=== PATIENT | female | born 1965 | race African-American/Black ===

== ENCOUNTER 2019-02-05 08:22 | Observation (INO) ==
[2019-02-05 08:50] LABS: Basophils % 0.3 % (0.0-0.8); Eosinophils # 0.1 10*3/uL (0.0-0.87); Eosinophils % 1.7 % (0.00-10.9); Hemoglobin 11.8 GM/DL (12.0-16.0); Immature Granulocytes % 0.3 %; Immature Granulocytes Absolute 0.02 #; Lymphocytes % 34.1 % (21.3-54.2); Mean Corpuscular HGB Conc 30.3 GM/DL (32-36); Mean Corpuscular Volume 87.1 FL (87-102); Mean Platelet Volume 9.4 FL (9.6-12.0); Monocytes % 6.9 % (1.7-12.7); Neutrophils % 56.7 % (38.7-73.9); Platelet Count 175 T/CUMM (130-400); Red Blood Count 4.48 MC/CUMM (3.8-5.5); Red Cell Distribution Width 15.9 % (9.3-17.3)
[2019-02-05 09:17] LABS: Alanine Aminotransferase 37 U/L (13-56); Alkaline Phosphatase 99 U/L (45-117); Aspartate Amino Transferase 56 U/L (0-37); Bilirubin,Total < 0.39 MG/DL (0.2-1.0); Blood Urea Nitrogen 16 MG/DL (7-18); Calcium 8.7 MG/DL (8.5-10.1); Glucose 149 MG/DL (74-106); Osmolality,Calculated 280.5 MOS/KG (273-304); Total Protein 9.6 G/DL (6.4-8.3)
[2019-02-05] MEDS ORDERED: traZODone 50 MG TABLET PO PRN (13:31)
[2019-02-05] MEDS ORDERED: ACETAMINOPHEN 325 MG TABLET PO PRN (13:31)
[2019-02-05] MEDS ORDERED: PROMETHAZINE 25 MG/1 ML VIAL IM PRN (13:31)
[2019-02-05] MEDS ORDERED: ZALEPLON 5 MG CAPSULE PO PRN (13:31)
[2019-02-05] MEDS ORDERED: ONDANSETRON 4 MG/2 ML VIAL IV PRN (13:31)
[2019-02-05] MEDS ORDERED: HYDROmorphone 2 MG/1 ML VIAL IV PRN (13:35)
[2019-02-05] MEDS ORDERED: ALUM/MAG/SIMETH/LIDO VISC 1:1 30 ML BOTTLE PO STA (13:45)
[2019-02-05] MEDS ORDERED: PANTOPRAZOLE 40 MG TABLET PO SCH (14:00)
[2019-02-05] MEDS: ENOXAPARIN 120 MG/0.8 ML SYRINGE SUBCUT SCH (14:13)
[2019-02-05] MEDS: SODIUM CHLORIDE 0.9% 1,000 ML IV SCH ×2 (14:13→22:28)
[2019-02-05 14:51] LABS: Free T4 (Free Thyroxine) 1.01 NG/DL (0.76-1.46)
[2019-02-05] MEDS ORDERED: LEVOTHYROXINE 125 MCG TABLET PO SCH (15:17)
[2019-02-05] MEDS ORDERED: NON-FORMULARY MEDICATION (Omeprazole 40 MG) PO SCH (15:17)
[2019-02-05 15:35] LABS: Apearance,Urine CLEAR (Clear); Bilirubin,Urine Negative (Negative); Blood, Urine Negative (Negative); Glucose,Urine (UA) Negative (Negative); Ketones,Urine Negative (Negative); Mucus,Urine Occasional /LPF (Occasional); Nitrite,Urine Negative (Negative); Protein,Urine Negative; RBC,Urine 3 /HPF (0-4); Squamous Epithelial Cell,Urine Occasional /HPF (0-10); Urine Color Straw (Yellow); Urine Specific Gravity 1.053 (1.001-1.035); Urine Urobilinogen < 2.0 EU/DL (0.2-1.0); WBC,Urine 5 /HPF (0-6)
[2019-02-05] MEDS: METAXALONE 800 MG TABLET PO SCH ×2 (15:45→22:22)
[2019-02-05] MEDS ORDERED: MAGNESIUM SULF RIDER 2 GM in PREMIX 1 EACH IV STA (15:46)
[2019-02-05] MEDS: LISINOPRIL/HCTZ 20-25 MG TABLET PO SCH (17:55)
[2019-02-05 19:48] LABS: Troponin I 0.027 NG/ML (0.00-0.045)
[2019-02-05] MEDS ORDERED: SIMVASTATIN 10 MG TABLET PO SCH (21:00)
[2019-02-05] MEDS: PANTOPRAZOLE 40 MG TABLET PO SCH (22:22)
[2019-02-06] MEDS: ENOXAPARIN 120 MG/0.8 ML SYRINGE SUBCUT SCH (01:25)
[2019-02-06 05:07] LABS: Basophils % 0.4 % (0.0-0.8); Eosinophils # 0.2 10*3/uL (0.0-0.87); Eosinophils % 2.8 % (0.00-10.9); Hematocrit 36.8 VOL% (35.7-47.0); Immature Granulocytes % 0.5 %; Immature Granulocytes Absolute 0.03 #; Lymphocytes # 2.1 10*3/uL (1.4-4.0); Lymphocytes % 36.3 % (21.3-54.2); Mean Corpuscular HGB Conc 29.9 GM/DL (32-36); Mean Corpuscular Volume 87.8 FL (87-102); Mean Platelet Volume 9.9 FL (9.6-12.0); Monocytes % 8.3 % (1.7-12.7); Neutrophils % 51.7 % (38.7-73.9); Platelet Count 163 T/CUMM (130-400); Red Blood Count 4.19 MC/CUMM (3.8-5.5); Red Cell Distribution Width 15.9 % (9.3-17.3); White Blood Count 5.7 T/CUMM (4-12)
[2019-02-06 05:30] LABS: Albumin 2.7 G/DL (3.4-5.0); Bilirubin,Total 0.5 MG/DL (0.2-1.0); Calcium 8.4 MG/DL (8.5-10.1); Osmolality,Calculated 278.5 MOS/KG (273-304); Risk Ratio 5.09
[2019-02-06] MEDS: SODIUM CHLORIDE 0.9% 1,000 ML IV SCH (06:28)
[2019-02-06] MEDS ORDERED: KETOROLAC 30 MG/1 ML VIAL IV ONE (08:00)
[2019-02-06] MEDS ORDERED: ASPIRIN EC 81 MG TABLET PO SCH (09:00)
[2019-02-06] MEDS: METAXALONE 800 MG TABLET PO SCH (09:09)
[2019-02-06] MEDS: LISINOPRIL/HCTZ 20-25 MG TABLET PO SCH (09:09)
[2019-02-06] MEDS: PANTOPRAZOLE 40 MG TABLET PO SCH (09:09)
[2019-02-06 11:40] VITALS: BP 122/59
[2019-02-07] MEDS ORDERED: LEVOTHYROXINE 175 MCG TABLET PO SCH (06:30)
== END 2019-02-06 13:38 | disposition home or self-care (01) ==
LOC: N.ED 08:22 → N.EDINP 08:22 → N.TELES 18:26
PROVIDERS: ADMIT Emergency Medicine; ATTEND Emergency Medicine

== ENCOUNTER 2019-08-14 16:43 | Observation (INO) ==
[2019-08-14] MEDS ORDERED: KETOROLAC 30 MG/1 ML VIAL IV STA (17:42)
[2019-08-14] MEDS ORDERED: ONDANSETRON 4 MG/2 ML VIAL IV STA (17:42)
[2019-08-14] MEDS ORDERED: DICYCLOMINE 20 MG/2 ML AMP IM ONE (17:43)
[2019-08-14 18:36] LABS: Basophils % 0.1 % (0.0-0.8); Eosinophils # 0.2 10*3/uL (0.0-0.87); Eosinophils % 2.2 % (0.00-10.9); Hematocrit 35.2 VOL% (35.7-47.0); Hemoglobin 10.9 GM/DL (12.0-16.0); Immature Granulocytes % 0.3 %; Immature Granulocytes Absolute 0.02 #; Lymphocytes % 25.1 % (21.3-54.2); Mean Corpuscular Volume 85.6 FL (87-102); Mean Platelet Volume 9.7 FL (9.6-12.0); Monocytes % 6.7 % (1.7-12.7); Neutrophils % 65.6 % (38.7-73.9); Platelet Count 115 T/CUMM (130-400); Red Blood Count 4.11 MC/CUMM (3.8-5.5); Red Cell Distribution Width 16.7 % (9.3-17.3); White Blood Count 7.9 T/CUMM (4-12)
[2019-08-14 18:59] LABS: Amylase 71 U/L (25-115)
[2019-08-14 19:21] LABS: Estimated Glom Filtration Rate 66 ML/MIN; Glucose 93 MG/DL (74-106); Troponin I < 0.015 NG/ML (0.00-0.045)
[2019-08-14 19:22] LABS: Alanine Aminotransferase 37 U/L (13-56); Albumin 2.9 G/DL (3.4-5.0); Alkaline Phosphatase 134 U/L (45-117); Aspartate Amino Transferase 54 U/L (0-37); Bilirubin,Total < 0.39 MG/DL (0.2-1.0); Blood Urea Nitrogen 22 MG/DL (7-18); Calcium 8.5 MG/DL (8.5-10.1); Osmolality,Calculated 281.4 MOS/KG (273-304); Total Protein 10.4 G/DL (6.4-8.3)
[2019-08-14] MEDS ORDERED: SODIUM CHLORIDE 0.9% 1,000 ML IV STA (19:25)
[2019-08-14 19:55] LABS: Apearance,Urine Slightly Hazy (Clear); Bilirubin,Urine Negative (Negative); Blood, Urine Small mg/dL (Negative); Glucose,Urine (UA) Negative (Negative); Hyaline Casts,Urine 6 /LPF (0-3); Ketones,Urine Negative (Negative); Mucus,Urine Occasional /LPF (Occasional); Nitrite,Urine Negative (Negative); Protein,Urine 30 MG/DL; RBC,Urine 2 /HPF (0-4); Squamous Epithelial Cell,Urine Occasional /HPF (0-10); Urine Color Yellow (Yellow); Urine Specific Gravity 1.027 (1.001-1.035); Urine Urobilinogen < 2.0 EU/DL (0.2-1.0); WBC,Urine 11 /HPF (0-6)
[2019-08-14] MEDS ORDERED: ACETAMINOPHEN 325 MG TABLET PO PRN (20:32)
[2019-08-14] MEDS ORDERED: ONDANSETRON 4 MG/2 ML VIAL IV PRN (20:32)
[2019-08-14] MEDS ORDERED: DEXTROSE 10% 250 ML BAG IV PRN (20:37)
[2019-08-14] MEDS ORDERED: GLUCAGON 1 MG VIAL IM PRN (20:37)
[2019-08-14] MEDS: cefTRIAXone 1,000 MG in SYRINGE 1 EACH IV SCH (21:24)
[2019-08-14] MEDS: SODIUM CHLORIDE 0.9% 1,000 ML IV SCH (21:24)
[2019-08-14] MEDS ORDERED: MAGNESIUM SULF RIDER 1 GM in PREMIX 1 EACH IV ONE (21:30)
[2019-08-14] MEDS: INSULIN REGULAR 100 UNIT/ML SUBCUT SCH (23:19)
[2019-08-14] MEDS: carvediloL 6.25 MG TABLET PO SCH (23:20)
[2019-08-14] MEDS: ENOXAPARIN 40 MG/0.4 ML SYRINGE SUBCUT SCH (23:20)
[2019-08-15 06:20] LABS: Total Protein (Chem) 10.5 G/DL (6.4-8.3)
[2019-08-15 06:56] LABS: Basophils % 0.3 % (0.0-0.8); Eosinophils # 0.2 10*3/uL (0.0-0.87); Eosinophils % 2.1 % (0.00-10.9); Hematocrit 32.9 VOL% (35.7-47.0); Hemoglobin 10.2 GM/DL (12.0-16.0); Immature Granulocytes % 0.3 %; Immature Granulocytes Absolute 0.02 #; Lymphocytes # 1.6 10*3/uL (1.4-4.0); Lymphocytes % 21.2 % (21.3-54.2); Monocytes % 5.9 % (1.7-12.7); Neutrophils % 70.2 % (38.7-73.9); Platelet Count 155 T/CUMM (130-400); Red Blood Count 3.87 MC/CUMM (3.8-5.5); Red Cell Distribution Width 16.6 % (9.3-17.3); White Blood Count 7.7 T/CUMM (4-12)
[2019-08-15] MEDS: LEVOTHYROXINE 175 MCG TABLET PO SCH (07:03)
[2019-08-15 07:18] LABS: Alanine Aminotransferase 31 U/L (13-56); Albumin 2.6 G/DL (3.4-5.0); Alkaline Phosphatase 124 U/L (45-117); Aspartate Amino Transferase 38 U/L (0-37); Bilirubin,Total < 0.39 MG/DL (0.2-1.0); Blood Urea Nitrogen 18 MG/DL (7-18); Estimated Glom Filtration Rate 94 ML/MIN; Glucose 116 MG/DL (74-106); Osmolality,Calculated 283.3 MOS/KG (273-304)
[2019-08-15 07:48] LABS: Albumin (SPE) 3.9 G/DL (3.2-5.3); Albumin (SPE) Rel % 36.7 %; Alpha 1 (SPE) 0.2 G/DL (0.1-0.4); Alpha 1 (SPE) Rel % 1.5 %; Alpha 2 (SPE) 0.6 G/DL (0.4-1.0); Alpha 2 (SPE) Rel % 5.7 %; Beta (SPE) 0.7 G/DL (0.5-1.1); Beta (SPE) Rel % 7.1 %; Gamma (SPE) 5.1 G/DL (0.7-1.7)
[2019-08-15] MEDS ORDERED: LOSARTAN 50 MG TABLET PO SCH (09:00)
[2019-08-15] MEDS: SODIUM CHLORIDE 0.9% 1,000 ML IV SCH (09:53)
[2019-08-15] MEDS: INSULIN REGULAR 100 UNIT/ML SUBCUT SCH ×4 (11:56→22:45)
[2019-08-15] MEDS: SERTRALINE 50 MG TABLET PO SCH (12:01)
[2019-08-15] MEDS: PANTOPRAZOLE 40 MG TABLET PO SCH (12:01)
[2019-08-15] MEDS: carvediloL 6.25 MG TABLET PO SCH ×2 (12:01→17:51)
[2019-08-15] MEDS: SACUBITRIL/VALSARTAN 49-51 MG TABLET PO SCH (22:44)
[2019-08-15] MEDS: POLYETHYLENE GLYCOL POWDER 17 GM PACK PO SCH (22:44)
[2019-08-15] MEDS: ENOXAPARIN 40 MG/0.4 ML SYRINGE SUBCUT SCH (22:44)
[2019-08-15] MEDS: cefTRIAXone 1,000 MG in SYRINGE 1 EACH IV SCH (22:46)
[2019-08-16] MEDS: LEVOTHYROXINE 175 MCG TABLET PO SCH (06:00)
[2019-08-16 10:47] LABS: Total Volume,Urine 4020 ML (400-2000)
[2019-08-16] MEDS: carvediloL 6.25 MG TABLET PO SCH (10:49)
[2019-08-16] MEDS: SACUBITRIL/VALSARTAN 49-51 MG TABLET PO SCH (10:49)
[2019-08-16] MEDS: INSULIN REGULAR 100 UNIT/ML SUBCUT SCH (10:49)
[2019-08-16] MEDS: SERTRALINE 50 MG TABLET PO SCH (10:49)
[2019-08-16] MEDS: POLYETHYLENE GLYCOL POWDER 17 GM PACK PO SCH (10:49)
[2019-08-16] MEDS: PANTOPRAZOLE 40 MG TABLET PO SCH (10:49)
[2019-08-16 11:04] LABS: Total Protein 24 Hr Ur Result 683 MG/24HR (0-149.1)
[2019-08-16 11:42] VITALS: BP 126/63
[2019-08-19 05:47] LABS: 24 Hr Protein (Bench) 683 MG/24HR (0-149.1)
== END 2019-08-16 12:10 | disposition home or self-care (01) ==
LOC: N.EDINP 16:43 → N.ED 16:43 → N.5E 21:01
PROVIDERS: ADMIT Internal Medicine; ATTEND Internal Medicine

== ENCOUNTER 2021-03-24 12:21 | Inpatient (IN) ==
[2021-03-24] MEDS ORDERED: cefTRIAXone 1,000 MG in SODIUM CHLORIDE 0.9% 100 ML IV STA (13:46)
[2021-03-24 15:09] LABS: Basophils % 0.1 % (0.0-0.8); Eosinophils % 0.2 % (0.00-10.9); Hematocrit 38.7 VOL% (35.7-47.0); Hemoglobin 12.3 GM/DL (12.0-16.0); Immature Granulocytes % 0.8 %; Immature Granulocytes Absolute 0.07 #; Lymphocytes # 1.6 10*3/uL (1.4-4.0); Lymphocytes % 18.6 % (21.3-54.2); Mean Corpuscular HGB Conc 31.8 GM/DL (32-36); Mean Corpuscular Volume 83.2 FL (87-102); Mean Platelet Volume 10.3 FL (9.6-12.0); Monocytes % 7.1 % (1.7-12.7); Neutrophils % 73.2 % (38.7-73.9); Platelet Count 170 T/CUMM (130-400); Red Blood Count 4.65 MC/CUMM (3.8-5.5); Red Cell Distribution Width 15.8 % (9.3-17.3); White Blood Count 8.6 T/CUMM (4-12)
[2021-03-24 15:39] LABS: Alanine Aminotransferase 42 U/L (13-56); Alkaline Phosphatase 93 U/L (45-117); Aspartate Amino Transferase 75 U/L (0-37); Bilirubin,Total < 0.39 MG/DL (0.20-1.00); Blood Urea Nitrogen 41 MG/DL (7-18); Calcium 8.4 MG/DL (8.5-10.1); Carbon Dioxide 22 MMOL/L (21-32); Estimated Glom Filtration Rate 36 ML/MIN; Glucose 264 MG/DL (74-106); Osmolality,Calculated 282.5 MOS/KG (273-304); Potassium 4.1 MMOL/L (3.5-5.1); Sodium 132 MMOL/L (136-145); Total Protein 11.8 G/DL (6.4-8.2)
[2021-03-24] MEDS ORDERED: DEXTROSE 50% 25 GM/50 ML VIAL IV PRN ×2 (15:50)
[2021-03-24] MEDS ORDERED: GLUCAGON 1 MG VIAL IM PRN ×2 (15:50)
[2021-03-24] MEDS ORDERED: DEXAMETHASONE 4 MG/1 ML VIAL IV ONE (15:59)
[2021-03-24] MEDS ORDERED: IBUPROFEN 800 MG TABLET PO PRN (16:24)
[2021-03-24] MEDS: ENOXAPARIN 40 MG/0.4 ML SYRINGE SUBCUT SCH (16:44)
[2021-03-24] MEDS: SODIUM CHLORIDE 0.9% 1,000 ML IV SCH ×2 (16:44→18:05)
[2021-03-24] MEDS: INSULIN REGULAR 100 UNIT/ML SUBCUT SCH ×2 (18:48→20:58)
[2021-03-24] MEDS: AZITHROMYCIN INJ 500 MG in SODIUM CHLORIDE 0.9% 250 ML IV SCH (19:00)
[2021-03-24] MEDS: ACETAMINOPHEN 325 MG TABLET PO PRN (19:30)
[2021-03-24] MEDS: ALBUTEROL INHALER 18 GM INH SCH (20:47)
[2021-03-24] MEDS: busPIRone 5 MG TABLET PO SCH (20:57)
[2021-03-24] MEDS: MELATONIN 3 MG TABLET PO PRN (20:57)
[2021-03-24] MEDS: FAMOTIDINE 20 MG TABLET PO SCH (20:57)
[2021-03-24] MEDS: ASCORBIC ACID 500 MG TABLET PO SCH (20:58)
[2021-03-24] MEDS: carvediloL 6.25 MG TABLET PO SCH (20:58)
[2021-03-25] MEDS: ALBUTEROL INHALER 18 GM INH SCH ×4 (00:43→20:46)
[2021-03-25 05:18] LABS: Hematocrit 32.5 VOL% (35.7-47.0); Hemoglobin 10.4 GM/DL (12.0-16.0); Immature Granulocytes % 1.4 %; Lymphocytes # 1.2 10*3/uL (1.4-4.0); Lymphocytes % 17.5 % (21.3-54.2); Mean Platelet Volume 9.6 FL (9.6-12.0); Neutrophils % 75.1 % (38.7-73.9); Platelet Count 169 T/CUMM (130-400); Red Blood Count 3.87 MC/CUMM (3.8-5.5); Red Cell Distribution Width 15.6 % (9.3-17.3)
[2021-03-25 05:37] LABS: Alanine Aminotransferase 30 U/L (13-56); Albumin 2.5 G/DL (3.4-5.0); Alkaline Phosphatase 75 U/L (45-117); Aspartate Amino Transferase 49 U/L (0-37); Bilirubin,Total < 0.39 MG/DL (0.20-1.00); Blood Urea Nitrogen 35 MG/DL (7-18); Calcium 7.8 MG/DL (8.5-10.1); Carbon Dioxide 21 MMOL/L (21-32); Estimated Glom Filtration Rate 52 ML/MIN; Ferritin 537.6 ng/ml (8-252); Glucose 287 MG/DL (74-106); Sodium 136 MMOL/L (136-145); Total Protein 9.7 G/DL (6.4-8.2)
[2021-03-25 05:46] LABS: Hypochromasia Slight; Lymphocytes 14 % (20-55); Microcytosis Slight; Platelet Estimate Adequate; Segmented Neutrophils 81 % (50-85); Total Cells Counted 100
[2021-03-25] MEDS: LEVOTHYROXINE 175 MCG TABLET PO SCH (06:03)
[2021-03-25] MEDS: SODIUM CHLORIDE 0.9% 1,000 ML IV SCH ×2 (07:35→20:46)
[2021-03-25] MEDS: ASCORBIC ACID 500 MG TABLET PO SCH ×2 (08:06→20:45)
[2021-03-25] MEDS: ASPIRIN EC 81 MG TABLET PO SCH (08:06)
[2021-03-25] MEDS: ZINC GLUCONATE 50 MG TABLET PO SCH (08:06)
[2021-03-25] MEDS: INSULIN REGULAR 100 UNIT/ML SUBCUT SCH ×4 (08:06→20:45)
[2021-03-25] MEDS: CHOLECALCIFEROL 1,000 UNIT TABLET PO SCH (08:06)
[2021-03-25] MEDS: CETIRIZINE 10 MG TABLET PO SCH (08:06)
[2021-03-25] MEDS: amLODIPine 10 MG TABLET PO SCH (08:06)
[2021-03-25] MEDS: DEXAMETHASONE 4 MG/1 ML VIAL IV SCH (08:06)
[2021-03-25] MEDS: SERTRALINE 50 MG TABLET PO SCH (08:06)
[2021-03-25] MEDS: carvediloL 6.25 MG TABLET PO SCH ×2 (08:06→20:45)
[2021-03-25] MEDS: busPIRone 5 MG TABLET PO SCH ×3 (08:07→20:44)
[2021-03-25] MEDS: SIMVASTATIN 10 MG TABLET PO SCH (08:07)
[2021-03-25] MEDS: FAMOTIDINE 20 MG TABLET PO SCH ×2 (08:07→20:45)
[2021-03-25] MEDS: LOSARTAN 50 MG TABLET PO SCH (08:07)
[2021-03-25] MEDS ORDERED: PANTOPRAZOLE 40 MG TABLET PO SCH (09:00)
[2021-03-25] MEDS ORDERED: SODIUM CHLORIDE 0.9% 1,000 ML IV SCH (13:30)
[2021-03-25] MEDS: cefTRIAXone 1,000 MG in SODIUM CHLORIDE 0.9% 100 ML IV SCH (15:08)
[2021-03-25] MEDS: ENOXAPARIN 40 MG/0.4 ML SYRINGE SUBCUT SCH (16:46)
[2021-03-25] MEDS: AZITHROMYCIN INJ 500 MG in SODIUM CHLORIDE 0.9% 250 ML IV SCH (17:06)
[2021-03-25] MEDS: MELATONIN 3 MG TABLET PO PRN (20:45)
[2021-03-26] MEDS: ALBUTEROL INHALER 18 GM INH SCH ×4 (02:11→20:01)
[2021-03-26] MEDS: LEVOTHYROXINE 175 MCG TABLET PO SCH (05:41)
[2021-03-26 05:44] LABS: Hematocrit 32.7 VOL% (35.7-47.0); Hemoglobin 10.2 GM/DL (12.0-16.0); Immature Granulocytes % 2.7 %; Immature Granulocytes Absolute 0.24 #; Lymphocytes # 1.3 10*3/uL (1.4-4.0); Lymphocytes % 14.7 % (21.3-54.2); Mean Corpuscular HGB Conc 31.2 GM/DL (32-36); Mean Corpuscular Volume 83.8 FL (87-102); Mean Platelet Volume 10.2 FL (9.6-12.0); Monocytes % 6.6 % (1.7-12.7); NRBC # 0.02 10*3/uL; Platelet Count 214 T/CUMM (130-400); Red Cell Distribution Width 15.7 % (9.3-17.3); White Blood Count 8.8 T/CUMM (4-12)
[2021-03-26 06:07] LABS: Alanine Aminotransferase 27 U/L (13-56); Albumin 2.4 G/DL (3.4-5.0); Alkaline Phosphatase 71 U/L (45-117); Aspartate Amino Transferase 39 U/L (0-37); Bilirubin,Total < 0.39 MG/DL (0.20-1.00); Blood Urea Nitrogen 32 MG/DL (7-18); Calcium 8.3 MG/DL (8.5-10.1); Carbon Dioxide 23 MMOL/L (21-32); Estimated Glom Filtration Rate 66 ML/MIN; Ferritin 512.2 ng/ml (8-252); Glucose 174 MG/DL (74-106); Osmolality,Calculated 287.5 MOS/KG (273-304); Potassium 4.1 MMOL/L (3.5-5.1); Sodium 139 MMOL/L (136-145); Total Protein 9.3 G/DL (6.4-8.2)
[2021-03-26] MEDS: DEXAMETHASONE 4 MG/1 ML VIAL IV SCH (08:17)
[2021-03-26] MEDS: CHOLECALCIFEROL 1,000 UNIT TABLET PO SCH (08:18)
[2021-03-26] MEDS: SIMVASTATIN 10 MG TABLET PO SCH (08:19)
[2021-03-26] MEDS: SERTRALINE 50 MG TABLET PO SCH (08:19)
[2021-03-26] MEDS: ASPIRIN EC 81 MG TABLET PO SCH (08:19)
[2021-03-26] MEDS: busPIRone 5 MG TABLET PO SCH ×3 (08:19→20:00)
[2021-03-26] MEDS: ZINC GLUCONATE 50 MG TABLET PO SCH (08:19)
[2021-03-26] MEDS: FAMOTIDINE 20 MG TABLET PO SCH ×2 (08:19→20:00)
[2021-03-26] MEDS: ASCORBIC ACID 500 MG TABLET PO SCH ×2 (08:19→20:00)
[2021-03-26] MEDS: carvediloL 6.25 MG TABLET PO SCH ×2 (08:20→20:01)
[2021-03-26] MEDS: INSULIN REGULAR 100 UNIT/ML SUBCUT SCH ×4 (08:20→20:01)
[2021-03-26] MEDS: LOSARTAN 50 MG TABLET PO SCH (08:20)
[2021-03-26] MEDS: amLODIPine 10 MG TABLET PO SCH (08:20)
[2021-03-26] MEDS: CETIRIZINE 10 MG TABLET PO SCH (08:20)
[2021-03-26] MEDS: SODIUM CHLORIDE 0.9% 1,000 ML IV SCH ×2 (08:29→14:11)
[2021-03-26] MEDS ORDERED: REMDESIVIR 200 MG in SODIUM CHLORIDE 0.9% 210 ML IV ONE (09:30)
[2021-03-26] MEDS: cefTRIAXone 1,000 MG in SODIUM CHLORIDE 0.9% 100 ML IV SCH (14:40)
[2021-03-26] MEDS: ENOXAPARIN 40 MG/0.4 ML SYRINGE SUBCUT SCH (16:01)
[2021-03-26] MEDS: AZITHROMYCIN INJ 500 MG in SODIUM CHLORIDE 0.9% 250 ML IV SCH (16:01)
[2021-03-27] MEDS: SODIUM CHLORIDE 0.9% 1,000 ML IV SCH ×3 (01:01→13:06)
[2021-03-27] MEDS: ALBUTEROL INHALER 18 GM INH SCH ×4 (01:02→18:12)
[2021-03-27] MEDS: LEVOTHYROXINE 175 MCG TABLET PO SCH (05:43)
[2021-03-27 06:26] LABS: Basophils % 0.1 % (0.0-0.8); Hemoglobin 10.7 GM/DL (12.0-16.0); Immature Granulocytes % 3.2 %; Lymphocytes # 1.3 10*3/uL (1.4-4.0); Lymphocytes % 14.1 % (21.3-54.2); Mean Corpuscular HGB Conc 31.5 GM/DL (32-36); Mean Corpuscular Volume 84.2 FL (87-102); Mean Platelet Volume 9.5 FL (9.6-12.0); Monocytes % 4.2 % (1.7-12.7); Neutrophils % 78.4 % (38.7-73.9); Platelet Count 260 T/CUMM (130-400); Red Blood Count 4.04 MC/CUMM (3.8-5.5); Red Cell Distribution Width 15.4 % (9.3-17.3); White Blood Count 9.5 T/CUMM (4-12)
[2021-03-27 06:49] LABS: Calcium 8.2 MG/DL (8.5-10.1); Osmolality,Calculated 286.5 MOS/KG (273-304); Potassium 3.8 MMOL/L (3.5-5.1)
[2021-03-27] MEDS: INSULIN REGULAR 100 UNIT/ML SUBCUT SCH ×4 (08:21→20:12)
[2021-03-27] MEDS: CHOLECALCIFEROL 1,000 UNIT TABLET PO SCH (08:21)
[2021-03-27] MEDS: DEXAMETHASONE 4 MG/1 ML VIAL IV SCH (08:21)
[2021-03-27] MEDS: LOSARTAN 50 MG TABLET PO SCH (08:22)
[2021-03-27] MEDS: carvediloL 6.25 MG TABLET PO SCH ×2 (08:22→20:12)
[2021-03-27] MEDS: ASCORBIC ACID 500 MG TABLET PO SCH ×2 (08:22→20:12)
[2021-03-27] MEDS: amLODIPine 10 MG TABLET PO SCH (08:22)
[2021-03-27] MEDS: busPIRone 5 MG TABLET PO SCH ×3 (08:22→20:12)
[2021-03-27] MEDS: SIMVASTATIN 10 MG TABLET PO SCH (08:23)
[2021-03-27] MEDS: FAMOTIDINE 20 MG TABLET PO SCH ×2 (08:23→20:12)
[2021-03-27] MEDS: ASPIRIN EC 81 MG TABLET PO SCH (08:23)
[2021-03-27] MEDS: SERTRALINE 50 MG TABLET PO SCH (08:23)
[2021-03-27] MEDS: ZINC GLUCONATE 50 MG TABLET PO SCH (08:23)
[2021-03-27] MEDS: CETIRIZINE 10 MG TABLET PO SCH (08:23)
[2021-03-27] MEDS: REMDESIVIR 100 MG in SODIUM CHLORIDE 0.9% 100 ML IV SCH (09:51)
[2021-03-27] MEDS ORDERED: POTASSIUM CHLORIDE 20 MEQ TABLET PO PRN (12:04)
[2021-03-27] MEDS ORDERED: MAGNESIUM SULF RIDER 4 GM/100 ML PREMIX IV PRN (12:04)
[2021-03-27] MEDS ORDERED: MAGNESIUM SULF RIDER 2 GM/50 ML PREMIX IV PRN (12:04)
[2021-03-27] MEDS ORDERED: POTASSIUM BICARB EFFERVESCENT 20 MEQ TAB.EFF PO PRN (12:12)
[2021-03-27] MEDS: cefTRIAXone 1,000 MG in SODIUM CHLORIDE 0.9% 100 ML IV SCH (15:14)
[2021-03-27] MEDS: ENOXAPARIN 40 MG/0.4 ML SYRINGE SUBCUT SCH (15:58)
[2021-03-27] MEDS: AZITHROMYCIN INJ 500 MG in SODIUM CHLORIDE 0.9% 250 ML IV SCH (15:58)
[2021-03-28] MEDS: ALBUTEROL INHALER 18 GM INH SCH ×4 (02:03→21:06)
[2021-03-28] MEDS: SODIUM CHLORIDE 0.9% 1,000 ML IV SCH ×3 (04:29→17:28)
[2021-03-28] MEDS: LEVOTHYROXINE 175 MCG TABLET PO SCH (06:07)
[2021-03-28 06:29] LABS: Calcium 8.4 MG/DL (8.5-10.1); Osmolality,Calculated 281.7 MOS/KG (273-304); Potassium 4.1 MMOL/L (3.5-5.1)
[2021-03-28] MEDS: INSULIN REGULAR 100 UNIT/ML SUBCUT SCH ×4 (08:55→20:56)
[2021-03-28] MEDS: busPIRone 5 MG TABLET PO SCH ×3 (08:56→20:57)
[2021-03-28] MEDS: LOSARTAN 50 MG TABLET PO SCH (08:56)
[2021-03-28] MEDS: ASPIRIN EC 81 MG TABLET PO SCH (08:56)
[2021-03-28] MEDS: DEXAMETHASONE 4 MG/1 ML VIAL IV SCH ×4 (08:56→20:58)
[2021-03-28] MEDS: carvediloL 6.25 MG TABLET PO SCH ×2 (08:56→20:57)
[2021-03-28] MEDS: ZINC GLUCONATE 50 MG TABLET PO SCH (08:57)
[2021-03-28] MEDS: ASCORBIC ACID 500 MG TABLET PO SCH ×2 (08:57→20:57)
[2021-03-28] MEDS: FAMOTIDINE 20 MG TABLET PO SCH ×2 (08:57→20:55)
[2021-03-28] MEDS: SIMVASTATIN 10 MG TABLET PO SCH (08:57)
[2021-03-28] MEDS: CHOLECALCIFEROL 1,000 UNIT TABLET PO SCH (08:57)
[2021-03-28] MEDS: SERTRALINE 50 MG TABLET PO SCH (08:57)
[2021-03-28] MEDS: amLODIPine 10 MG TABLET PO SCH (08:57)
[2021-03-28] MEDS: CETIRIZINE 10 MG TABLET PO SCH (08:57)
[2021-03-28] MEDS: REMDESIVIR 100 MG in SODIUM CHLORIDE 0.9% 100 ML IV SCH (09:58)
[2021-03-28] MEDS: ENOXAPARIN 40 MG/0.4 ML SYRINGE SUBCUT SCH (15:54)
[2021-03-28] MEDS: cefTRIAXone 1,000 MG in SODIUM CHLORIDE 0.9% 100 ML IV SCH (15:54)
[2021-03-28] MEDS: AZITHROMYCIN INJ 500 MG in SODIUM CHLORIDE 0.9% 250 ML IV SCH (16:40)
[2021-03-29] MEDS: ALBUTEROL INHALER 18 GM INH SCH ×4 (01:29→19:56)
[2021-03-29] MEDS: DEXAMETHASONE 4 MG/1 ML VIAL IV SCH ×4 (03:11→20:32)
[2021-03-29] MEDS: LEVOTHYROXINE 175 MCG TABLET PO SCH (05:45)
[2021-03-29 06:44] LABS: Basophils % 0.2 % (0.0-0.8); Hematocrit 34.9 VOL% (35.7-47.0); Hemoglobin 10.9 GM/DL (12.0-16.0); Immature Granulocytes % 2.8 %; Immature Granulocytes Absolute 0.34 #; Lymphocytes # 0.9 10*3/uL (1.4-4.0); Lymphocytes % 7.2 % (21.3-54.2); Mean Corpuscular HGB Conc 31.2 GM/DL (32-36); Mean Corpuscular Volume 83.7 FL (87-102); Mean Platelet Volume 9.9 FL (9.6-12.0); Neutrophils % 87.8 % (38.7-73.9); Platelet Count 307 T/CUMM (130-400); Red Blood Count 4.17 MC/CUMM (3.8-5.5); Red Cell Distribution Width 15.2 % (9.3-17.3); White Blood Count 12.1 T/CUMM (4-12)
[2021-03-29 07:23] LABS: Alanine Aminotransferase 20 U/L (13-56); Albumin 2.1 G/DL (3.4-5.0); Alkaline Phosphatase 69 U/L (45-117); Aspartate Amino Transferase 36 U/L (0-37); Bilirubin,Total < 0.39 MG/DL (0.20-1.00); Blood Urea Nitrogen 26 MG/DL (7-18); Calcium 8.6 MG/DL (8.5-10.1); Carbon Dioxide 24 MMOL/L (21-32); Estimated Glom Filtration Rate 83 ML/MIN; Ferritin 550.9 ng/ml (8-252); Glucose 227 MG/DL (74-106); Osmolality,Calculated 286.7 MOS/KG (273-304); Potassium 4.4 MMOL/L (3.5-5.1); Sodium 138 MMOL/L (136-145); Total Protein 9.2 G/DL (6.4-8.2)
[2021-03-29] MEDS: INSULIN REGULAR 100 UNIT/ML SUBCUT SCH ×4 (08:30→20:31)
[2021-03-29] MEDS: carvediloL 6.25 MG TABLET PO SCH ×2 (08:31→20:33)
[2021-03-29] MEDS: LOSARTAN 50 MG TABLET PO SCH (08:31)
[2021-03-29] MEDS: amLODIPine 10 MG TABLET PO SCH (08:31)
[2021-03-29] MEDS: CHOLECALCIFEROL 1,000 UNIT TABLET PO SCH (08:31)
[2021-03-29] MEDS: SIMVASTATIN 10 MG TABLET PO SCH (08:32)
[2021-03-29] MEDS: FAMOTIDINE 20 MG TABLET PO SCH ×2 (08:32→20:33)
[2021-03-29] MEDS: CETIRIZINE 10 MG TABLET PO SCH (08:32)
[2021-03-29] MEDS: ASPIRIN EC 81 MG TABLET PO SCH (08:32)
[2021-03-29] MEDS: ZINC GLUCONATE 50 MG TABLET PO SCH (08:32)
[2021-03-29] MEDS: ASCORBIC ACID 500 MG TABLET PO SCH ×2 (08:32→20:33)
[2021-03-29] MEDS: busPIRone 5 MG TABLET PO SCH ×3 (08:32→20:32)
[2021-03-29] MEDS: SERTRALINE 50 MG TABLET PO SCH (08:34)
[2021-03-29] MEDS: REMDESIVIR 100 MG in SODIUM CHLORIDE 0.9% 100 ML IV SCH (09:50)
[2021-03-29] MEDS: SODIUM CHLORIDE 0.9% 1,000 ML IV SCH (09:50)
[2021-03-29] MEDS: LACTATED RINGERS 1,000 ML IV SCH ×3 (10:40→23:59)
[2021-03-29] MEDS: ACETAMINOPHEN 325 MG TABLET PO PRN (14:50)
[2021-03-29] MEDS: cefTRIAXone 1,000 MG in SODIUM CHLORIDE 0.9% 100 ML IV SCH (15:15)
[2021-03-29] MEDS: ENOXAPARIN 40 MG/0.4 ML SYRINGE SUBCUT SCH (17:52)
[2021-03-29] MEDS: AZITHROMYCIN INJ 500 MG in SODIUM CHLORIDE 0.9% 250 ML IV SCH (17:55)
[2021-03-29 22:42] LABS: ABG Base Excess 0.6 MMOL/L (-2.5-2.5); ABG HCO3 24.9 MMOL/L (20-26); ABG Oxygen Saturation 92.7 % (95-100); ABG PCO2 35.2 MM HG (35-48); ABG PH 7.446 (7.35-7.45); ABG PO2 67.5 MM HG (80-95); ABG TCO2 21.8 MMOL/L (23-27)
[2021-03-29] MEDS ORDERED: LORazepam 2 MG/1 ML VIAL IV ONE (22:55)
[2021-03-30] MEDS: ALBUTEROL INHALER 18 GM INH SCH ×4 (00:14→20:27)
[2021-03-30] MEDS: guaiFENesin 200 MG/10 ML UDCUP PO PRN (00:14)
[2021-03-30] MEDS: DEXAMETHASONE 4 MG/1 ML VIAL IV SCH ×4 (03:28→20:28)
[2021-03-30] MEDS: LEVOTHYROXINE 175 MCG TABLET PO SCH (06:21)
[2021-03-30 06:47] LABS: Basophils % 0.1 % (0.0-0.8); Hematocrit 33.9 VOL% (35.7-47.0); Hemoglobin 10.8 GM/DL (12.0-16.0); Immature Granulocytes % 1.8 %; Immature Granulocytes Absolute 0.26 #; Lymphocytes # 0.9 10*3/uL (1.4-4.0); Lymphocytes % 6.3 % (21.3-54.2); Mean Corpuscular HGB Conc 31.9 GM/DL (32-36); Mean Corpuscular Volume 82.7 FL (87-102); Monocytes % 2.1 % (1.7-12.7); Neutrophils % 89.7 % (38.7-73.9); Platelet Count 364 T/CUMM (130-400); Red Cell Distribution Width 15.1 % (9.3-17.3); White Blood Count 14.6 T/CUMM (4-12)
[2021-03-30 07:36] LABS: Calcium 8.8 MG/DL (8.5-10.1); Ferritin 553.7 ng/ml (8-252); Osmolality,Calculated 287.8 MOS/KG (273-304); Potassium 4.3 MMOL/L (3.5-5.1)
[2021-03-30] MEDS: LACTATED RINGERS 1,000 ML IV SCH ×2 (07:46→17:17)
[2021-03-30] MEDS: ASCORBIC ACID 500 MG TABLET PO SCH ×2 (08:01→20:29)
[2021-03-30] MEDS: busPIRone 5 MG TABLET PO SCH ×3 (08:01→20:29)
[2021-03-30] MEDS: INSULIN REGULAR 100 UNIT/ML SUBCUT SCH ×4 (08:01→20:31)
[2021-03-30] MEDS: FAMOTIDINE 20 MG TABLET PO SCH ×2 (08:02→20:29)
[2021-03-30] MEDS: SIMVASTATIN 10 MG TABLET PO SCH (08:02)
[2021-03-30] MEDS: ASPIRIN EC 81 MG TABLET PO SCH (08:02)
[2021-03-30] MEDS: CETIRIZINE 10 MG TABLET PO SCH (08:02)
[2021-03-30] MEDS: LOSARTAN 50 MG TABLET PO SCH (08:02)
[2021-03-30] MEDS: amLODIPine 10 MG TABLET PO SCH (08:02)
[2021-03-30] MEDS: SERTRALINE 50 MG TABLET PO SCH (08:02)
[2021-03-30] MEDS: carvediloL 6.25 MG TABLET PO SCH ×2 (08:02→20:29)
[2021-03-30] MEDS: CHOLECALCIFEROL 1,000 UNIT TABLET PO SCH (08:03)
[2021-03-30] MEDS: ZINC GLUCONATE 50 MG TABLET PO SCH (08:03)
[2021-03-30] MEDS: REMDESIVIR 100 MG in SODIUM CHLORIDE 0.9% 100 ML IV SCH (09:18)
[2021-03-30] MEDS: cefTRIAXone 1,000 MG in SODIUM CHLORIDE 0.9% 100 ML IV SCH (14:20)
[2021-03-30] MEDS: AZITHROMYCIN INJ 500 MG in SODIUM CHLORIDE 0.9% 250 ML IV SCH (16:13)
[2021-03-30] MEDS: ENOXAPARIN 40 MG/0.4 ML SYRINGE SUBCUT SCH (16:20)
[2021-03-30] MEDS: ACETAMINOPHEN 325 MG TABLET PO PRN (20:36)
[2021-03-31] MEDS: ALBUTEROL INHALER 18 GM INH SCH ×4 (01:14→18:04)
[2021-03-31] MEDS: LACTATED RINGERS 1,000 ML IV SCH ×2 (01:30→11:39)
[2021-03-31] MEDS: DEXAMETHASONE 4 MG/1 ML VIAL IV SCH ×4 (03:38→20:25)
[2021-03-31] MEDS: LEVOTHYROXINE 175 MCG TABLET PO SCH (06:15)
[2021-03-31 06:48] LABS: Basophils % 0.1 % (0.0-0.8); Hematocrit 34.6 VOL% (35.7-47.0); Immature Granulocytes % 2.3 %; Immature Granulocytes Absolute 0.29 #; Lymphocytes # 0.9 10*3/uL (1.4-4.0); Mean Corpuscular HGB Conc 31.8 GM/DL (32-36); Mean Corpuscular Volume 82.6 FL (87-102); Mean Platelet Volume 10.1 FL (9.6-12.0); Monocytes % 2.8 % (1.7-12.7); Neutrophils % 87.8 % (38.7-73.9); Platelet Count 395 T/CUMM (130-400); Red Blood Count 4.19 MC/CUMM (3.8-5.5); White Blood Count 12.7 T/CUMM (4-12)
[2021-03-31 07:07] LABS: Calcium 8.8 MG/DL (8.5-10.1); Ferritin 474.9 ng/ml (8-252); Osmolality,Calculated 284.2 MOS/KG (273-304); Potassium 4.3 MMOL/L (3.5-5.1)
[2021-03-31] MEDS: CETIRIZINE 10 MG TABLET PO SCH (08:06)
[2021-03-31] MEDS: ASCORBIC ACID 500 MG TABLET PO SCH ×2 (08:06→20:18)
[2021-03-31] MEDS: SERTRALINE 50 MG TABLET PO SCH (08:06)
[2021-03-31] MEDS: amLODIPine 10 MG TABLET PO SCH (08:06)
[2021-03-31] MEDS: busPIRone 5 MG TABLET PO SCH ×3 (08:06→20:18)
[2021-03-31] MEDS: carvediloL 6.25 MG TABLET PO SCH ×2 (08:06→20:18)
[2021-03-31] MEDS: ASPIRIN EC 81 MG TABLET PO SCH (08:06)
[2021-03-31] MEDS: ZINC GLUCONATE 50 MG TABLET PO SCH (08:06)
[2021-03-31] MEDS: CHOLECALCIFEROL 1,000 UNIT TABLET PO SCH (08:06)
[2021-03-31] MEDS: LOSARTAN 50 MG TABLET PO SCH (08:07)
[2021-03-31] MEDS: INSULIN REGULAR 100 UNIT/ML SUBCUT SCH ×4 (08:07→20:24)
[2021-03-31] MEDS: FAMOTIDINE 20 MG TABLET PO SCH ×2 (08:07→20:19)
[2021-03-31] MEDS: SIMVASTATIN 10 MG TABLET PO SCH (08:07)
[2021-03-31] MEDS: INSULIN GLARGINE 100 UNIT/ML SUBCUT SCH (11:37)
[2021-03-31] MEDS: ACETAMINOPHEN 325 MG TABLET PO PRN (12:55)
[2021-03-31] MEDS: guaiFENesin 200 MG/10 ML UDCUP PO PRN (12:55)
[2021-03-31] MEDS: cefTRIAXone 1,000 MG in SODIUM CHLORIDE 0.9% 100 ML IV SCH (14:33)
[2021-03-31] MEDS: ENOXAPARIN 40 MG/0.4 ML SYRINGE SUBCUT SCH (15:54)
[2021-03-31] MEDS: AZITHROMYCIN INJ 500 MG in SODIUM CHLORIDE 0.9% 250 ML IV SCH (15:55)
[2021-04-01] MEDS: LACTATED RINGERS 1,000 ML IV SCH ×4 (00:37→23:26)
[2021-04-01] MEDS: ALBUTEROL INHALER 18 GM INH SCH ×6 (00:38→18:11)
[2021-04-01] MEDS: guaiFENesin 200 MG/10 ML UDCUP PO PRN ×4 (01:55→15:13)
[2021-04-01] MEDS: DEXAMETHASONE 4 MG/1 ML VIAL IV SCH ×4 (02:57→20:48)
[2021-04-01] MEDS: guaiFENesin/DM ER 600-30 MG TABLET PO PRN ×2 (03:17→08:38)
[2021-04-01] MEDS: ACETAMINOPHEN 325 MG TABLET PO PRN ×2 (04:34→12:10)
[2021-04-01] MEDS: LEVOTHYROXINE 175 MCG TABLET PO SCH (05:39)
[2021-04-01 06:41] LABS: Basophils % 0.1 % (0.0-0.8); Hematocrit 35.7 VOL% (35.7-47.0); Hemoglobin 11.4 GM/DL (12.0-16.0); Immature Granulocytes % 1.8 %; Immature Granulocytes Absolute 0.22 #; Lymphocytes # 0.9 10*3/uL (1.4-4.0); Lymphocytes % 7.3 % (21.3-54.2); Mean Corpuscular HGB Conc 31.9 GM/DL (32-36); Mean Corpuscular Volume 81.9 FL (87-102); Mean Platelet Volume 9.6 FL (9.6-12.0); Monocytes % 2.9 % (1.7-12.7); Neutrophils % 87.9 % (38.7-73.9); Platelet Count 373 T/CUMM (130-400); Red Blood Count 4.36 MC/CUMM (3.8-5.5); Red Cell Distribution Width 14.6 % (9.3-17.3)
[2021-04-01 07:16] LABS: Calcium 8.8 MG/DL (8.5-10.1); Osmolality,Calculated 275.7 MOS/KG (273-304); Potassium 4.4 MMOL/L (3.5-5.1)
[2021-04-01] MEDS: SIMVASTATIN 10 MG TABLET PO SCH (08:36)
[2021-04-01] MEDS: busPIRone 5 MG TABLET PO SCH ×3 (08:36→20:48)
[2021-04-01] MEDS: SERTRALINE 50 MG TABLET PO SCH (08:37)
[2021-04-01] MEDS: ZINC GLUCONATE 50 MG TABLET PO SCH (08:37)
[2021-04-01] MEDS: amLODIPine 10 MG TABLET PO SCH (08:37)
[2021-04-01] MEDS: FAMOTIDINE 20 MG TABLET PO SCH ×2 (08:37→20:48)
[2021-04-01] MEDS: CETIRIZINE 10 MG TABLET PO SCH (08:37)
[2021-04-01] MEDS: ASCORBIC ACID 500 MG TABLET PO SCH ×2 (08:37→20:48)
[2021-04-01] MEDS: ASPIRIN EC 81 MG TABLET PO SCH (08:37)
[2021-04-01] MEDS: CHOLECALCIFEROL 1,000 UNIT TABLET PO SCH (08:38)
[2021-04-01] MEDS: LOSARTAN 50 MG TABLET PO SCH (08:38)
[2021-04-01] MEDS: carvediloL 6.25 MG TABLET PO SCH ×2 (08:38→20:48)
[2021-04-01] MEDS: INSULIN GLARGINE 100 UNIT/ML SUBCUT SCH (08:39)
[2021-04-01] MEDS: INSULIN REGULAR 100 UNIT/ML SUBCUT SCH ×4 (08:39→20:49)
[2021-04-01] MEDS: ENOXAPARIN 60 MG/0.6 ML SYRINGE SUBCUT SCH ×2 (11:05→20:48)
[2021-04-01] MEDS: cefTRIAXone 1,000 MG in SODIUM CHLORIDE 0.9% 100 ML IV SCH (15:17)
[2021-04-02] MEDS: ALBUTEROL INHALER 18 GM INH SCH ×4 (01:41→20:48)
[2021-04-02] MEDS: DEXAMETHASONE 4 MG/1 ML VIAL IV SCH ×4 (03:44→20:47)
[2021-04-02] MEDS: LEVOTHYROXINE 175 MCG TABLET PO SCH (05:38)
[2021-04-02 06:09] LABS: Hemoglobin 10.8 GM/DL (12.0-16.0); Immature Granulocytes % 1.1 %; Immature Granulocytes Absolute 0.11 #; Lymphocytes # 0.7 10*3/uL (1.4-4.0); Lymphocytes % 6.8 % (21.3-54.2); Mean Corpuscular HGB Conc 31.8 GM/DL (32-36); Mean Corpuscular Volume 82.3 FL (87-102); Mean Platelet Volume 9.4 FL (9.6-12.0); Monocytes % 3.3 % (1.7-12.7); Neutrophils % 88.8 % (38.7-73.9); Platelet Count 338 T/CUMM (130-400); Red Blood Count 4.13 MC/CUMM (3.8-5.5); Red Cell Distribution Width 14.6 % (9.3-17.3); White Blood Count 10.3 T/CUMM (4-12)
[2021-04-02] MEDS: LACTATED RINGERS 1,000 ML IV SCH ×4 (06:17→20:41)
[2021-04-02 06:21] LABS: Calcium 8.3 MG/DL (8.5-10.1); Ferritin 436.1 ng/ml (8-252); Osmolality,Calculated 284.1 MOS/KG (273-304); Potassium 4.6 MMOL/L (3.5-5.1)
[2021-04-02] MEDS: INSULIN REGULAR 100 UNIT/ML SUBCUT SCH ×4 (08:16→20:44)
[2021-04-02] MEDS: SIMVASTATIN 10 MG TABLET PO SCH (08:17)
[2021-04-02] MEDS: INSULIN GLARGINE 100 UNIT/ML SUBCUT SCH (08:17)
[2021-04-02] MEDS: LOSARTAN 50 MG TABLET PO SCH (08:18)
[2021-04-02] MEDS: CHOLECALCIFEROL 1,000 UNIT TABLET PO SCH (08:18)
[2021-04-02] MEDS: amLODIPine 10 MG TABLET PO SCH (08:18)
[2021-04-02] MEDS: ASCORBIC ACID 500 MG TABLET PO SCH ×2 (08:19→20:51)
[2021-04-02] MEDS: busPIRone 5 MG TABLET PO SCH ×3 (08:19→20:43)
[2021-04-02] MEDS: SERTRALINE 50 MG TABLET PO SCH (08:19)
[2021-04-02] MEDS: carvediloL 6.25 MG TABLET PO SCH ×2 (08:19→20:43)
[2021-04-02] MEDS: ASPIRIN EC 81 MG TABLET PO SCH (08:19)
[2021-04-02] MEDS: ZINC GLUCONATE 50 MG TABLET PO SCH (08:19)
[2021-04-02] MEDS: CETIRIZINE 10 MG TABLET PO SCH (08:19)
[2021-04-02] MEDS: FAMOTIDINE 20 MG TABLET PO SCH ×2 (08:19→20:43)
[2021-04-02] MEDS: ENOXAPARIN 60 MG/0.6 ML SYRINGE SUBCUT SCH ×2 (08:19→20:45)
[2021-04-02] MEDS ORDERED: MAGNESIUM HYDROXIDE SUSP 30 ML UDCUP PO PRN (17:07)
[2021-04-02] MEDS: ONDANSETRON 4 MG/2 ML VIAL IV PRN (18:48)
[2021-04-02] MEDS: ACETAMINOPHEN 325 MG TABLET PO PRN (20:48)
[2021-04-02] MEDS: guaiFENesin 200 MG/10 ML UDCUP PO PRN (23:15)
[2021-04-03] MEDS: ALBUTEROL INHALER 18 GM INH SCH ×4 (01:00→19:30)
[2021-04-03] MEDS: DEXAMETHASONE 4 MG/1 ML VIAL IV SCH ×4 (02:43→21:26)
[2021-04-03] MEDS: LEVOTHYROXINE 175 MCG TABLET PO SCH (05:56)
[2021-04-03] MEDS: LACTATED RINGERS 1,000 ML IV SCH ×3 (05:59→21:20)
[2021-04-03] MEDS: busPIRone 5 MG TABLET PO SCH ×3 (10:40→21:25)
[2021-04-03] MEDS: ASPIRIN EC 81 MG TABLET PO SCH (10:40)
[2021-04-03] MEDS: LOSARTAN 50 MG TABLET PO SCH (10:41)
[2021-04-03] MEDS: carvediloL 6.25 MG TABLET PO SCH ×2 (10:43→21:26)
[2021-04-03] MEDS: ASCORBIC ACID 500 MG TABLET PO SCH ×2 (10:44→21:28)
[2021-04-03] MEDS: SIMVASTATIN 10 MG TABLET PO SCH (10:44)
[2021-04-03] MEDS: ENOXAPARIN 60 MG/0.6 ML SYRINGE SUBCUT SCH ×2 (10:44→21:27)
[2021-04-03] MEDS: CHOLECALCIFEROL 1,000 UNIT TABLET PO SCH (10:44)
[2021-04-03] MEDS: ZINC GLUCONATE 50 MG TABLET PO SCH (10:44)
[2021-04-03] MEDS: FAMOTIDINE 20 MG TABLET PO SCH ×2 (10:44→21:25)
[2021-04-03] MEDS: amLODIPine 10 MG TABLET PO SCH (10:44)
[2021-04-03] MEDS: SERTRALINE 50 MG TABLET PO SCH (10:45)
[2021-04-03] MEDS: CETIRIZINE 10 MG TABLET PO SCH (10:45)
[2021-04-03] MEDS: INSULIN GLARGINE 100 UNIT/ML SUBCUT SCH (11:05)
[2021-04-03] MEDS: INSULIN REGULAR 100 UNIT/ML SUBCUT SCH ×5 (11:06→21:25)
[2021-04-03] MEDS: ACETAMINOPHEN 325 MG TABLET PO PRN (18:47)
[2021-04-04] MEDS: ALBUTEROL INHALER 18 GM INH SCH ×4 (01:15→18:20)
[2021-04-04] MEDS: DEXAMETHASONE 4 MG/1 ML VIAL IV SCH ×4 (03:37→20:39)
[2021-04-04 05:04] LABS: Hemoglobin 10.5 GM/DL (12.0-16.0); Immature Granulocytes % 1.1 %; Lymphocytes # 0.7 10*3/uL (1.4-4.0); Lymphocytes % 7.1 % (21.3-54.2); Mean Corpuscular HGB Conc 31.8 GM/DL (32-36); Mean Corpuscular Volume 82.1 FL (87-102); Mean Platelet Volume 9.8 FL (9.6-12.0); Monocytes % 3.6 % (1.7-12.7); Neutrophils % 88.2 % (38.7-73.9); Platelet Count 282 T/CUMM (130-400); Red Blood Count 4.02 MC/CUMM (3.8-5.5); Red Cell Distribution Width 14.6 % (9.3-17.3); White Blood Count 9.5 T/CUMM (4-12)
[2021-04-04 05:30] LABS: Calcium 8.3 MG/DL (8.5-10.1); Osmolality,Calculated 281.7 MOS/KG (273-304); Potassium 4.7 MMOL/L (3.5-5.1)
[2021-04-04] MEDS: LEVOTHYROXINE 175 MCG TABLET PO SCH (05:54)
[2021-04-04] MEDS: LACTATED RINGERS 1,000 ML IV SCH ×2 (07:10→17:23)
[2021-04-04] MEDS: ASPIRIN EC 81 MG TABLET PO SCH (09:51)
[2021-04-04] MEDS: LOSARTAN 50 MG TABLET PO SCH (09:51)
[2021-04-04] MEDS: busPIRone 5 MG TABLET PO SCH ×3 (09:52→20:36)
[2021-04-04] MEDS: FAMOTIDINE 20 MG TABLET PO SCH ×2 (09:53→20:36)
[2021-04-04] MEDS: amLODIPine 10 MG TABLET PO SCH (10:02)
[2021-04-04] MEDS: carvediloL 6.25 MG TABLET PO SCH ×2 (10:03→20:34)
[2021-04-04] MEDS: SIMVASTATIN 10 MG TABLET PO SCH (10:03)
[2021-04-04] MEDS: SERTRALINE 50 MG TABLET PO SCH (10:04)
[2021-04-04] MEDS: CETIRIZINE 10 MG TABLET PO SCH (10:05)
[2021-04-04] MEDS: ZINC GLUCONATE 50 MG TABLET PO SCH (10:06)
[2021-04-04] MEDS: ASCORBIC ACID 500 MG TABLET PO SCH ×2 (10:07→20:34)
[2021-04-04] MEDS: CHOLECALCIFEROL 1,000 UNIT TABLET PO SCH (10:07)
[2021-04-04] MEDS: INSULIN REGULAR 100 UNIT/ML SUBCUT SCH ×4 (10:15→20:37)
[2021-04-04] MEDS: INSULIN GLARGINE 100 UNIT/ML SUBCUT SCH (10:17)
[2021-04-04] MEDS: ENOXAPARIN 60 MG/0.6 ML SYRINGE SUBCUT SCH ×2 (10:22→20:40)
[2021-04-05] MEDS: ALBUTEROL INHALER 18 GM INH SCH ×2 (01:15→12:56)
[2021-04-05] MEDS: DEXAMETHASONE 4 MG/1 ML VIAL IV SCH ×4 (02:16→21:36)
[2021-04-05] MEDS: LACTATED RINGERS 1,000 ML IV SCH ×2 (02:16→13:32)
[2021-04-05] MEDS: LEVOTHYROXINE 175 MCG TABLET PO SCH (05:59)
[2021-04-05 06:11] LABS: Basophils % 0.2 % (0.0-0.8); Hematocrit 37.1 VOL% (35.7-47.0); Immature Granulocytes % 1.1 %; Immature Granulocytes Absolute 0.11 #; Lymphocytes # 0.7 10*3/uL (1.4-4.0); Lymphocytes % 7.4 % (21.3-54.2); Mean Corpuscular HGB Conc 32.3 GM/DL (32-36); Mean Corpuscular Volume 81.7 FL (87-102); Mean Platelet Volume 9.6 FL (9.6-12.0); Monocytes % 4.4 % (1.7-12.7); Neutrophils % 86.9 % (38.7-73.9); Platelet Count 281 T/CUMM (130-400); Red Blood Count 4.54 MC/CUMM (3.8-5.5); Red Cell Distribution Width 14.6 % (9.3-17.3)
[2021-04-05 06:32] LABS: Calcium 8.7 MG/DL (8.5-10.1); Osmolality,Calculated 275.1 MOS/KG (273-304); Potassium 4.6 MMOL/L (3.5-5.1)
[2021-04-05] MEDS: INSULIN REGULAR 100 UNIT/ML SUBCUT SCH ×4 (10:37→21:37)
[2021-04-05] MEDS: ASCORBIC ACID 500 MG TABLET PO SCH ×2 (10:38→21:36)
[2021-04-05] MEDS: busPIRone 5 MG TABLET PO SCH ×3 (10:38→21:35)
[2021-04-05] MEDS: ASPIRIN EC 81 MG TABLET PO SCH (10:38)
[2021-04-05] MEDS: ZINC GLUCONATE 50 MG TABLET PO SCH (10:38)
[2021-04-05] MEDS: CHOLECALCIFEROL 1,000 UNIT TABLET PO SCH (10:38)
[2021-04-05] MEDS: carvediloL 6.25 MG TABLET PO SCH ×2 (10:38→21:36)
[2021-04-05] MEDS: amLODIPine 10 MG TABLET PO SCH (10:39)
[2021-04-05] MEDS: CETIRIZINE 10 MG TABLET PO SCH (10:39)
[2021-04-05] MEDS: FAMOTIDINE 20 MG TABLET PO SCH ×2 (10:39→21:36)
[2021-04-05] MEDS: SERTRALINE 50 MG TABLET PO SCH (10:39)
[2021-04-05] MEDS: LOSARTAN 50 MG TABLET PO SCH (10:39)
[2021-04-05] MEDS: INSULIN GLARGINE 100 UNIT/ML SUBCUT SCH (10:41)
[2021-04-05] MEDS: RIVAROXABAN 10 MG TABLET PO SCH (10:53)
[2021-04-05] MEDS: ENOXAPARIN 60 MG/0.6 ML SYRINGE SUBCUT SCH (12:55)
[2021-04-05] MEDS: ALBUTEROL 2.5 MG/3 ML NEB RESP TX SCH ×2 (13:42→19:34)
[2021-04-05] MEDS: SIMVASTATIN 10 MG TABLET PO SCH (21:36)
[2021-04-06] MEDS: ALBUTEROL 2.5 MG/3 ML NEB RESP TX SCH ×4 (00:05→19:46)
[2021-04-06] MEDS: DEXAMETHASONE 4 MG/1 ML VIAL IV SCH ×4 (03:01→21:16)
[2021-04-06] MEDS: LACTATED RINGERS 1,000 ML IV SCH ×3 (03:02→22:49)
[2021-04-06 05:38] LABS: Basophils % 0.1 % (0.0-0.8); Hematocrit 34.3 VOL% (35.7-47.0); Hemoglobin 10.8 GM/DL (12.0-16.0); Immature Granulocytes % 0.9 %; Immature Granulocytes Absolute 0.08 #; Lymphocytes # 0.6 10*3/uL (1.4-4.0); Lymphocytes % 6.5 % (21.3-54.2); Mean Corpuscular HGB Conc 31.5 GM/DL (32-36); Mean Corpuscular Volume 83.9 FL (87-102); Mean Platelet Volume 9.9 FL (9.6-12.0); Monocytes % 2.9 % (1.7-12.7); Neutrophils % 89.6 % (38.7-73.9); Platelet Count 244 T/CUMM (130-400); Red Blood Count 4.09 MC/CUMM (3.8-5.5); Red Cell Distribution Width 14.6 % (9.3-17.3); White Blood Count 8.8 T/CUMM (4-12)
[2021-04-06 06:05] LABS: Calcium 8.5 MG/DL (8.5-10.1); Osmolality,Calculated 277.8 MOS/KG (273-304); Potassium 4.5 MMOL/L (3.5-5.1)
[2021-04-06] MEDS: LEVOTHYROXINE 175 MCG TABLET PO SCH (06:16)
[2021-04-06] MEDS: LOSARTAN 50 MG TABLET PO SCH (09:58)
[2021-04-06] MEDS: CETIRIZINE 10 MG TABLET PO SCH (09:58)
[2021-04-06] MEDS: RIVAROXABAN 10 MG TABLET PO SCH (09:59)
[2021-04-06] MEDS: CHOLECALCIFEROL 1,000 UNIT TABLET PO SCH (09:59)
[2021-04-06] MEDS: ASCORBIC ACID 500 MG TABLET PO SCH ×2 (09:59→21:17)
[2021-04-06] MEDS: amLODIPine 10 MG TABLET PO SCH (09:59)
[2021-04-06] MEDS: FAMOTIDINE 20 MG TABLET PO SCH ×2 (09:59→21:17)
[2021-04-06] MEDS: ZINC GLUCONATE 50 MG TABLET PO SCH (09:59)
[2021-04-06] MEDS: ASPIRIN EC 81 MG TABLET PO SCH (09:59)
[2021-04-06] MEDS: INSULIN GLARGINE 100 UNIT/ML SUBCUT SCH (10:00)
[2021-04-06] MEDS: INSULIN REGULAR 100 UNIT/ML SUBCUT SCH ×4 (10:00→21:16)
[2021-04-06] MEDS: busPIRone 5 MG TABLET PO SCH ×3 (10:00→21:16)
[2021-04-06] MEDS: SERTRALINE 50 MG TABLET PO SCH (10:00)
[2021-04-06] MEDS: carvediloL 6.25 MG TABLET PO SCH ×2 (10:00→21:17)
[2021-04-06] MEDS: metFORMIN 500 MG TABLET PO SCH (17:07)
[2021-04-06] MEDS: SIMVASTATIN 10 MG TABLET PO SCH (21:17)
[2021-04-06] MEDS: NAPROXEN 250 MG TABLET PO PRN (22:42)
[2021-04-06] MEDS ORDERED: NAPROXEN 250 MG TABLET PO SCH (23:00)
[2021-04-07] MEDS: ALBUTEROL 2.5 MG/3 ML NEB RESP TX SCH ×4 (00:04→19:33)
[2021-04-07] MEDS: DEXAMETHASONE 4 MG/1 ML VIAL IV SCH ×2 (02:25→10:20)
[2021-04-07] MEDS: LACTATED RINGERS 1,000 ML IV SCH (04:13)
[2021-04-07] MEDS: LEVOTHYROXINE 175 MCG TABLET PO SCH (05:31)
[2021-04-07 05:33] LABS: Hemoglobin 10.2 GM/DL (12.0-16.0); Immature Granulocytes % 0.9 %; Immature Granulocytes Absolute 0.08 #; Lymphocytes # 0.6 10*3/uL (1.4-4.0); Lymphocytes % 6.3 % (21.3-54.2); Mean Corpuscular HGB Conc 30.9 GM/DL (32-36); Mean Corpuscular Volume 84.2 FL (87-102); Mean Platelet Volume 10.1 FL (9.6-12.0); Neutrophils % 88.8 % (38.7-73.9); Platelet Count 239 T/CUMM (130-400); Red Blood Count 3.92 MC/CUMM (3.8-5.5); Red Cell Distribution Width 14.7 % (9.3-17.3); White Blood Count 8.8 T/CUMM (4-12)
[2021-04-07 05:44] LABS: Calcium 8.5 MG/DL (8.5-10.1); Osmolality,Calculated 280.8 MOS/KG (273-304)
[2021-04-07] MEDS: ZINC GLUCONATE 50 MG TABLET PO SCH (10:18)
[2021-04-07] MEDS: carvediloL 6.25 MG TABLET PO SCH ×2 (10:18→22:47)
[2021-04-07] MEDS: metFORMIN 500 MG TABLET PO SCH ×2 (10:18→18:32)
[2021-04-07] MEDS: RIVAROXABAN 10 MG TABLET PO SCH (10:18)
[2021-04-07] MEDS: CHOLECALCIFEROL 1,000 UNIT TABLET PO SCH (10:18)
[2021-04-07] MEDS: ASPIRIN EC 81 MG TABLET PO SCH (10:19)
[2021-04-07] MEDS: SERTRALINE 50 MG TABLET PO SCH (10:19)
[2021-04-07] MEDS: LOSARTAN 50 MG TABLET PO SCH (10:19)
[2021-04-07] MEDS: ASCORBIC ACID 500 MG TABLET PO SCH ×2 (10:19→22:48)
[2021-04-07] MEDS: FAMOTIDINE 20 MG TABLET PO SCH ×2 (10:19→22:47)
[2021-04-07] MEDS: CETIRIZINE 10 MG TABLET PO SCH (10:19)
[2021-04-07] MEDS: amLODIPine 10 MG TABLET PO SCH (10:19)
[2021-04-07] MEDS: busPIRone 5 MG TABLET PO SCH ×3 (10:19→22:47)
[2021-04-07] MEDS: INSULIN GLARGINE 100 UNIT/ML SUBCUT SCH (10:20)
[2021-04-07] MEDS: INSULIN REGULAR 100 UNIT/ML SUBCUT SCH ×4 (10:21→22:59)
[2021-04-07] MEDS ORDERED: FUROSEMIDE 40 MG/4 ML VIAL IV ONE (10:58)
[2021-04-07] MEDS: SIMVASTATIN 10 MG TABLET PO SCH (22:48)
[2021-04-08] MEDS: LACTATED RINGERS 1,000 ML IV SCH ×2 (00:37→00:39)
[2021-04-08] MEDS: ALBUTEROL 2.5 MG/3 ML NEB RESP TX SCH ×4 (01:35→18:05)
[2021-04-08] MEDS: LEVOTHYROXINE 175 MCG TABLET PO SCH (05:39)
[2021-04-08 06:26] LABS: Eosinophils % 0.3 % (0.00-10.9); Hemoglobin 10.9 GM/DL (12.0-16.0); Lymphocytes # 1.3 10*3/uL (1.4-4.0); Lymphocytes % 12.3 % (21.3-54.2); Mean Corpuscular HGB Conc 32.1 GM/DL (32-36); Mean Corpuscular Volume 83.5 FL (87-102); Mean Platelet Volume 10.3 FL (9.6-12.0); Monocytes % 6.3 % (1.7-12.7); Neutrophils % 80.1 % (38.7-73.9); Platelet Count 243 T/CUMM (130-400); Red Blood Count 4.07 MC/CUMM (3.8-5.5); Red Cell Distribution Width 14.8 % (9.3-17.3); White Blood Count 10.4 T/CUMM (4-12)
[2021-04-08 06:59] LABS: Calcium 8.3 MG/DL (8.5-10.1); Osmolality,Calculated 286.3 MOS/KG (273-304); Potassium 4.7 MMOL/L (3.5-5.1)
[2021-04-08] MEDS: INSULIN REGULAR 100 UNIT/ML SUBCUT SCH ×4 (08:31→22:31)
[2021-04-08] MEDS ORDERED: FUROSEMIDE 40 MG/4 ML VIAL IV ONE (09:00)
[2021-04-08] MEDS: ZINC GLUCONATE 50 MG TABLET PO SCH (09:03)
[2021-04-08] MEDS: RIVAROXABAN 10 MG TABLET PO SCH (09:03)
[2021-04-08] MEDS: FAMOTIDINE 20 MG TABLET PO SCH ×2 (09:03→22:30)
[2021-04-08] MEDS: ASPIRIN EC 81 MG TABLET PO SCH (09:03)
[2021-04-08] MEDS: busPIRone 5 MG TABLET PO SCH ×3 (09:04→22:30)
[2021-04-08] MEDS: carvediloL 6.25 MG TABLET PO SCH ×2 (09:04→22:30)
[2021-04-08] MEDS: ASCORBIC ACID 500 MG TABLET PO SCH ×2 (09:04→22:30)
[2021-04-08] MEDS: LOSARTAN 50 MG TABLET PO SCH (09:04)
[2021-04-08] MEDS: predniSONE 50 MG TABLET PO SCH (09:04)
[2021-04-08] MEDS: CETIRIZINE 10 MG TABLET PO SCH (09:04)
[2021-04-08] MEDS: amLODIPine 10 MG TABLET PO SCH (09:05)
[2021-04-08] MEDS: metFORMIN 500 MG TABLET PO SCH ×2 (09:05→16:49)
[2021-04-08] MEDS: SERTRALINE 50 MG TABLET PO SCH (09:05)
[2021-04-08] MEDS: INSULIN GLARGINE 100 UNIT/ML SUBCUT SCH (09:06)
[2021-04-08] MEDS: CHOLECALCIFEROL 1,000 UNIT TABLET PO SCH (09:22)
[2021-04-08] MEDS: SIMVASTATIN 10 MG TABLET PO SCH (22:31)
[2021-04-09] MEDS: ALBUTEROL 2.5 MG/3 ML NEB RESP TX SCH ×4 (01:15→19:40)
[2021-04-09 04:59] LABS: Basophils % 0.1 % (0.0-0.8); Eosinophils # 0.1 10*3/uL (0.0-0.87); Eosinophils % 0.6 % (0.00-10.9); Hematocrit 34.8 VOL% (35.7-47.0); Hemoglobin 10.8 GM/DL (12.0-16.0); Immature Granulocytes Absolute 0.11 #; Lymphocytes # 1.5 10*3/uL (1.4-4.0); Lymphocytes % 13.7 % (21.3-54.2); Mean Corpuscular Volume 84.7 FL (87-102); Mean Platelet Volume 9.7 FL (9.6-12.0); Monocytes % 7.4 % (1.7-12.7); Neutrophils % 77.2 % (38.7-73.9); Platelet Count 227 T/CUMM (130-400); Red Blood Count 4.11 MC/CUMM (3.8-5.5)
[2021-04-09 05:29] LABS: Calcium 8.6 MG/DL (8.5-10.1); Osmolality,Calculated 286.4 MOS/KG (273-304); Potassium 4.4 MMOL/L (3.5-5.1)
[2021-04-09] MEDS: LEVOTHYROXINE 175 MCG TABLET PO SCH (07:06)
[2021-04-09] MEDS: busPIRone 5 MG TABLET PO SCH ×3 (08:22→21:05)
[2021-04-09] MEDS: SERTRALINE 50 MG TABLET PO SCH (08:22)
[2021-04-09] MEDS: predniSONE 50 MG TABLET PO SCH (08:22)
[2021-04-09] MEDS: metFORMIN 500 MG TABLET PO SCH ×2 (08:24→16:47)
[2021-04-09] MEDS: CETIRIZINE 10 MG TABLET PO SCH (08:24)
[2021-04-09] MEDS: LOSARTAN 50 MG TABLET PO SCH (08:24)
[2021-04-09] MEDS: carvediloL 6.25 MG TABLET PO SCH ×2 (08:24→21:05)
[2021-04-09] MEDS: RIVAROXABAN 10 MG TABLET PO SCH (08:24)
[2021-04-09] MEDS: ASCORBIC ACID 500 MG TABLET PO SCH ×2 (08:24→21:05)
[2021-04-09] MEDS: CHOLECALCIFEROL 1,000 UNIT TABLET PO SCH (08:24)
[2021-04-09] MEDS: INSULIN REGULAR 100 UNIT/ML SUBCUT SCH ×4 (08:25→21:05)
[2021-04-09] MEDS: FAMOTIDINE 20 MG TABLET PO SCH ×2 (08:25→21:05)
[2021-04-09] MEDS: ASPIRIN EC 81 MG TABLET PO SCH (08:25)
[2021-04-09] MEDS: ZINC GLUCONATE 50 MG TABLET PO SCH (08:25)
[2021-04-09] MEDS: INSULIN GLARGINE 100 UNIT/ML SUBCUT SCH (08:25)
[2021-04-09] MEDS: amLODIPine 10 MG TABLET PO SCH (08:25)
[2021-04-09] MEDS ORDERED: LORazepam 1 MG TABLET PO PRN (15:23)
[2021-04-09] MEDS: guaiFENesin 200 MG/10 ML UDCUP PO PRN (21:05)
[2021-04-09] MEDS: MELATONIN 3 MG TABLET PO PRN (21:05)
[2021-04-09] MEDS: NAPROXEN 250 MG TABLET PO PRN (21:05)
[2021-04-09] MEDS: SIMVASTATIN 10 MG TABLET PO SCH (21:05)
[2021-04-10] MEDS: ALBUTEROL 2.5 MG/3 ML NEB RESP TX SCH ×4 (00:07→19:21)
[2021-04-10] MEDS: LEVOTHYROXINE 175 MCG TABLET PO SCH (06:26)
[2021-04-10 07:14] LABS: Basophils % 0.1 % (0.0-0.8); Eosinophils # 0.1 10*3/uL (0.0-0.87); Eosinophils % 1.1 % (0.00-10.9); Hematocrit 35.4 VOL% (35.7-47.0); Hemoglobin 11.4 GM/DL (12.0-16.0); Immature Granulocytes Absolute 0.11 #; Lymphocytes # 1.7 10*3/uL (1.4-4.0); Lymphocytes % 14.7 % (21.3-54.2); Mean Corpuscular HGB Conc 32.2 GM/DL (32-36); Mean Corpuscular Volume 84.9 FL (87-102); Mean Platelet Volume 11.1 FL (9.6-12.0); Monocytes % 6.7 % (1.7-12.7); Neutrophils % 76.4 % (38.7-73.9); Red Blood Count 4.17 MC/CUMM (3.8-5.5); Red Cell Distribution Width 15.5 % (9.3-17.3); White Blood Count 11.5 T/CUMM (4-12)
[2021-04-10 07:15] LABS: Platelet Count 146 T/CUMM (130-400)
[2021-04-10 07:23] LABS: Calcium 8.8 MG/DL (8.5-10.1); Osmolality,Calculated 289.3 MOS/KG (273-304); Potassium 4.4 MMOL/L (3.5-5.1)
[2021-04-10] MEDS: INSULIN REGULAR 100 UNIT/ML SUBCUT SCH ×4 (07:40→20:33)
[2021-04-10] MEDS: INSULIN GLARGINE 100 UNIT/ML SUBCUT SCH (08:04)
[2021-04-10] MEDS: metFORMIN 500 MG TABLET PO SCH ×2 (08:04→16:05)
[2021-04-10] MEDS: ASPIRIN EC 81 MG TABLET PO SCH (08:04)
[2021-04-10] MEDS: predniSONE 50 MG TABLET PO SCH (08:05)
[2021-04-10] MEDS: busPIRone 5 MG TABLET PO SCH ×3 (08:05→20:32)
[2021-04-10] MEDS: RIVAROXABAN 10 MG TABLET PO SCH (08:05)
[2021-04-10] MEDS: amLODIPine 10 MG TABLET PO SCH (08:05)
[2021-04-10] MEDS: carvediloL 6.25 MG TABLET PO SCH ×2 (08:05→20:32)
[2021-04-10] MEDS: LOSARTAN 50 MG TABLET PO SCH (08:05)
[2021-04-10] MEDS: SERTRALINE 50 MG TABLET PO SCH (08:05)
[2021-04-10] MEDS: ASCORBIC ACID 500 MG TABLET PO SCH ×2 (08:47→20:32)
[2021-04-10] MEDS: CETIRIZINE 10 MG TABLET PO SCH (08:47)
[2021-04-10] MEDS: ZINC GLUCONATE 50 MG TABLET PO SCH (08:47)
[2021-04-10] MEDS: CHOLECALCIFEROL 1,000 UNIT TABLET PO SCH (08:47)
[2021-04-10] MEDS: FAMOTIDINE 20 MG TABLET PO SCH ×2 (08:47→20:32)
[2021-04-10] MEDS: SIMVASTATIN 10 MG TABLET PO SCH (20:32)
[2021-04-10] MEDS: NAPROXEN 250 MG TABLET PO PRN (20:32)
[2021-04-10] MEDS: MELATONIN 3 MG TABLET PO PRN (20:32)
[2021-04-10] MEDS: guaiFENesin/DM ER 600-30 MG TABLET PO PRN (20:32)
[2021-04-10] MEDS: guaiFENesin 200 MG/10 ML UDCUP PO PRN (20:33)
[2021-04-11] MEDS: ALBUTEROL 2.5 MG/3 ML NEB RESP TX SCH ×4 (00:40→19:42)
[2021-04-11] MEDS: LEVOTHYROXINE 175 MCG TABLET PO SCH (05:32)
[2021-04-11] MEDS: INSULIN REGULAR 100 UNIT/ML SUBCUT SCH ×4 (07:51→20:11)
[2021-04-11] MEDS: metFORMIN 500 MG TABLET PO SCH ×2 (07:59→16:29)
[2021-04-11] MEDS: INSULIN GLARGINE 100 UNIT/ML SUBCUT SCH (07:59)
[2021-04-11] MEDS: SERTRALINE 50 MG TABLET PO SCH (08:58)
[2021-04-11] MEDS: ZINC GLUCONATE 50 MG TABLET PO SCH (08:58)
[2021-04-11] MEDS: busPIRone 5 MG TABLET PO SCH ×3 (08:58→20:06)
[2021-04-11] MEDS: ASPIRIN EC 81 MG TABLET PO SCH (08:58)
[2021-04-11] MEDS: LOSARTAN 50 MG TABLET PO SCH (08:58)
[2021-04-11] MEDS: ASCORBIC ACID 500 MG TABLET PO SCH ×2 (08:59→20:05)
[2021-04-11] MEDS: CETIRIZINE 10 MG TABLET PO SCH (08:59)
[2021-04-11] MEDS: FAMOTIDINE 20 MG TABLET PO SCH ×2 (08:59→20:06)
[2021-04-11] MEDS: amLODIPine 10 MG TABLET PO SCH (10:35)
[2021-04-11] MEDS: carvediloL 6.25 MG TABLET PO SCH ×2 (10:35→20:06)
[2021-04-11] MEDS: CHOLECALCIFEROL 1,000 UNIT TABLET PO SCH (11:04)
[2021-04-11] MEDS: RIVAROXABAN 10 MG TABLET PO SCH (11:04)
[2021-04-11] MEDS: predniSONE 50 MG TABLET PO SCH (11:04)
[2021-04-11] MEDS: NAPROXEN 250 MG TABLET PO PRN (20:05)
[2021-04-11] MEDS: guaiFENesin 200 MG/10 ML UDCUP PO PRN (20:05)
[2021-04-11] MEDS: guaiFENesin/DM ER 600-30 MG TABLET PO PRN (20:05)
[2021-04-11] MEDS: SIMVASTATIN 10 MG TABLET PO SCH (20:06)
[2021-04-11] MEDS: MELATONIN 3 MG TABLET PO PRN (20:06)
[2021-04-12] MEDS: ALBUTEROL 2.5 MG/3 ML NEB RESP TX SCH ×4 (00:42→19:55)
[2021-04-12 05:17] LABS: Eosinophils # 0.1 10*3/uL (0.0-0.87); Eosinophils % 1.4 % (0.00-10.9); Hematocrit 32.5 VOL% (35.7-47.0); Immature Granulocytes % 0.9 %; Immature Granulocytes Absolute 0.08 #; Lymphocytes # 1.2 10*3/uL (1.4-4.0); Mean Corpuscular HGB Conc 30.8 GM/DL (32-36); Mean Corpuscular Volume 87.1 FL (87-102); Mean Platelet Volume 9.6 FL (9.6-12.0); Monocytes % 6.4 % (1.7-12.7); Neutrophils % 78.3 % (38.7-73.9); Platelet Count 164 T/CUMM (130-400); Red Blood Count 3.73 MC/CUMM (3.8-5.5); Red Cell Distribution Width 15.3 % (9.3-17.3); White Blood Count 8.9 T/CUMM (4-12)
[2021-04-12 05:50] LABS: Calcium 8.7 MG/DL (8.5-10.1); Osmolality,Calculated 290.3 MOS/KG (273-304); Potassium 4.8 MMOL/L (3.5-5.1)
[2021-04-12] MEDS: LEVOTHYROXINE 175 MCG TABLET PO SCH (06:07)
[2021-04-12] MEDS: metFORMIN 500 MG TABLET PO SCH ×2 (08:55→17:22)
[2021-04-12] MEDS: ASCORBIC ACID 500 MG TABLET PO SCH ×2 (08:55→21:31)
[2021-04-12] MEDS: ASPIRIN EC 81 MG TABLET PO SCH (08:56)
[2021-04-12] MEDS: CETIRIZINE 10 MG TABLET PO SCH (08:56)
[2021-04-12] MEDS: ZINC GLUCONATE 50 MG TABLET PO SCH (08:56)
[2021-04-12] MEDS: SERTRALINE 50 MG TABLET PO SCH (08:56)
[2021-04-12] MEDS: CHOLECALCIFEROL 1,000 UNIT TABLET PO SCH (08:56)
[2021-04-12] MEDS: amLODIPine 10 MG TABLET PO SCH (08:56)
[2021-04-12] MEDS: busPIRone 5 MG TABLET PO SCH ×3 (08:57→21:31)
[2021-04-12] MEDS: FAMOTIDINE 20 MG TABLET PO SCH ×2 (08:57→21:30)
[2021-04-12] MEDS: LOSARTAN 50 MG TABLET PO SCH (08:57)
[2021-04-12] MEDS: INSULIN REGULAR 100 UNIT/ML SUBCUT SCH ×4 (08:58→21:31)
[2021-04-12] MEDS: RIVAROXABAN 10 MG TABLET PO SCH (08:58)
[2021-04-12] MEDS: carvediloL 6.25 MG TABLET PO SCH ×2 (11:24→21:31)
[2021-04-12] MEDS: INSULIN GLARGINE 100 UNIT/ML SUBCUT SCH (11:25)
[2021-04-12] MEDS: predniSONE 50 MG TABLET PO SCH (11:25)
[2021-04-12] MEDS: FUROSEMIDE 40 MG/4 ML VIAL IV SCH (16:24)
[2021-04-12] MEDS: SIMVASTATIN 10 MG TABLET PO SCH (21:30)
[2021-04-13] MEDS: ALBUTEROL 2.5 MG/3 ML NEB RESP TX SCH ×4 (02:09→19:01)
[2021-04-13] MEDS: ONDANSETRON 4 MG/2 ML VIAL IV PRN (02:57)
[2021-04-13 06:39] LABS: Basophils % 0.1 % (0.0-0.8); Eosinophils # 0.2 10*3/uL (0.0-0.87); Eosinophils % 1.9 % (0.00-10.9); Hematocrit 36.1 VOL% (35.7-47.0); Hemoglobin 11.2 GM/DL (12.0-16.0); Immature Granulocytes % 0.6 %; Immature Granulocytes Absolute 0.08 #; Lymphocytes # 1.9 10*3/uL (1.4-4.0); Lymphocytes % 15.3 % (21.3-54.2); Mean Corpuscular Volume 87.6 FL (87-102); Mean Platelet Volume 10.2 FL (9.6-12.0); Monocytes % 6.6 % (1.7-12.7); Neutrophils % 75.5 % (38.7-73.9); Platelet Count 209 T/CUMM (130-400); Red Blood Count 4.12 MC/CUMM (3.8-5.5); Red Cell Distribution Width 15.5 % (9.3-17.3); White Blood Count 12.7 T/CUMM (4-12)
[2021-04-13] MEDS: LEVOTHYROXINE 175 MCG TABLET PO SCH (06:40)
[2021-04-13 07:06] LABS: Potassium 4.2 MMOL/L (3.5-5.1)
[2021-04-13 07:07] LABS: Osmolality,Calculated 286.3 MOS/KG (273-304)
[2021-04-13] MEDS: INSULIN REGULAR 100 UNIT/ML SUBCUT SCH ×4 (08:51→20:41)
[2021-04-13] MEDS: LOSARTAN 50 MG TABLET PO SCH (09:52)
[2021-04-13] MEDS: metFORMIN 500 MG TABLET PO SCH ×2 (09:53→16:54)
[2021-04-13] MEDS: CHOLECALCIFEROL 1,000 UNIT TABLET PO SCH (09:53)
[2021-04-13] MEDS: carvediloL 6.25 MG TABLET PO SCH ×2 (09:54→20:37)
[2021-04-13] MEDS: ZINC GLUCONATE 50 MG TABLET PO SCH (09:54)
[2021-04-13] MEDS: ASPIRIN EC 81 MG TABLET PO SCH (09:54)
[2021-04-13] MEDS: RIVAROXABAN 10 MG TABLET PO SCH (09:54)
[2021-04-13] MEDS: busPIRone 5 MG TABLET PO SCH ×3 (09:54→20:37)
[2021-04-13] MEDS: SERTRALINE 50 MG TABLET PO SCH (09:54)
[2021-04-13] MEDS: amLODIPine 10 MG TABLET PO SCH (09:55)
[2021-04-13] MEDS: ASCORBIC ACID 500 MG TABLET PO SCH ×2 (09:55→20:37)
[2021-04-13] MEDS: FAMOTIDINE 20 MG TABLET PO SCH ×2 (09:55→20:37)
[2021-04-13] MEDS: INSULIN GLARGINE 100 UNIT/ML SUBCUT SCH (09:56)
[2021-04-13] MEDS: CETIRIZINE 10 MG TABLET PO SCH (09:56)
[2021-04-13] MEDS: FUROSEMIDE 40 MG/4 ML VIAL IV SCH (09:56)
[2021-04-13] MEDS: predniSONE 50 MG TABLET PO SCH (12:06)
[2021-04-13] MEDS: SIMVASTATIN 10 MG TABLET PO SCH (20:38)
[2021-04-13] MEDS ORDERED: INSULIN GLARGINE 100 UNIT/ML SUBCUT SCH (21:00)
[2021-04-14] MEDS: ALBUTEROL 2.5 MG/3 ML NEB RESP TX SCH ×3 (01:03→13:20)
[2021-04-14 05:26] LABS: Basophils % 0.1 % (0.0-0.8); Eosinophils # 0.1 10*3/uL (0.0-0.87); Eosinophils % 1.2 % (0.00-10.9); Hematocrit 33.5 VOL% (35.7-47.0); Hemoglobin 10.2 GM/DL (12.0-16.0); Immature Granulocytes % 0.7 %; Immature Granulocytes Absolute 0.08 #; Lymphocytes # 1.4 10*3/uL (1.4-4.0); Lymphocytes % 13.3 % (21.3-54.2); Mean Corpuscular HGB Conc 30.4 GM/DL (32-36); Mean Corpuscular Volume 87.2 FL (87-102); Mean Platelet Volume 9.7 FL (9.6-12.0); Monocytes % 5.7 % (1.7-12.7); Platelet Count 156 T/CUMM (130-400); Red Blood Count 3.84 MC/CUMM (3.8-5.5); Red Cell Distribution Width 15.5 % (9.3-17.3); White Blood Count 10.8 T/CUMM (4-12)
[2021-04-14 06:04] LABS: Osmolality,Calculated 291.3 MOS/KG (273-304); Potassium 4.6 MMOL/L (3.5-5.1)
[2021-04-14] MEDS: LEVOTHYROXINE 175 MCG TABLET PO SCH (06:29)
[2021-04-14] MEDS: metFORMIN 500 MG TABLET PO SCH ×2 (07:57→16:59)
[2021-04-14] MEDS: INSULIN REGULAR 100 UNIT/ML SUBCUT SCH ×3 (08:45→16:43)
[2021-04-14] MEDS: FUROSEMIDE 40 MG/4 ML VIAL IV SCH (08:56)
[2021-04-14] MEDS: busPIRone 5 MG TABLET PO SCH ×2 (08:57→15:55)
[2021-04-14] MEDS: SERTRALINE 50 MG TABLET PO SCH (08:57)
[2021-04-14] MEDS: CHOLECALCIFEROL 1,000 UNIT TABLET PO SCH (08:57)
[2021-04-14] MEDS: ZINC GLUCONATE 50 MG TABLET PO SCH (08:57)
[2021-04-14] MEDS: ASCORBIC ACID 500 MG TABLET PO SCH (08:58)
[2021-04-14] MEDS: ASPIRIN EC 81 MG TABLET PO SCH (08:58)
[2021-04-14] MEDS: LOSARTAN 50 MG TABLET PO SCH (08:58)
[2021-04-14] MEDS: FAMOTIDINE 20 MG TABLET PO SCH (08:58)
[2021-04-14] MEDS: carvediloL 6.25 MG TABLET PO SCH (08:59)
[2021-04-14] MEDS: amLODIPine 10 MG TABLET PO SCH (08:59)
[2021-04-14] MEDS: CETIRIZINE 10 MG TABLET PO SCH (08:59)
[2021-04-14] MEDS ORDERED: predniSONE 20 MG TABLET PO SCH (09:00)
[2021-04-14] MEDS: RIVAROXABAN 10 MG TABLET PO SCH (10:09)
[2021-04-14 16:12] VITALS: BP 102/35
== END 2021-04-14 19:05 | DRG 177 ==
LOC: N.ED 12:21 → SUATTDRO 15:50 → N.EDINP 15:50 → N.CC 16:25 → N.5E 04-02 17:56
PROVIDERS: ADMIT Internal Medicine; ATTEND Hospitalist

== ENCOUNTER 2021-06-19 13:38 | Inpatient (IN) ==
[2021-06-19 14:09] LABS: Basophils % 0.3 % (0.0-0.8); Eosinophils # 0.1 10*3/uL (0.0-0.87); Eosinophils % 1.8 % (0.00-10.9); Hematocrit 35.2 VOL% (35.7-47.0); Hemoglobin 10.7 GM/DL (12.0-16.0); Immature Granulocytes Absolute 0.08 #; Lymphocytes # 1.9 10*3/uL (1.4-4.0); Lymphocytes % 23.8 % (21.3-54.2); Mean Corpuscular HGB Conc 30.4 GM/DL (32-36); Mean Corpuscular Volume 89.1 FL (87-102); Mean Platelet Volume 9.7 FL (9.6-12.0); Monocytes % 7.1 % (1.7-12.7); Platelet Count 199 T/CUMM (130-400); Red Blood Count 3.95 MC/CUMM (3.8-5.5); Red Cell Distribution Width 17.1 % (9.3-17.3); White Blood Count 7.8 T/CUMM (4-12)
[2021-06-19] MEDS ORDERED: PIPERACILLIN/TAZOBACTAM 3,375 MG in SODIUM CHLORIDE 0.9% 100 ML IV STA ×2 (14:24→15:01)
[2021-06-19 14:31] LABS: ABG Base Excess -2.2 MMOL/L (-2.5-2.5); ABG HCO3 22.5 MMOL/L (20-26); ABG Oxygen Saturation 95.1 % (95-100); ABG PCO2 33.2 MM HG (35-48); ABG PH 7.421 (7.35-7.45); ABG PO2 75.5 MM HG (80-95); ABG TCO2 19.4 MMOL/L (23-27)
[2021-06-19 14:41] LABS: Alanine Aminotransferase 19 U/L (13-56); Albumin 3.1 G/DL (3.4-5.0); Alkaline Phosphatase 84 U/L (45-117); Aspartate Amino Transferase 21 U/L (0-37); Bilirubin,Total < 0.39 MG/DL (0.20-1.00); Blood Urea Nitrogen 19 MG/DL (7-18); Calcium 8.4 MG/DL (8.5-10.1); Carbon Dioxide 25 MMOL/L (21-32); Estimated Glom Filtration Rate 52 ML/MIN; Glucose 244 MG/DL (74-106); Osmolality,Calculated 284.7 MOS/KG (273-304); Potassium 3.5 MMOL/L (3.5-5.1); Sodium 138 MMOL/L (136-145); Total Protein 7.6 G/DL (6.4-8.2)
[2021-06-19 15:27] LABS: INR 1.1; PT Patient Result 12.3 SECS (10.5-12.0)
[2021-06-19] MEDS ORDERED: DEXTROSE 50% 25 GM/50 ML VIAL IV PRN (17:30)
[2021-06-19] MEDS ORDERED: GLUCAGON 1 MG VIAL IM PRN (17:30)
[2021-06-19] MEDS ORDERED: ONDANSETRON 4 MG/2 ML VIAL IV PRN (17:30)
[2021-06-19] MEDS ORDERED: LORazepam 1 MG TABLET PO PRN (17:46)
[2021-06-19 18:09] LABS: Risk Ratio 5.97; Thyroid Stimulating Hormone 0.41 uIU/ml (0.358-3.74); VLDL Cholesterol 70.2 MG/DL
[2021-06-19] MEDS: ENOXAPARIN 40 MG/0.4 ML SYRINGE SUBCUT SCH (18:15)
[2021-06-19] MEDS ORDERED: NAPROXEN 500 MG TABLET PO PRN (18:31)
[2021-06-19] MEDS: LACTATED RINGERS 1,000 ML IV SCH (18:45)
[2021-06-19] MEDS: ALBUTEROL/IPRATROPIUM 3 ML NEB RESP TX SCH (19:40)
[2021-06-19] MEDS ORDERED: BUDESONIDE/FORMOTEROL 160-4.5 INHALER 6 GM INH SCH (21:00)
[2021-06-19] MEDS: SIMVASTATIN 10 MG TABLET PO SCH (21:34)
[2021-06-19] MEDS: BENZONATATE 100 MG CAPSULE PO SCH (21:35)
[2021-06-19] MEDS: FAMOTIDINE 20 MG TABLET PO SCH (21:35)
[2021-06-19] MEDS: MONTELUKAST 10 MG TABLET PO SCH (21:35)
[2021-06-19] MEDS: HydrOXYzine PAMOATE 25 MG CAPSULE PO SCH (21:36)
[2021-06-19] MEDS: carvediloL 6.25 MG TABLET PO SCH (21:36)
[2021-06-19] MEDS: busPIRone 10 MG TABLET PO SCH (21:36)
[2021-06-19] MEDS: INSULIN GLARGINE 100 UNIT/ML SUBCUT SCH (21:38)
[2021-06-19] MEDS: INSULIN LISPRO 100 UNIT/ML SUBCUT SCH (21:39)
[2021-06-19] MEDS ORDERED: INFLUENZA VIRUS VACCINE 0.5 ML SYRINGE IM ONE (23:07)
[2021-06-20] MEDS: ALBUTEROL/IPRATROPIUM 3 ML NEB RESP TX SCH ×4 (00:13→19:00)
[2021-06-20 05:30] LABS: Basophils % 0.5 % (0.0-0.8); Eosinophils # 0.2 10*3/uL (0.0-0.87); Eosinophils % 3.1 % (0.00-10.9); Hematocrit 35.1 VOL% (35.7-47.0); Hemoglobin 10.9 GM/DL (12.0-16.0); Immature Granulocytes % 0.9 %; Immature Granulocytes Absolute 0.05 #; Lymphocytes # 1.7 10*3/uL (1.4-4.0); Lymphocytes % 28.9 % (21.3-54.2); Mean Corpuscular HGB Conc 31.1 GM/DL (32-36); Mean Corpuscular Volume 90.2 FL (87-102); Mean Platelet Volume 9.7 FL (9.6-12.0); Monocytes % 7.5 % (1.7-12.7); Neutrophils % 59.1 % (38.7-73.9); Platelet Count 199 T/CUMM (130-400); Red Blood Count 3.89 MC/CUMM (3.8-5.5); Red Cell Distribution Width 17.4 % (9.3-17.3); White Blood Count 5.8 T/CUMM (4-12)
[2021-06-20 05:43] LABS: Calcium 8.3 MG/DL (8.5-10.1); Potassium 3.5 MMOL/L (3.5-5.1)
[2021-06-20] MEDS: LEVOTHYROXINE 175 MCG TABLET PO SCH (05:44)
[2021-06-20] MEDS: SERTRALINE 50 MG TABLET PO SCH (09:07)
[2021-06-20] MEDS: BENZONATATE 100 MG CAPSULE PO SCH ×2 (09:07→21:18)
[2021-06-20] MEDS: FAMOTIDINE 20 MG TABLET PO SCH ×2 (09:08→21:18)
[2021-06-20] MEDS: busPIRone 10 MG TABLET PO SCH ×3 (09:08→21:17)
[2021-06-20] MEDS: AZITHROMYCIN 250 MG TABLET PO SCH (09:08)
[2021-06-20] MEDS: carvediloL 6.25 MG TABLET PO SCH ×2 (09:08→21:18)
[2021-06-20] MEDS: ASPIRIN EC 81 MG TABLET PO SCH (09:08)
[2021-06-20] MEDS: INSULIN LISPRO 100 UNIT/ML SUBCUT SCH ×4 (09:09→21:16)
[2021-06-20] MEDS ORDERED: MAGNESIUM SULF RIDER 1 GM/100 ML PREMIX IV ONE (12:07)
[2021-06-20] MEDS: methylPREDNISolone SOD SUC 40 MG/1 ML VIAL IV SCH ×2 (12:36→21:16)
[2021-06-20] MEDS: LACTATED RINGERS 1,000 ML IV SCH (15:01)
[2021-06-20] MEDS: ENOXAPARIN 40 MG/0.4 ML SYRINGE SUBCUT SCH (16:42)
[2021-06-20] MEDS: SIMVASTATIN 10 MG TABLET PO SCH (21:17)
[2021-06-20] MEDS: INSULIN GLARGINE 100 UNIT/ML SUBCUT SCH (21:17)
[2021-06-20] MEDS: MONTELUKAST 10 MG TABLET PO SCH (21:18)
[2021-06-20] MEDS: HydrOXYzine PAMOATE 25 MG CAPSULE PO SCH (21:18)
[2021-06-21] MEDS: ALBUTEROL/IPRATROPIUM 3 ML NEB RESP TX SCH ×4 (00:53→19:10)
[2021-06-21] MEDS: methylPREDNISolone SOD SUC 40 MG/1 ML VIAL IV SCH ×2 (06:09→17:40)
[2021-06-21] MEDS: LEVOTHYROXINE 175 MCG TABLET PO SCH (06:11)
[2021-06-21 06:57] LABS: Basophils % 0.1 % (0.0-0.8); Hematocrit 33.3 VOL% (35.7-47.0); Hemoglobin 10.6 GM/DL (12.0-16.0); Immature Granulocytes % 0.8 %; Immature Granulocytes Absolute 0.07 #; Lymphocytes # 1.3 10*3/uL (1.4-4.0); Lymphocytes % 14.3 % (21.3-54.2); Mean Corpuscular HGB Conc 31.8 GM/DL (32-36); Mean Corpuscular Volume 88.8 FL (87-102); Mean Platelet Volume 9.7 FL (9.6-12.0); Monocytes % 2.9 % (1.7-12.7); Neutrophils % 81.9 % (38.7-73.9); Platelet Count 212 T/CUMM (130-400); Red Blood Count 3.75 MC/CUMM (3.8-5.5); Red Cell Distribution Width 16.7 % (9.3-17.3)
[2021-06-21 07:17] LABS: Calcium 8.5 MG/DL (8.5-10.1); Osmolality,Calculated 289.7 MOS/KG (273-304); Potassium 4.1 MMOL/L (3.5-5.1)
[2021-06-21] MEDS: busPIRone 10 MG TABLET PO SCH ×3 (10:15→21:14)
[2021-06-21] MEDS: INSULIN LISPRO 100 UNIT/ML SUBCUT SCH ×4 (10:15→21:15)
[2021-06-21] MEDS: carvediloL 6.25 MG TABLET PO SCH ×2 (10:16→21:15)
[2021-06-21] MEDS: ASPIRIN EC 81 MG TABLET PO SCH (10:16)
[2021-06-21] MEDS: SERTRALINE 50 MG TABLET PO SCH (10:16)
[2021-06-21] MEDS: FAMOTIDINE 20 MG TABLET PO SCH ×2 (10:16→21:15)
[2021-06-21] MEDS: BENZONATATE 100 MG CAPSULE PO SCH ×2 (10:16→21:14)
[2021-06-21] MEDS: AZITHROMYCIN 250 MG TABLET PO SCH (10:16)
[2021-06-21] MEDS: ACETAMINOPHEN 325 MG TABLET PO PRN (18:36)
[2021-06-21] MEDS: SIMVASTATIN 10 MG TABLET PO SCH (21:12)
[2021-06-21] MEDS: HydrOXYzine PAMOATE 25 MG CAPSULE PO SCH (21:15)
[2021-06-21] MEDS: ENOXAPARIN 40 MG/0.4 ML SYRINGE SUBCUT SCH (21:15)
[2021-06-21] MEDS: MONTELUKAST 10 MG TABLET PO SCH (21:15)
[2021-06-21] MEDS: INSULIN GLARGINE 100 UNIT/ML SUBCUT SCH (21:16)
[2021-06-22] MEDS: methylPREDNISolone SOD SUC 40 MG/1 ML VIAL IV SCH ×2 (00:01→16:11)
[2021-06-22] MEDS: ALBUTEROL/IPRATROPIUM 3 ML NEB RESP TX SCH ×4 (01:08→20:53)
[2021-06-22 06:00] LABS: Basophils % 0.1 % (0.0-0.8); Hematocrit 33.5 VOL% (35.7-47.0); Hemoglobin 10.1 GM/DL (12.0-16.0); Immature Granulocytes Absolute 0.11 #; Lymphocytes # 1.3 10*3/uL (1.4-4.0); Lymphocytes % 12.1 % (21.3-54.2); Mean Corpuscular HGB Conc 30.1 GM/DL (32-36); Mean Corpuscular Volume 88.4 FL (87-102); Mean Platelet Volume 10.1 FL (9.6-12.0); Monocytes % 3.3 % (1.7-12.7); Neutrophils % 83.5 % (38.7-73.9); Platelet Count 237 T/CUMM (130-400); Red Blood Count 3.79 MC/CUMM (3.8-5.5); Red Cell Distribution Width 16.8 % (9.3-17.3); White Blood Count 10.8 T/CUMM (4-12)
[2021-06-22] MEDS: LEVOTHYROXINE 175 MCG TABLET PO SCH (06:19)
[2021-06-22 06:34] LABS: Calcium 8.5 MG/DL (8.5-10.1); Osmolality,Calculated 291.8 MOS/KG (273-304); Potassium 4.5 MMOL/L (3.5-5.1)
[2021-06-22] MEDS ORDERED: methylPREDNISolone SOD SUC 40 MG/1 ML VIAL IV SCH ×2 (08:00)
[2021-06-22] MEDS ORDERED: INSULIN GLARGINE 100 UNIT/ML SUBCUT SCH (09:00)
[2021-06-22] MEDS: AZITHROMYCIN 250 MG TABLET PO SCH (09:52)
[2021-06-22] MEDS: amLODIPine 10 MG TABLET PO SCH (09:52)
[2021-06-22] MEDS: ASPIRIN EC 81 MG TABLET PO SCH (09:52)
[2021-06-22] MEDS: carvediloL 6.25 MG TABLET PO SCH ×2 (09:52→20:49)
[2021-06-22] MEDS: busPIRone 10 MG TABLET PO SCH (09:53)
[2021-06-22] MEDS: FAMOTIDINE 20 MG TABLET PO SCH ×2 (09:53→20:49)
[2021-06-22] MEDS: SERTRALINE 50 MG TABLET PO SCH (09:53)
[2021-06-22] MEDS: LOSARTAN 50 MG TABLET PO SCH (09:53)
[2021-06-22] MEDS: BENZONATATE 100 MG CAPSULE PO SCH ×2 (09:54→20:49)
[2021-06-22] MEDS: INSULIN LISPRO 100 UNIT/ML SUBCUT SCH ×7 (09:55→23:21)
[2021-06-22] MEDS: ACETAMINOPHEN 325 MG TABLET PO PRN (16:12)
[2021-06-22] MEDS: MONTELUKAST 10 MG TABLET PO SCH (20:49)
[2021-06-22] MEDS: HydrOXYzine PAMOATE 25 MG CAPSULE PO SCH (20:49)
[2021-06-22] MEDS: INSULIN GLARGINE 100 UNIT/ML SUBCUT SCH (20:59)
[2021-06-22] MEDS: ENOXAPARIN 40 MG/0.4 ML SYRINGE SUBCUT SCH (21:00)
[2021-06-23] MEDS: ALBUTEROL/IPRATROPIUM 3 ML NEB RESP TX SCH ×4 (01:45→19:26)
[2021-06-23] MEDS: methylPREDNISolone SOD SUC 40 MG/1 ML VIAL IV SCH ×2 (03:55→16:29)
[2021-06-23] MEDS: LEVOTHYROXINE 175 MCG TABLET PO SCH (06:16)
[2021-06-23 06:27] LABS: Calcium 8.7 MG/DL (8.5-10.1); Osmolality,Calculated 290.5 MOS/KG (273-304); Potassium 3.9 MMOL/L (3.5-5.1)
[2021-06-23] MEDS: amLODIPine 10 MG TABLET PO SCH (09:08)
[2021-06-23] MEDS: SERTRALINE 50 MG TABLET PO SCH (09:08)
[2021-06-23] MEDS: INSULIN GLARGINE 100 UNIT/ML SUBCUT SCH ×2 (09:08→20:54)
[2021-06-23] MEDS: FAMOTIDINE 20 MG TABLET PO SCH ×2 (09:08→20:52)
[2021-06-23] MEDS: carvediloL 6.25 MG TABLET PO SCH ×2 (09:08→20:52)
[2021-06-23] MEDS: INSULIN LISPRO 100 UNIT/ML SUBCUT SCH ×4 (09:08→20:53)
[2021-06-23] MEDS: LOSARTAN 50 MG TABLET PO SCH (09:08)
[2021-06-23] MEDS: BENZONATATE 100 MG CAPSULE PO SCH ×2 (09:09→20:52)
[2021-06-23] MEDS: ASPIRIN EC 81 MG TABLET PO SCH (09:09)
[2021-06-23] MEDS: MONTELUKAST 10 MG TABLET PO SCH (20:52)
[2021-06-23] MEDS: CETIRIZINE 10 MG TABLET PO PRN (20:53)
[2021-06-23] MEDS: HydrOXYzine PAMOATE 25 MG CAPSULE PO SCH (20:53)
[2021-06-23] MEDS: ACETAMINOPHEN 325 MG TABLET PO PRN (20:53)
[2021-06-23] MEDS: ENOXAPARIN 40 MG/0.4 ML SYRINGE SUBCUT SCH (20:53)
[2021-06-24] MEDS: ALBUTEROL/IPRATROPIUM 3 ML NEB RESP TX SCH ×4 (00:39→18:58)
[2021-06-24] MEDS: methylPREDNISolone SOD SUC 40 MG/1 ML VIAL IV SCH (02:13)
[2021-06-24] MEDS: LEVOTHYROXINE 175 MCG TABLET PO SCH (05:55)
[2021-06-24] MEDS: ACETAMINOPHEN 325 MG TABLET PO PRN ×2 (05:55→20:41)
[2021-06-24 06:22] LABS: Calcium 7.6 MG/DL (8.5-10.1); Potassium 4.3 MMOL/L (3.5-5.1)
[2021-06-24] MEDS: FAMOTIDINE 20 MG TABLET PO SCH ×2 (09:37→20:41)
[2021-06-24] MEDS: carvediloL 6.25 MG TABLET PO SCH ×2 (09:37→20:41)
[2021-06-24] MEDS: amLODIPine 10 MG TABLET PO SCH (09:37)
[2021-06-24] MEDS: BENZONATATE 100 MG CAPSULE PO SCH ×2 (09:38→20:41)
[2021-06-24] MEDS: INSULIN GLARGINE 100 UNIT/ML SUBCUT SCH ×2 (09:38→20:40)
[2021-06-24] MEDS: INSULIN LISPRO 100 UNIT/ML SUBCUT SCH ×4 (09:38→20:40)
[2021-06-24] MEDS: LOSARTAN 50 MG TABLET PO SCH (09:38)
[2021-06-24] MEDS: SERTRALINE 50 MG TABLET PO SCH (09:38)
[2021-06-24] MEDS: ASPIRIN EC 81 MG TABLET PO SCH (09:38)
[2021-06-24] MEDS: MONTELUKAST 10 MG TABLET PO SCH (20:41)
[2021-06-24] MEDS: CETIRIZINE 10 MG TABLET PO PRN (20:41)
[2021-06-24] MEDS: HydrOXYzine PAMOATE 25 MG CAPSULE PO SCH (20:41)
[2021-06-24] MEDS: ENOXAPARIN 40 MG/0.4 ML SYRINGE SUBCUT SCH (20:41)
[2021-06-25] MEDS: ALBUTEROL/IPRATROPIUM 3 ML NEB RESP TX SCH ×4 (01:48→19:05)
[2021-06-25 04:10] LABS: Calcium 8.1 MG/DL (8.5-10.1); Osmolality,Calculated 288.4 MOS/KG (273-304); Potassium 3.9 MMOL/L (3.5-5.1)
[2021-06-25] MEDS: ACETAMINOPHEN 325 MG TABLET PO PRN (05:53)
[2021-06-25] MEDS: LEVOTHYROXINE 175 MCG TABLET PO SCH (05:54)
[2021-06-25] MEDS: ASPIRIN EC 81 MG TABLET PO SCH (10:06)
[2021-06-25] MEDS: INSULIN GLARGINE 100 UNIT/ML SUBCUT SCH ×2 (10:06→21:53)
[2021-06-25] MEDS: INSULIN LISPRO 100 UNIT/ML SUBCUT SCH ×4 (10:06→21:53)
[2021-06-25] MEDS: LOSARTAN 50 MG TABLET PO SCH (10:07)
[2021-06-25] MEDS: BENZONATATE 100 MG CAPSULE PO SCH ×2 (10:08→21:52)
[2021-06-25] MEDS: carvediloL 6.25 MG TABLET PO SCH ×2 (10:08→21:52)
[2021-06-25] MEDS: predniSONE 20 MG TABLET PO SCH (10:08)
[2021-06-25] MEDS: SERTRALINE 50 MG TABLET PO SCH (10:08)
[2021-06-25] MEDS: amLODIPine 10 MG TABLET PO SCH (10:08)
[2021-06-25] MEDS: FAMOTIDINE 20 MG TABLET PO SCH ×2 (10:08→21:52)
[2021-06-25] MEDS: HydrOXYzine PAMOATE 25 MG CAPSULE PO SCH (21:52)
[2021-06-25] MEDS: ENOXAPARIN 40 MG/0.4 ML SYRINGE SUBCUT SCH (21:52)
[2021-06-25] MEDS: MONTELUKAST 10 MG TABLET PO SCH (21:52)
[2021-06-26] MEDS: ALBUTEROL/IPRATROPIUM 3 ML NEB RESP TX SCH ×4 (01:17→20:05)
[2021-06-26 04:48] LABS: Basophils % 0.2 % (0.0-0.8); Eosinophils # 0.1 10*3/uL (0.0-0.87); Eosinophils % 0.8 % (0.00-10.9); Hematocrit 36.5 VOL% (35.7-47.0); Hemoglobin 11.4 GM/DL (12.0-16.0); Immature Granulocytes % 2.7 %; Immature Granulocytes Absolute 0.35 #; Lymphocytes # 2.9 10*3/uL (1.4-4.0); Lymphocytes % 22.2 % (21.3-54.2); Mean Corpuscular HGB Conc 31.2 GM/DL (32-36); Mean Corpuscular Volume 88.6 FL (87-102); Mean Platelet Volume 9.7 FL (9.6-12.0); Monocytes % 8.6 % (1.7-12.7); Neutrophils % 65.5 % (38.7-73.9); Platelet Count 275 T/CUMM (130-400); Red Blood Count 4.12 MC/CUMM (3.8-5.5); Red Cell Distribution Width 16.2 % (9.3-17.3); White Blood Count 12.9 T/CUMM (4-12)
[2021-06-26 05:14] LABS: Calcium 8.6 MG/DL (8.5-10.1); Osmolality,Calculated 284.4 MOS/KG (273-304); Potassium 3.7 MMOL/L (3.5-5.1)
[2021-06-26] MEDS: LEVOTHYROXINE 175 MCG TABLET PO SCH (06:35)
[2021-06-26] MEDS: SERTRALINE 50 MG TABLET PO SCH (09:15)
[2021-06-26] MEDS: predniSONE 20 MG TABLET PO SCH (09:15)
[2021-06-26] MEDS: ASPIRIN EC 81 MG TABLET PO SCH (09:15)
[2021-06-26] MEDS: amLODIPine 10 MG TABLET PO SCH (09:16)
[2021-06-26] MEDS: BENZONATATE 100 MG CAPSULE PO SCH ×2 (09:16→21:39)
[2021-06-26] MEDS: FAMOTIDINE 20 MG TABLET PO SCH ×2 (09:16→21:38)
[2021-06-26] MEDS: carvediloL 6.25 MG TABLET PO SCH ×2 (09:16→21:39)
[2021-06-26] MEDS: INSULIN GLARGINE 100 UNIT/ML SUBCUT SCH ×2 (09:16→21:39)
[2021-06-26] MEDS: LOSARTAN 50 MG TABLET PO SCH (09:16)
[2021-06-26] MEDS: INSULIN LISPRO 100 UNIT/ML SUBCUT SCH ×4 (10:59→21:39)
[2021-06-26] MEDS: ACETAMINOPHEN 325 MG TABLET PO PRN (14:14)
[2021-06-26] MEDS: HydrOXYzine PAMOATE 25 MG CAPSULE PO SCH (21:38)
[2021-06-26] MEDS: MONTELUKAST 10 MG TABLET PO SCH (21:39)
[2021-06-26] MEDS: ENOXAPARIN 40 MG/0.4 ML SYRINGE SUBCUT SCH (21:41)
[2021-06-27] MEDS: ALBUTEROL/IPRATROPIUM 3 ML NEB RESP TX SCH ×4 (01:38→19:25)
[2021-06-27 04:59] LABS: Basophils % 0.1 % (0.0-0.8); Eosinophils # 0.1 10*3/uL (0.0-0.87); Eosinophils % 0.5 % (0.00-10.9); Hemoglobin 10.3 GM/DL (12.0-16.0); Immature Granulocytes % 1.8 %; Lymphocytes # 2.7 10*3/uL (1.4-4.0); Lymphocytes % 24.1 % (21.3-54.2); Mean Corpuscular HGB Conc 30.3 GM/DL (32-36); Mean Corpuscular Volume 88.1 FL (87-102); Monocytes % 8.2 % (1.7-12.7); Neutrophils % 65.3 % (38.7-73.9); Platelet Count 261 T/CUMM (130-400); Red Blood Count 3.86 MC/CUMM (3.8-5.5); Red Cell Distribution Width 16.2 % (9.3-17.3); White Blood Count 11.1 T/CUMM (4-12)
[2021-06-27] MEDS: LEVOTHYROXINE 175 MCG TABLET PO SCH (06:16)
[2021-06-27] MEDS: amLODIPine 10 MG TABLET PO SCH (09:26)
[2021-06-27] MEDS: FAMOTIDINE 20 MG TABLET PO SCH ×2 (09:26→22:53)
[2021-06-27] MEDS: ASPIRIN EC 81 MG TABLET PO SCH (09:26)
[2021-06-27] MEDS: INSULIN GLARGINE 100 UNIT/ML SUBCUT SCH ×2 (09:26→22:48)
[2021-06-27] MEDS: SERTRALINE 50 MG TABLET PO SCH (09:26)
[2021-06-27] MEDS: BENZONATATE 100 MG CAPSULE PO SCH ×2 (09:26→22:49)
[2021-06-27] MEDS: LOSARTAN 50 MG TABLET PO SCH (09:26)
[2021-06-27] MEDS: carvediloL 6.25 MG TABLET PO SCH ×2 (09:26→22:50)
[2021-06-27] MEDS: INSULIN LISPRO 100 UNIT/ML SUBCUT SCH ×4 (09:27→22:49)
[2021-06-27] MEDS: predniSONE 20 MG TABLET PO SCH (10:32)
[2021-06-27] MEDS: ENOXAPARIN 40 MG/0.4 ML SYRINGE SUBCUT SCH (22:48)
[2021-06-27] MEDS: MONTELUKAST 10 MG TABLET PO SCH (22:50)
[2021-06-27] MEDS: HydrOXYzine PAMOATE 25 MG CAPSULE PO SCH (22:50)
[2021-06-28] MEDS: ALBUTEROL/IPRATROPIUM 3 ML NEB RESP TX SCH ×2 (01:43→07:20)
[2021-06-28] MEDS: LEVOTHYROXINE 175 MCG TABLET PO SCH (05:49)
[2021-06-28] MEDS: SERTRALINE 50 MG TABLET PO SCH (08:22)
[2021-06-28] MEDS: predniSONE 20 MG TABLET PO SCH (08:22)
[2021-06-28] MEDS: BENZONATATE 100 MG CAPSULE PO SCH (08:22)
[2021-06-28] MEDS: FAMOTIDINE 20 MG TABLET PO SCH (08:22)
[2021-06-28] MEDS: ASPIRIN EC 81 MG TABLET PO SCH (08:23)
[2021-06-28] MEDS: INSULIN LISPRO 100 UNIT/ML SUBCUT SCH ×2 (08:23→11:55)
[2021-06-28] MEDS: carvediloL 6.25 MG TABLET PO SCH (08:24)
[2021-06-28] MEDS: LOSARTAN 50 MG TABLET PO SCH (10:15)
[2021-06-28] MEDS: amLODIPine 10 MG TABLET PO SCH (10:16)
[2021-06-28] MEDS: INSULIN GLARGINE 100 UNIT/ML SUBCUT SCH (10:30)
[2021-06-28 11:38] VITALS: BP 114/53
== END 2021-06-28 13:30 | disposition home health service (06) | DRG 193 ==
LOC: EDBD → EDUNIT# → N.ED 13:38 → N.EDINP 13:38 → SUATTDRO 16:58 → N.5E 19:48 → SUATTDRO 06-21 14:57
PROVIDERS: ADMIT Internal Medicine; ATTEND Internal Medicine

== ENCOUNTER 2021-07-29 08:54 | Inpatient (IN) ==
[2021-07-29] MEDS ORDERED: FUROSEMIDE 100 MG/10 ML VIAL IV STA (09:20)
[2021-07-29 09:37] LABS: Basophils % 0.1 % (0.0-0.8); Eosinophils # 0.1 10*3/uL (0.0-0.87); Eosinophils % 0.7 % (0.00-10.9); Hematocrit 33.8 VOL% (35.7-47.0); Hemoglobin 10.4 GM/DL (12.0-16.0); Immature Granulocytes % 0.6 %; Immature Granulocytes Absolute 0.08 #; Lymphocytes # 2.1 10*3/uL (1.4-4.0); Lymphocytes % 15.7 % (21.3-54.2); Mean Corpuscular HGB Conc 30.8 GM/DL (32-36); Mean Corpuscular Volume 83.7 FL (87-102); Mean Platelet Volume 9.5 FL (9.6-12.0); Monocytes % 6.8 % (1.7-12.7); Neutrophils % 76.1 % (38.7-73.9); Platelet Count 222 T/CUMM (130-400); Red Blood Count 4.04 MC/CUMM (3.8-5.5); Red Cell Distribution Width 14.7 % (9.3-17.3); White Blood Count 13.4 T/CUMM (4-12)
[2021-07-29 09:55] LABS: PT Patient Result 11.4 SECS (10.5-12.0)
[2021-07-29 09:57] LABS: Alanine Aminotransferase 13 U/L (13-56); Albumin 2.6 G/DL (3.4-5.0); Alkaline Phosphatase 72 U/L (45-117); Aspartate Amino Transferase 23 U/L (0-37); Bilirubin,Total < 0.39 MG/DL (0.20-1.00); Blood Urea Nitrogen 12 MG/DL (7-18); Calcium 9.2 MG/DL (8.5-10.1); Carbon Dioxide 26 MMOL/L (21-32); Estimated Glom Filtration Rate 67 ML/MIN; Glucose 200 MG/DL (74-106); Osmolality,Calculated 282.5 MOS/KG (273-304); Potassium 4.1 MMOL/L (3.5-5.1); Sodium 139 MMOL/L (136-145); Total Protein 8.9 G/DL (6.4-8.2)
[2021-07-29] MEDS ORDERED: DEXTROSE 50% 25 GM/50 ML VIAL IV PRN (10:46)
[2021-07-29] MEDS ORDERED: GLUCAGON 1 MG VIAL IM PRN (10:46)
[2021-07-29] MEDS ORDERED: PIPERACILLIN/TAZOBACTAM 3,375 MG in SODIUM CHLORIDE 0.9% 100 ML IV STA (10:46)
[2021-07-29] MEDS ORDERED: methylPREDNISolone SOD SUC 125 MG/2 ML VIAL IV STA (11:02)
[2021-07-29] MEDS: ENOXAPARIN 40 MG/0.4 ML SYRINGE SUBCUT SCH (13:11)
[2021-07-29] MEDS: ALBUTEROL/IPRATROPIUM 3 ML NEB RESP TX SCH ×2 (13:55→20:00)
[2021-07-29] MEDS: INSULIN LISPRO 100 UNIT/ML SUBCUT SCH ×3 (14:30→20:41)
[2021-07-29] MEDS: SODIUM CHLORIDE 0.9% 1,000 ML IV SCH (14:30)
[2021-07-29] MEDS ORDERED: VANCOMYCIN INJ 1,500 MG in SODIUM CHLORIDE 0.9% 500 ML IV SCH (18:00)
[2021-07-29] MEDS: methylPREDNISolone SOD SUC 40 MG/1 ML VIAL IV SCH (20:39)
[2021-07-29] MEDS: FAMOTIDINE 20 MG TABLET PO SCH (20:42)
[2021-07-30] MEDS: ALBUTEROL/IPRATROPIUM 3 ML NEB RESP TX SCH ×4 (01:30→19:30)
[2021-07-30] MEDS: guaiFENesin 200 MG/10 ML UDCUP PO PRN (01:57)
[2021-07-30] MEDS: MELATONIN 3 MG TABLET PO PRN (01:59)
[2021-07-30] MEDS: SODIUM CHLORIDE 0.9% 1,000 ML IV SCH ×2 (05:00→14:31)
[2021-07-30] MEDS: methylPREDNISolone SOD SUC 40 MG/1 ML VIAL IV SCH ×3 (05:01→23:57)
[2021-07-30] MEDS: LEVOTHYROXINE 175 MCG TABLET PO SCH (06:08)
[2021-07-30 06:46] LABS: Hematocrit 31.3 VOL% (35.7-47.0); Hemoglobin 9.6 GM/DL (12.0-16.0); Immature Granulocytes % 0.4 %; Immature Granulocytes Absolute 0.03 #; Lymphocytes % 11.9 % (21.3-54.2); Mean Corpuscular HGB Conc 30.7 GM/DL (32-36); Mean Corpuscular Volume 84.6 FL (87-102); Mean Platelet Volume 9.8 FL (9.6-12.0); Monocytes % 2.5 % (1.7-12.7); Neutrophils % 85.2 % (38.7-73.9); Platelet Count 205 T/CUMM (130-400); Red Cell Distribution Width 14.5 % (9.3-17.3); White Blood Count 8.3 T/CUMM (4-12)
[2021-07-30 07:11] LABS: Calcium 8.7 MG/DL (8.5-10.1); Osmolality,Calculated 283.1 MOS/KG (273-304); Potassium 3.8 MMOL/L (3.5-5.1)
[2021-07-30] MEDS: CHOLECALCIFEROL 1,000 UNIT TABLET PO SCH (09:31)
[2021-07-30] MEDS: ASPIRIN EC 81 MG TABLET PO SCH (09:31)
[2021-07-30] MEDS: FAMOTIDINE 20 MG TABLET PO SCH ×2 (09:31→23:55)
[2021-07-30] MEDS: SERTRALINE 50 MG TABLET PO SCH (09:31)
[2021-07-30] MEDS: OSELTAMIVIR 75 MG CAPSULE PO SCH ×2 (09:31→23:56)
[2021-07-30] MEDS: INSULIN LISPRO 100 UNIT/ML SUBCUT SCH ×4 (09:31→23:54)
[2021-07-30] MEDS: ACETAMINOPHEN 325 MG TABLET PO PRN (10:21)
[2021-07-30 12:06] LABS: % Iron Saturation 13.3 % (18-50); Ferritin 262.9 ng/mL (8-252)
[2021-07-30 12:08] LABS: Folate 8.19 NG/ML (5.38-24.0)
[2021-07-30] MEDS: BENZONATATE 100 MG CAPSULE PO SCH ×2 (13:31→23:57)
[2021-07-30] MEDS: HydrOXYzine PAMOATE 25 MG CAPSULE PO SCH ×2 (16:29→23:57)
[2021-07-30] MEDS: diphenhydrAMINE CAP 25 MG CAPSULE PO PRN ×2 (18:30→23:56)
[2021-07-30] MEDS: ENOXAPARIN 40 MG/0.4 ML SYRINGE SUBCUT SCH (23:53)
[2021-07-31] MEDS: guaiFENesin 200 MG/10 ML UDCUP PO PRN (00:01)
[2021-07-31] MEDS: MELATONIN 3 MG TABLET PO PRN ×2 (00:07→21:07)
[2021-07-31] MEDS: ALBUTEROL/IPRATROPIUM 3 ML NEB RESP TX SCH ×4 (00:21→20:11)
[2021-07-31 05:50] LABS: Basophils % 0.1 % (0.0-0.8); Hemoglobin 10.2 GM/DL (12.0-16.0); Immature Granulocytes % 0.7 %; Immature Granulocytes Absolute 0.09 #; Lymphocytes % 7.5 % (21.3-54.2); Mean Corpuscular HGB Conc 31.9 GM/DL (32-36); Mean Corpuscular Volume 84.7 FL (87-102); Mean Platelet Volume 10.6 FL (9.6-12.0); Monocytes % 4.4 % (1.7-12.7); Neutrophils % 87.3 % (38.7-73.9); Platelet Count 254 T/CUMM (130-400); Red Blood Count 3.78 MC/CUMM (3.8-5.5); Red Cell Distribution Width 14.6 % (9.3-17.3); White Blood Count 13.3 T/CUMM (4-12)
[2021-07-31] MEDS: methylPREDNISolone SOD SUC 40 MG/1 ML VIAL IV SCH ×3 (05:50→21:11)
[2021-07-31] MEDS: LEVOTHYROXINE 175 MCG TABLET PO SCH (06:00)
[2021-07-31 06:06] LABS: Calcium 8.7 MG/DL (8.5-10.1); Potassium 4.1 MMOL/L (3.5-5.1)
[2021-07-31] MEDS: CHOLECALCIFEROL 1,000 UNIT TABLET PO SCH (08:31)
[2021-07-31] MEDS: SERTRALINE 50 MG TABLET PO SCH (08:31)
[2021-07-31] MEDS: HydrOXYzine PAMOATE 25 MG CAPSULE PO SCH ×3 (08:31→21:06)
[2021-07-31] MEDS: BENZONATATE 100 MG CAPSULE PO SCH ×2 (08:32→21:06)
[2021-07-31] MEDS: ASPIRIN EC 81 MG TABLET PO SCH (08:32)
[2021-07-31] MEDS: OSELTAMIVIR 75 MG CAPSULE PO SCH ×2 (08:32→21:06)
[2021-07-31] MEDS: amLODIPine 10 MG TABLET PO SCH (08:32)
[2021-07-31] MEDS: FAMOTIDINE 20 MG TABLET PO SCH ×2 (08:32→21:06)
[2021-07-31] MEDS: INSULIN LISPRO 100 UNIT/ML SUBCUT SCH ×4 (08:32→21:08)
[2021-07-31] MEDS ORDERED: KETOROLAC 30 MG/1 ML VIAL IV ONE (14:00)
[2021-07-31] MEDS: ENOXAPARIN 40 MG/0.4 ML SYRINGE SUBCUT SCH (21:07)
[2021-07-31 21:21] LABS: CDT Result Negative (Negative); CDT Specimen Source STOOL
[2021-08-01] MEDS: ALBUTEROL/IPRATROPIUM 3 ML NEB RESP TX SCH ×4 (00:46→19:12)
[2021-08-01] MEDS: LEVOTHYROXINE 175 MCG TABLET PO SCH (05:36)
[2021-08-01] MEDS: methylPREDNISolone SOD SUC 40 MG/1 ML VIAL IV SCH ×3 (05:37→21:23)
[2021-08-01] MEDS: FAMOTIDINE 20 MG TABLET PO SCH ×2 (08:35→21:19)
[2021-08-01] MEDS: ASPIRIN EC 81 MG TABLET PO SCH (08:35)
[2021-08-01] MEDS: SERTRALINE 50 MG TABLET PO SCH (08:35)
[2021-08-01] MEDS: INSULIN LISPRO 100 UNIT/ML SUBCUT SCH ×4 (08:35→21:19)
[2021-08-01] MEDS: amLODIPine 10 MG TABLET PO SCH (08:35)
[2021-08-01] MEDS: BENZONATATE 100 MG CAPSULE PO SCH ×2 (08:35→21:20)
[2021-08-01] MEDS: HydrOXYzine PAMOATE 25 MG CAPSULE PO SCH ×3 (08:35→21:19)
[2021-08-01] MEDS: OSELTAMIVIR 75 MG CAPSULE PO SCH ×2 (08:35→21:20)
[2021-08-01] MEDS: CHOLECALCIFEROL 1,000 UNIT TABLET PO SCH (08:35)
[2021-08-01] MEDS: ENOXAPARIN 40 MG/0.4 ML SYRINGE SUBCUT SCH (21:19)
[2021-08-01] MEDS: MELATONIN 3 MG TABLET PO PRN (21:19)
[2021-08-02] MEDS: ALBUTEROL/IPRATROPIUM 3 ML NEB RESP TX SCH ×4 (00:30→20:50)
[2021-08-02] MEDS: methylPREDNISolone SOD SUC 40 MG/1 ML VIAL IV SCH ×3 (05:30→20:47)
[2021-08-02] MEDS: LEVOTHYROXINE 175 MCG TABLET PO SCH (05:30)
[2021-08-02] MEDS: INSULIN LISPRO 100 UNIT/ML SUBCUT SCH ×4 (08:51→21:05)
[2021-08-02] MEDS: BENZONATATE 100 MG CAPSULE PO SCH ×2 (09:18→20:48)
[2021-08-02] MEDS: amLODIPine 10 MG TABLET PO SCH (09:18)
[2021-08-02] MEDS: OSELTAMIVIR 75 MG CAPSULE PO SCH ×2 (09:18→20:48)
[2021-08-02] MEDS: FAMOTIDINE 20 MG TABLET PO SCH ×2 (09:18→20:47)
[2021-08-02] MEDS: ASPIRIN EC 81 MG TABLET PO SCH (09:18)
[2021-08-02] MEDS: CHOLECALCIFEROL 1,000 UNIT TABLET PO SCH (09:18)
[2021-08-02] MEDS: HydrOXYzine PAMOATE 25 MG CAPSULE PO SCH ×3 (09:18→20:48)
[2021-08-02] MEDS: SERTRALINE 50 MG TABLET PO SCH (09:19)
[2021-08-02] MEDS: INSULIN GLARGINE 100 UNIT/ML SUBCUT SCH (11:35)
[2021-08-02 12:09] LABS: Basophils % 0.1 % (0.0-0.8); Hematocrit 31.1 VOL% (35.7-47.0); Immature Granulocytes % 1.5 %; Immature Granulocytes Absolute 0.17 #; Lymphocytes # 1.1 10*3/uL (1.4-4.0); Lymphocytes % 9.2 % (21.3-54.2); Mean Corpuscular HGB Conc 32.2 GM/DL (32-36); Mean Corpuscular Volume 83.8 FL (87-102); Mean Platelet Volume 10.1 FL (9.6-12.0); Monocytes % 4.6 % (1.7-12.7); NRBC # 0.02 10*3/uL; Neutrophils % 84.6 % (38.7-73.9); Platelet Count 310 T/CUMM (130-400); Red Blood Count 3.71 MC/CUMM (3.8-5.5); White Blood Count 11.4 T/CUMM (4-12)
[2021-08-02 12:21] LABS: Alanine Aminotransferase 15 U/L (13-56); Albumin 2.5 G/DL (3.4-5.0); Alkaline Phosphatase 90 U/L (45-117); Aspartate Amino Transferase 11 U/L (0-37); Bilirubin,Total < 0.39 MG/DL (0.20-1.00); Blood Urea Nitrogen 37 MG/DL (7-18); Calcium 8.9 MG/DL (8.5-10.1); Carbon Dioxide 25 MMOL/L (21-32); Estimated Glom Filtration Rate 67 ML/MIN; Glucose 374 MG/DL (74-106); Osmolality,Calculated 289.4 MOS/KG (273-304); Potassium 4.2 MMOL/L (3.5-5.1); Sodium 133 MMOL/L (136-145); Total Protein 7.9 G/DL (6.4-8.2)
[2021-08-02] MEDS: ENOXAPARIN 40 MG/0.4 ML SYRINGE SUBCUT SCH (20:46)
[2021-08-03] MEDS: ALBUTEROL/IPRATROPIUM 3 ML NEB RESP TX SCH ×4 (00:55→20:38)
[2021-08-03 05:47] LABS: Basophils % 0.2 % (0.0-0.8); Hematocrit 32.9 VOL% (35.7-47.0); Hemoglobin 10.8 GM/DL (12.0-16.0); Immature Granulocytes % 1.6 %; Immature Granulocytes Absolute 0.21 #; Lymphocytes # 2.2 10*3/uL (1.4-4.0); Lymphocytes % 17.1 % (21.3-54.2); Mean Corpuscular HGB Conc 32.8 GM/DL (32-36); Mean Corpuscular Volume 86.4 FL (87-102); Mean Platelet Volume 9.6 FL (9.6-12.0); Monocytes % 7.2 % (1.7-12.7); Neutrophils % 73.9 % (38.7-73.9); Platelet Count 324 T/CUMM (130-400); Red Blood Count 3.81 MC/CUMM (3.8-5.5); Red Cell Distribution Width 15.1 % (9.3-17.3); White Blood Count 12.9 T/CUMM (4-12)
[2021-08-03 06:02] LABS: Calcium 8.7 MG/DL (8.5-10.1); Osmolality,Calculated 287.8 MOS/KG (273-304); Potassium 4.5 MMOL/L (3.5-5.1)
[2021-08-03 06:03] LABS: Albumin 2.5 G/DL (3.4-5.0); Bilirubin,Total 0.5 MG/DL (0.20-1.00); Calcium 8.8 MG/DL (8.5-10.1); Osmolality,Calculated 288.8 MOS/KG (273-304); Potassium 4.4 MMOL/L (3.5-5.1); Total Protein 7.7 G/DL (6.4-8.2)
[2021-08-03] MEDS: methylPREDNISolone SOD SUC 40 MG/1 ML VIAL IV SCH ×3 (06:13→22:35)
[2021-08-03] MEDS: LEVOTHYROXINE 175 MCG TABLET PO SCH (06:14)
[2021-08-03] MEDS: ACETAMINOPHEN 325 MG TABLET PO PRN (07:48)
[2021-08-03] MEDS: INSULIN LISPRO 100 UNIT/ML SUBCUT SCH ×4 (07:49→21:02)
[2021-08-03] MEDS: HydrOXYzine PAMOATE 25 MG CAPSULE PO SCH ×3 (08:38→21:02)
[2021-08-03] MEDS: FAMOTIDINE 20 MG TABLET PO SCH ×2 (08:39→21:02)
[2021-08-03] MEDS: IRON (CARBONYL) 45 MG TABLET PO SCH (08:39)
[2021-08-03] MEDS: amLODIPine 10 MG TABLET PO SCH (08:39)
[2021-08-03] MEDS: OSELTAMIVIR 75 MG CAPSULE PO SCH ×2 (08:40→21:03)
[2021-08-03] MEDS: ASPIRIN EC 81 MG TABLET PO SCH (08:40)
[2021-08-03] MEDS: SERTRALINE 50 MG TABLET PO SCH (08:40)
[2021-08-03] MEDS: CHOLECALCIFEROL 1,000 UNIT TABLET PO SCH (08:40)
[2021-08-03] MEDS: BENZONATATE 100 MG CAPSULE PO SCH ×2 (08:40→21:02)
[2021-08-03] MEDS: INSULIN GLARGINE 100 UNIT/ML SUBCUT SCH (08:42)
[2021-08-03 11:58] LABS: Free T4 (Free Thyroxine) 1.19 NG/DL (0.76-1.46)
[2021-08-03] MEDS ORDERED: INSULIN GLARGINE 100 UNIT/ML SUBCUT SCH ×2 (12:00→21:00)
[2021-08-03] MEDS ORDERED: INSULIN GLARGINE 100 UNIT/ML SUBCUT ONE ×2 (12:00→17:00)
[2021-08-03] MEDS: ENOXAPARIN 40 MG/0.4 ML SYRINGE SUBCUT SCH (21:01)
[2021-08-03] MEDS: MELATONIN 3 MG TABLET PO PRN (21:03)
[2021-08-04] MEDS: ALBUTEROL/IPRATROPIUM 3 ML NEB RESP TX SCH ×4 (00:15→19:11)
[2021-08-04 04:46] LABS: Basophils % 0.2 % (0.0-0.8); Hematocrit 35.1 VOL% (35.7-47.0); Hemoglobin 10.8 GM/DL (12.0-16.0); Immature Granulocytes Absolute 0.34 #; Lymphocytes # 1.6 10*3/uL (1.4-4.0); Lymphocytes % 13.9 % (21.3-54.2); Mean Corpuscular HGB Conc 30.8 GM/DL (32-36); Mean Corpuscular Volume 83.4 FL (87-102); Monocytes % 4.4 % (1.7-12.7); Neutrophils % 78.5 % (38.7-73.9); Platelet Count 334 T/CUMM (130-400); Red Blood Count 4.21 MC/CUMM (3.8-5.5); Red Cell Distribution Width 14.9 % (9.3-17.3); White Blood Count 11.5 T/CUMM (4-12)
[2021-08-04 05:17] LABS: Osmolality,Calculated 285.2 MOS/KG (273-304); Potassium 4.7 MMOL/L (3.5-5.1)
[2021-08-04] MEDS: LEVOTHYROXINE 100 MCG TABLET PO SCH (05:54)
[2021-08-04] MEDS: INSULIN GLARGINE 100 UNIT/ML SUBCUT SCH (09:49)
[2021-08-04] MEDS: INSULIN LISPRO 100 UNIT/ML SUBCUT SCH ×4 (09:50→21:35)
[2021-08-04] MEDS: sitaGLIPtin 25 MG TABLET PO SCH (09:51)
[2021-08-04] MEDS: IRON (CARBONYL) 45 MG TABLET PO SCH (09:51)
[2021-08-04] MEDS: CHOLECALCIFEROL 1,000 UNIT TABLET PO SCH (09:51)
[2021-08-04] MEDS: methylPREDNISolone SOD SUC 40 MG/1 ML VIAL IV SCH ×2 (09:51→21:35)
[2021-08-04] MEDS: amLODIPine 10 MG TABLET PO SCH (09:52)
[2021-08-04] MEDS: FAMOTIDINE 20 MG TABLET PO SCH ×2 (09:52→21:36)
[2021-08-04] MEDS: SERTRALINE 50 MG TABLET PO SCH (09:52)
[2021-08-04] MEDS: HydrOXYzine PAMOATE 25 MG CAPSULE PO SCH ×3 (09:52→21:36)
[2021-08-04] MEDS: BENZONATATE 100 MG CAPSULE PO SCH ×2 (09:52→21:36)
[2021-08-04] MEDS: ASPIRIN EC 81 MG TABLET PO SCH (10:00)
[2021-08-04] MEDS: ACETAMINOPHEN 325 MG TABLET PO PRN (12:41)
[2021-08-04] MEDS: cefTRIAXone 1,000 MG in SODIUM CHLORIDE 0.9% 100 ML IV SCH (17:02)
[2021-08-04] MEDS: DOXYCYCLINE HYCLATE 100 MG CAPSULE PO SCH (21:35)
[2021-08-04] MEDS: ENOXAPARIN 40 MG/0.4 ML SYRINGE SUBCUT SCH (21:35)
[2021-08-04] MEDS: MELATONIN 3 MG TABLET PO PRN (21:45)
[2021-08-05] MEDS: ALBUTEROL/IPRATROPIUM 3 ML NEB RESP TX SCH ×4 (01:26→19:50)
[2021-08-05 05:10] LABS: Basophils % 0.2 % (0.0-0.8); Hematocrit 34.7 VOL% (35.7-47.0); Hemoglobin 10.8 GM/DL (12.0-16.0); Immature Granulocytes % 2.2 %; Immature Granulocytes Absolute 0.28 #; Lymphocytes % 8.1 % (21.3-54.2); Mean Corpuscular HGB Conc 31.1 GM/DL (32-36); Mean Corpuscular Volume 83.6 FL (87-102); Mean Platelet Volume 9.2 FL (9.6-12.0); Monocytes % 3.4 % (1.7-12.7); Neutrophils % 86.1 % (38.7-73.9); Platelet Count 353 T/CUMM (130-400); Red Blood Count 4.15 MC/CUMM (3.8-5.5); Red Cell Distribution Width 15.2 % (9.3-17.3); White Blood Count 12.7 T/CUMM (4-12)
[2021-08-05 05:39] LABS: Calcium 9.1 MG/DL (8.5-10.1); Osmolality,Calculated 295.2 MOS/KG (273-304); Potassium 5.2 MMOL/L (3.5-5.1)
[2021-08-05] MEDS: LEVOTHYROXINE 100 MCG TABLET PO SCH (05:56)
[2021-08-05] MEDS: INSULIN LISPRO 100 UNIT/ML SUBCUT SCH ×4 (09:49→21:56)
[2021-08-05] MEDS: INSULIN GLARGINE 100 UNIT/ML SUBCUT SCH (09:49)
[2021-08-05] MEDS: amLODIPine 10 MG TABLET PO SCH (09:50)
[2021-08-05] MEDS: sitaGLIPtin 25 MG TABLET PO SCH (09:50)
[2021-08-05] MEDS: CHOLECALCIFEROL 1,000 UNIT TABLET PO SCH (09:50)
[2021-08-05] MEDS: FAMOTIDINE 20 MG TABLET PO SCH ×2 (09:50→21:57)
[2021-08-05] MEDS: SERTRALINE 50 MG TABLET PO SCH (09:51)
[2021-08-05] MEDS: ASPIRIN EC 81 MG TABLET PO SCH (09:51)
[2021-08-05] MEDS: HydrOXYzine PAMOATE 25 MG CAPSULE PO SCH ×3 (09:51→21:57)
[2021-08-05] MEDS: DOXYCYCLINE HYCLATE 100 MG CAPSULE PO SCH ×2 (09:51→21:57)
[2021-08-05] MEDS: BENZONATATE 100 MG CAPSULE PO SCH ×2 (09:51→21:58)
[2021-08-05] MEDS: IRON (CARBONYL) 45 MG TABLET PO SCH (09:51)
[2021-08-05] MEDS: methylPREDNISolone SOD SUC 40 MG/1 ML VIAL IV SCH (09:51)
[2021-08-05] MEDS ORDERED: SODIUM POLYSTYRENE SULFATE 15 GM/60 ML BOTTLE PO STA (11:21)
[2021-08-05] MEDS: cefTRIAXone 1,000 MG in SODIUM CHLORIDE 0.9% 100 ML IV SCH (15:48)
[2021-08-05] MEDS: MELATONIN 3 MG TABLET PO PRN (21:57)
[2021-08-05] MEDS: ENOXAPARIN 40 MG/0.4 ML SYRINGE SUBCUT SCH (21:58)
[2021-08-05] MEDS: ACETAMINOPHEN 325 MG TABLET PO PRN (21:58)
[2021-08-05] MEDS: guaiFENesin 200 MG/10 ML UDCUP PO PRN (21:58)
[2021-08-05] MEDS: diphenhydrAMINE CAP 25 MG CAPSULE PO PRN (21:59)
[2021-08-06] MEDS: ALBUTEROL/IPRATROPIUM 3 ML NEB RESP TX SCH ×2 (01:42→07:30)
[2021-08-06] MEDS: LEVOTHYROXINE 100 MCG TABLET PO SCH (06:12)
[2021-08-06] MEDS ORDERED: predniSONE 20 MG TABLET PO SCH (09:00)
[2021-08-06] MEDS ORDERED: INSULIN GLARGINE 100 UNIT/ML SUBCUT SCH (09:00)
[2021-08-06] MEDS: HydrOXYzine PAMOATE 25 MG CAPSULE PO SCH (09:12)
[2021-08-06] MEDS: FAMOTIDINE 20 MG TABLET PO SCH (09:12)
[2021-08-06] MEDS: IRON (CARBONYL) 45 MG TABLET PO SCH (09:12)
[2021-08-06] MEDS: BENZONATATE 100 MG CAPSULE PO SCH (09:12)
[2021-08-06] MEDS: amLODIPine 10 MG TABLET PO SCH (09:12)
[2021-08-06] MEDS: sitaGLIPtin 25 MG TABLET PO SCH (09:12)
[2021-08-06] MEDS: ASPIRIN EC 81 MG TABLET PO SCH (09:12)
[2021-08-06] MEDS: DOXYCYCLINE HYCLATE 100 MG CAPSULE PO SCH (09:13)
[2021-08-06] MEDS: CHOLECALCIFEROL 1,000 UNIT TABLET PO SCH (09:13)
[2021-08-06 09:23] LABS: Basophils % 0.2 % (0.0-0.8); Eosinophils % 0.3 % (0.00-10.9); Hematocrit 36.1 VOL% (35.7-47.0); Hemoglobin 11.5 GM/DL (12.0-16.0); Immature Granulocytes % 1.8 %; Immature Granulocytes Absolute 0.22 #; Lymphocytes % 24.4 % (21.3-54.2); Mean Corpuscular HGB Conc 31.9 GM/DL (32-36); Mean Corpuscular Volume 84.1 FL (87-102); Monocytes % 6.5 % (1.7-12.7); Neutrophils % 66.8 % (38.7-73.9); Platelet Count 343 T/CUMM (130-400); Red Blood Count 4.29 MC/CUMM (3.8-5.5); Red Cell Distribution Width 15.5 % (9.3-17.3); White Blood Count 12.2 T/CUMM (4-12)
[2021-08-06] MEDS: SERTRALINE 50 MG TABLET PO SCH (09:30)
[2021-08-06 09:38] LABS: Calcium 8.5 MG/DL (8.5-10.1); Osmolality,Calculated 288.8 MOS/KG (273-304); Potassium 3.4 MMOL/L (3.5-5.1)
[2021-08-06] MEDS: INSULIN LISPRO 100 UNIT/ML SUBCUT SCH ×2 (09:48→12:16)
[2021-08-06 11:42] VITALS: BP 131/71
== END 2021-08-06 11:20 | disposition home health service (06) | DRG 871 ==
LOC: N.ED 08:54 → N.EDINP 10:47 → SUATTDRO 10:47 → N.5E 16:13
PROVIDERS: ADMIT Internal Medicine; ATTEND Internal Medicine

== ENCOUNTER 2021-08-28 17:21 | Inpatient (IN) ==
[2021-08-28] MEDS ORDERED: LACTATED RINGERS 1,000 ML IV ONE (17:34)
[2021-08-28] MEDS ORDERED: ACETAMINOPHEN 500 MG TABLET PO STA (17:35)
[2021-08-28] MEDS ORDERED: VANCOMYCIN INJ 2,000 MG in SODIUM CHLORIDE 0.9% 250 ML IV STA (17:49)
[2021-08-28] MEDS ORDERED: CEFEPIME 2,000 MG in SODIUM CHLORIDE 0.9% 100 ML IV STA (17:49)
[2021-08-28] MEDS ORDERED: VANCOMYCIN INJ 2,000 MG in SODIUM CHLORIDE 0.9% 500 ML IV STA (17:53)
[2021-08-28 18:32] LABS: Basophils % 0.2 % (0.0-0.8); Eosinophils # 0.1 10*3/uL (0.0-0.87); Eosinophils % 1.1 % (0.00-10.9); Hematocrit 34.7 VOL% (35.7-47.0); Hemoglobin 10.4 GM/DL (12.0-16.0); Immature Granulocytes % 1.5 %; Immature Granulocytes Absolute 0.19 #; Lymphocytes # 1.4 10*3/uL (1.4-4.0); Lymphocytes % 11.1 % (21.3-54.2); Mean Corpuscular Volume 83.2 FL (87-102); Mean Platelet Volume 9.1 FL (9.6-12.0); Monocytes % 4.2 % (1.7-12.7); NRBC # 0.02 10*3/uL; Neutrophils % 81.9 % (38.7-73.9); Platelet Count 206 T/CUMM (130-400); Red Blood Count 4.17 MC/CUMM (3.8-5.5); Red Cell Distribution Width 17.1 % (9.3-17.3)
[2021-08-28 18:42] LABS: PT Patient Result 11.6 SECS (10.5-12.0); Partial Thromboplastin Time 24.5 SECS (23.8-32.1)
[2021-08-28 18:54] LABS: Alanine Aminotransferase 13 U/L (13-56); Albumin 2.9 G/DL (3.4-5.0); Alkaline Phosphatase 84 U/L (45-117); Aspartate Amino Transferase 25 U/L (0-37); Bilirubin,Total < 0.39 MG/DL (0.20-1.00); Blood Urea Nitrogen 10 MG/DL (7-18); Carbon Dioxide 26 MMOL/L (21-32); Estimated Glom Filtration Rate 82 ML/MIN; Glucose 216 MG/DL (74-106); Osmolality,Calculated 280.7 MOS/KG (273-304); Potassium 3.6 MMOL/L (3.5-5.1); Sodium 138 MMOL/L (136-145)
[2021-08-28 18:59] LABS: Band Neutrophils 11 % (0-10); Lymphocytes 8 % (20-55); Segmented Neutrophils 73 % (50-85); Total Cells Counted 100
[2021-08-28 19:01] LABS: Hypochromia 1+; Microcytosis 1+; Platelet Estimate Decreased; Polychromasia 1+
[2021-08-28 19:06] LABS: Free T4 (Free Thyroxine) 1.16 NG/DL (0.76-1.46); Thyroid Stimulating Hormone 3.07 uIU/ml (0.358-3.74)
[2021-08-28 19:29] LABS: Bilirubin,Urine Negative (Negative); Blood, Urine Negative (Negative); Glucose,Urine (UA) 50 mg/dL (Negative); Hyaline Casts,Urine 1 /LPF (0-3); Ketones,Urine Negative (Negative); Mucus,Urine Occasional /LPF (Occasional); Nitrite,Urine Negative (Negative); Protein,Urine 30 MG/DL; RBC,Urine <1 /HPF (0-4); Squamous Epithelial Cell,Urine Occasional /HPF (0-10); Urine Appearance CLEAR (Clear); Urine Color Yellow (Yellow); Urine Specific Gravity 1.011 (1.001-1.035); Urine Urobilinogen < 2.0 EU/DL (<2.0)
[2021-08-28 20:35] LABS: ABG Base Excess 0.8 MMOL/L (-2.5-2.5); ABG HCO3 24.6 MMOL/L (20-26); ABG Oxygen Saturation 62.9 % (95-100); ABG PCO2 44.9 MM HG (35-48); ABG PH 7.376 (7.35-7.45); ABG TCO2 24.2 MMOL/L (23-27)
[2021-08-28 20:36] LABS: ABG PO2 34.7 MM HG (80-95)
[2021-08-28] MEDS ORDERED: SODIUM CHLORIDE 0.9% 2,150 ML IV STA (21:15)
[2021-08-28] MEDS ORDERED: GLUCAGON 1 MG VIAL IM PRN (21:43)
[2021-08-28] MEDS ORDERED: ONDANSETRON 4 MG/2 ML VIAL IV PRN (21:43)
[2021-08-28] MEDS ORDERED: DEXTROSE 50% 25 GM/50 ML SYRINGE IV PRN (21:43)
[2021-08-28] MEDS ORDERED: POTASSIUM CHLORIDE RIDER 10 MEQ/100 ML PREMIX IV PRN (21:53)
[2021-08-28] MEDS ORDERED: MAGNESIUM SULF RIDER 4 GM/100 ML PREMIX IV PRN (21:53)
[2021-08-28] MEDS: ENOXAPARIN 40 MG/0.4 ML SYRINGE SUBCUT SCH (22:28)
[2021-08-29] MEDS: ACETAMINOPHEN 325 MG TABLET PO PRN (00:25)
[2021-08-29 01:27] LABS: ABG Base Excess 1.4 MMOL/L (-2.5-2.5); ABG HCO3 25.6 MMOL/L (20-26); ABG Oxygen Saturation 92.6 % (95-100); ABG PCO2 34.7 MM HG (35-48); ABG PH 7.463 (7.35-7.45); ABG PO2 61.6 MM HG (80-95); ABG TCO2 22.6 MMOL/L (23-27)
[2021-08-29] MEDS ORDERED: FUROSEMIDE 40 MG/4 ML VIAL IV ONE (01:38)
[2021-08-29] MEDS: ALBUTEROL/IPRATROPIUM 3 ML NEB RESP TX SCH ×4 (01:51→21:16)
[2021-08-29] MEDS ORDERED: PIPERACILLIN/TAZOBACTAM 3,375 MG in SODIUM CHLORIDE 0.9% 100 ML IV SCH (02:00)
[2021-08-29 02:51] LABS: Calcium 7.7 MG/DL (8.5-10.1); Osmolality,Calculated 285.5 MOS/KG (273-304); Potassium 3.6 MMOL/L (3.5-5.1)
[2021-08-29] MEDS: CEFEPIME 1,000 MG in SODIUM CHLORIDE 0.9% 100 ML IV SCH ×3 (03:20→18:20)
[2021-08-29 05:18] LABS: Basophils % 0.1 % (0.0-0.8); Eosinophils % 0.2 % (0.00-10.9); Hematocrit 31.5 VOL% (35.7-47.0); Hemoglobin 9.5 GM/DL (12.0-16.0); Immature Granulocytes % 1.4 %; Immature Granulocytes Absolute 0.19 #; Lymphocytes # 1.9 10*3/uL (1.4-4.0); Lymphocytes % 14.4 % (21.3-54.2); Mean Corpuscular HGB Conc 30.2 GM/DL (32-36); Mean Corpuscular Volume 82.9 FL (87-102); Mean Platelet Volume 9.5 FL (9.6-12.0); Monocytes % 3.7 % (1.7-12.7); Neutrophils % 80.2 % (38.7-73.9); Platelet Count 169 T/CUMM (130-400); Red Cell Distribution Width 17.1 % (9.3-17.3); White Blood Count 13.5 T/CUMM (4-12)
[2021-08-29 05:54] LABS: Anisocytosis 1+; Band Neutrophils 35 % (0-10); Hypochromia 1+; Lymphocytes 14 % (20-55); Metamyelocytes 5 %; Platelet Estimate Normal; Segmented Neutrophils 41 % (50-85); Total Cells Counted 100
[2021-08-29 05:55] LABS: Tear Drop Cells Few
[2021-08-29] MEDS: LEVOTHYROXINE 100 MCG TABLET PO SCH (06:36)
[2021-08-29] MEDS: BENZONATATE 100 MG CAPSULE PO SCH ×2 (08:30→20:41)
[2021-08-29] MEDS: CETIRIZINE 10 MG TABLET PO SCH (08:30)
[2021-08-29] MEDS: PANTOPRAZOLE 40 MG TABLET PO SCH (08:31)
[2021-08-29] MEDS: amLODIPine 10 MG TABLET PO SCH (08:31)
[2021-08-29] MEDS: FUROSEMIDE 40 MG/4 ML VIAL IV SCH (08:32)
[2021-08-29] MEDS: INSULIN REGULAR 100 UNIT/ML SUBCUT SCH ×5 (08:32→23:43)
[2021-08-29] MEDS ORDERED: predniSONE 20 MG TABLET PO SCH (09:00)
[2021-08-29] MEDS ORDERED: VANCOMYCIN INJ 1,500 MG in SODIUM CHLORIDE 0.9% 500 ML IV SCH (09:00)
[2021-08-29] MEDS: methylPREDNISolone SOD SUC 40 MG/1 ML VIAL IV SCH ×2 (09:07→18:17)
[2021-08-29] MEDS ORDERED: ALBUTEROL 2.5 MG/3 ML NEB RESP TX STA (11:48)
[2021-08-29] MEDS ORDERED: ALBUTEROL 2.5 MG/3 ML NEB RESP TX PRN (11:49)
[2021-08-29] MEDS ORDERED: busPIRone 10 MG TABLET PO SCH (12:00)
[2021-08-29] MEDS: LORazepam 0.5 MG TABLET PO PRN ×2 (12:45→20:42)
[2021-08-29] MEDS: DOXYCYCLINE HYCLATE INJ 100 MG in SODIUM CHLORIDE 0.9% 100 ML IV SCH ×2 (13:22→23:44)
[2021-08-29] MEDS: ACETYLCYSTEINE 20% 800 MG/4 ML VIAL RESP TX SCH (14:00)
[2021-08-29] MEDS ORDERED: FUROSEMIDE 20 MG/2 ML VIAL IV ONE (15:41)
[2021-08-29] MEDS ORDERED: INSULIN REGULAR 100 UNIT/ML SUBCUT ONE (17:59)
[2021-08-29] MEDS: guaiFENesin/DM ER 600-30 MG TABLET PO PRN (20:41)
[2021-08-29] MEDS: ENOXAPARIN 40 MG/0.4 ML SYRINGE SUBCUT SCH ×2 (20:41→21:21)
[2021-08-29] MEDS ORDERED: INSULIN GLARGINE 100 UNIT/ML SUBCUT SCH (21:00)
[2021-08-30] MEDS: ACETYLCYSTEINE 20% 800 MG/4 ML VIAL RESP TX SCH ×3 (01:07→14:33)
[2021-08-30] MEDS: ALBUTEROL/IPRATROPIUM 3 ML NEB RESP TX SCH ×5 (01:08→20:25)
[2021-08-30] MEDS: methylPREDNISolone SOD SUC 40 MG/1 ML VIAL IV SCH ×2 (01:48→08:53)
[2021-08-30] MEDS: CEFEPIME 1,000 MG in SODIUM CHLORIDE 0.9% 100 ML IV SCH ×2 (02:09→10:21)
[2021-08-30 05:42] LABS: Basophils % 0.1 % (0.0-0.8); Hematocrit 31.3 VOL% (35.7-47.0); Hemoglobin 9.8 GM/DL (12.0-16.0); Immature Granulocytes % 1.1 %; Immature Granulocytes Absolute 0.15 #; Lymphocytes # 0.9 10*3/uL (1.4-4.0); Lymphocytes % 6.8 % (21.3-54.2); Mean Corpuscular HGB Conc 31.3 GM/DL (32-36); Mean Corpuscular Volume 81.3 FL (87-102); Monocytes % 2.3 % (1.7-12.7); Neutrophils % 89.7 % (38.7-73.9); Platelet Count 180 T/CUMM (130-400); Red Blood Count 3.85 MC/CUMM (3.8-5.5); Red Cell Distribution Width 16.9 % (9.3-17.3); White Blood Count 13.7 T/CUMM (4-12)
[2021-08-30] MEDS: LEVOTHYROXINE 100 MCG TABLET PO SCH (05:59)
[2021-08-30 06:04] LABS: Band Neutrophils 9 % (0-10); Lymphocytes 6 % (20-55); Segmented Neutrophils 78 % (50-85); Total Cells Counted 100
[2021-08-30 06:05] LABS: Hypochromia 1+; Microcytosis 1+; Target Cells Slight
[2021-08-30 06:06] LABS: Platelet Estimate Adequate
[2021-08-30 06:14] LABS: Albumin 2.4 G/DL (3.4-5.0); Bilirubin,Total 0.4 MG/DL (0.20-1.00); Calcium 7.9 MG/DL (8.5-10.1); Osmolality,Calculated 284.8 MOS/KG (273-304); Potassium 3.4 MMOL/L (3.5-5.1); Total Protein 7.6 G/DL (6.4-8.2)
[2021-08-30] MEDS: BENZONATATE 100 MG CAPSULE PO SCH ×2 (08:51→20:25)
[2021-08-30] MEDS: amLODIPine 10 MG TABLET PO SCH (08:51)
[2021-08-30] MEDS: PANTOPRAZOLE 40 MG TABLET PO SCH (08:51)
[2021-08-30] MEDS: CETIRIZINE 10 MG TABLET PO SCH (08:51)
[2021-08-30] MEDS: INSULIN REGULAR 100 UNIT/ML SUBCUT SCH ×4 (08:53→20:25)
[2021-08-30] MEDS: FUROSEMIDE 40 MG/4 ML VIAL IV SCH (08:53)
[2021-08-30] MEDS: POTASSIUM CHLORIDE 20 MEQ TABLET PO PRN ×3 (10:20→20:25)
[2021-08-30] MEDS: LORazepam 0.5 MG TABLET PO PRN ×2 (10:20→20:24)
[2021-08-30] MEDS: DOXYCYCLINE HYCLATE INJ 100 MG in SODIUM CHLORIDE 0.9% 100 ML IV SCH ×2 (14:28→23:43)
[2021-08-30] MEDS: CEFEPIME 1,000 MG VIAL IM SCH (17:40)
[2021-08-30] MEDS: INSULIN GLARGINE 100 UNIT/ML SUBCUT SCH (20:25)
[2021-08-30] MEDS: ENOXAPARIN 40 MG/0.4 ML SYRINGE SUBCUT SCH (23:11)
[2021-08-31] MEDS: CEFEPIME 1,000 MG VIAL IM SCH ×2 (03:42→17:04)
[2021-08-31] MEDS: ALBUTEROL/IPRATROPIUM 3 ML NEB RESP TX SCH ×6 (04:00→20:15)
[2021-08-31] MEDS: LEVOTHYROXINE 100 MCG TABLET PO SCH (05:43)
[2021-08-31 06:35] LABS: Basophils % 0.1 % (0.0-0.8); Hematocrit 30.1 VOL% (35.7-47.0); Hemoglobin 9.2 GM/DL (12.0-16.0); Immature Granulocytes % 3.6 %; Immature Granulocytes Absolute 0.51 #; Lymphocytes # 1.3 10*3/uL (1.4-4.0); Lymphocytes % 9.5 % (21.3-54.2); Mean Corpuscular HGB Conc 30.6 GM/DL (32-36); Mean Corpuscular Volume 82.7 FL (87-102); Mean Platelet Volume 9.8 FL (9.6-12.0); Monocytes % 3.9 % (1.7-12.7); Neutrophils % 82.9 % (38.7-73.9); Platelet Count 207 T/CUMM (130-400); Red Blood Count 3.64 MC/CUMM (3.8-5.5); Red Cell Distribution Width 17.3 % (9.3-17.3); White Blood Count 14.2 T/CUMM (4-12)
[2021-08-31 07:00] LABS: Hypochromia 1+; Lymphocytes 4 % (20-55); Microcytosis 1+; Platelet Estimate Adequate; Segmented Neutrophils 94 % (50-85); Total Cells Counted 100
[2021-08-31 07:07] LABS: Albumin 2.3 G/DL (3.4-5.0); Calcium 7.8 MG/DL (8.5-10.1); Osmolality,Calculated 285.7 MOS/KG (273-304); Potassium 3.9 MMOL/L (3.5-5.1); Total Protein 7.2 G/DL (6.4-8.2)
[2021-08-31] MEDS: ACETYLCYSTEINE 20% 800 MG/4 ML VIAL RESP TX SCH ×3 (07:35→14:40)
[2021-08-31] MEDS ORDERED: ALUM/MAG/SIMETH/LIDO VISC 1:1 30 ML BOTTLE PO ONE (08:57)
[2021-08-31] MEDS ORDERED: methylPREDNISolone SOD SUC 40 MG/1 ML VIAL IV ONE (09:00)
[2021-08-31] MEDS ORDERED: FUROSEMIDE 20 MG/2 ML VIAL IV SCH (09:00)
[2021-08-31] MEDS: POLYETHYLENE GLYCOL POWDER 17 GM PACK PO SCH (09:27)
[2021-08-31] MEDS: INSULIN REGULAR 100 UNIT/ML SUBCUT SCH ×4 (09:28→20:35)
[2021-08-31] MEDS: CETIRIZINE 10 MG TABLET PO SCH (09:28)
[2021-08-31] MEDS: amLODIPine 10 MG TABLET PO SCH (09:28)
[2021-08-31] MEDS: PANTOPRAZOLE 40 MG TABLET PO SCH (09:28)
[2021-08-31] MEDS: BENZONATATE 100 MG CAPSULE PO SCH ×2 (09:28→20:34)
[2021-08-31] MEDS ORDERED: KETOROLAC 30 MG/1 ML VIAL IV ONE (12:33)
[2021-08-31] MEDS: DOXYCYCLINE HYCLATE INJ 100 MG in SODIUM CHLORIDE 0.9% 100 ML IV SCH (12:57)
[2021-08-31] MEDS ORDERED: diphenhydrAMINE CAP 25 MG CAPSULE PO ONE (17:31)
[2021-08-31] MEDS: INSULIN GLARGINE 100 UNIT/ML SUBCUT SCH (20:35)
[2021-08-31] MEDS: ENOXAPARIN 40 MG/0.4 ML SYRINGE SUBCUT SCH (21:19)
[2021-09-01] MEDS: DOXYCYCLINE HYCLATE INJ 100 MG in SODIUM CHLORIDE 0.9% 100 ML IV SCH (00:05)
[2021-09-01] MEDS: ACETYLCYSTEINE 20% 800 MG/4 ML VIAL RESP TX SCH ×4 (03:00→23:59)
[2021-09-01] MEDS: ALBUTEROL/IPRATROPIUM 3 ML NEB RESP TX SCH ×7 (03:00→23:59)
[2021-09-01] MEDS: CEFEPIME 1,000 MG VIAL IM SCH (03:14)
[2021-09-01] MEDS: guaiFENesin/DM ER 600-30 MG TABLET PO PRN (03:17)
[2021-09-01 06:02] LABS: Basophils % 0.1 % (0.0-0.8); Hematocrit 29.7 VOL% (35.7-47.0); Hemoglobin 9.1 GM/DL (12.0-16.0); Immature Granulocytes % 4.7 %; Immature Granulocytes Absolute 0.43 #; Lymphocytes # 1.8 10*3/uL (1.4-4.0); Mean Corpuscular HGB Conc 30.6 GM/DL (32-36); Mean Platelet Volume 9.5 FL (9.6-12.0); Neutrophils % 71.2 % (38.7-73.9); Platelet Count 210 T/CUMM (130-400); Red Blood Count 3.62 MC/CUMM (3.8-5.5); Red Cell Distribution Width 17.2 % (9.3-17.3); White Blood Count 9.2 T/CUMM (4-12)
[2021-09-01 06:32] LABS: Alanine Aminotransferase 14 U/L (13-56); Albumin 2.4 G/DL (3.4-5.0); Alkaline Phosphatase 76 U/L (45-117); Aspartate Amino Transferase 33 U/L (0-37); Bilirubin,Total < 0.39 MG/DL (0.20-1.00); Blood Urea Nitrogen 32 MG/DL (7-18); Calcium 7.8 MG/DL (8.5-10.1); Carbon Dioxide 28 MMOL/L (21-32); Estimated Glom Filtration Rate 74 ML/MIN; Glucose 185 MG/DL (74-106); Osmolality,Calculated 286.7 MOS/KG (273-304); Potassium 3.9 MMOL/L (3.5-5.1); Sodium 138 MMOL/L (136-145); Total Protein 7.4 G/DL (6.4-8.2)
[2021-09-01 06:32] LABS: Hypochromia Slight; Lymphocytes 17 % (20-55); Microcytosis Slight; Platelet Estimate Normal; Segmented Neutrophils 79 % (50-85); Total Cells Counted 100
[2021-09-01] MEDS: LEVOTHYROXINE 100 MCG TABLET PO SCH (06:42)
[2021-09-01] MEDS: predniSONE 10 MG TABLET PO SCH (09:21)
[2021-09-01] MEDS: POLYETHYLENE GLYCOL POWDER 17 GM PACK PO SCH (09:21)
[2021-09-01] MEDS: DOXYCYCLINE HYCLATE 100 MG CAPSULE PO SCH ×2 (09:21→21:40)
[2021-09-01] MEDS: INSULIN REGULAR 100 UNIT/ML SUBCUT SCH ×4 (09:21→21:26)
[2021-09-01] MEDS: amLODIPine 10 MG TABLET PO SCH (09:21)
[2021-09-01] MEDS: BENZONATATE 100 MG CAPSULE PO SCH ×2 (09:21→21:39)
[2021-09-01] MEDS: PANTOPRAZOLE 40 MG TABLET PO SCH (09:21)
[2021-09-01] MEDS: ASPIRIN EC 81 MG TABLET PO SCH (09:21)
[2021-09-01] MEDS: CHOLECALCIFEROL 1,000 UNIT TABLET PO SCH (09:21)
[2021-09-01] MEDS: SERTRALINE 50 MG TABLET PO SCH (09:22)
[2021-09-01] MEDS: CETIRIZINE 10 MG TABLET PO SCH (09:22)
[2021-09-01] MEDS: CEFEPIME 1,000 MG in SODIUM CHLORIDE 0.9% 100 ML IV SCH ×4 (09:44→23:54)
[2021-09-01] MEDS: INSULIN GLARGINE 100 UNIT/ML SUBCUT SCH (21:26)
[2021-09-01] MEDS: ENOXAPARIN 40 MG/0.4 ML SYRINGE SUBCUT SCH (21:27)
[2021-09-01] MEDS: LORazepam 0.5 MG TABLET PO PRN (23:50)
[2021-09-02] MEDS: ALBUTEROL/IPRATROPIUM 3 ML NEB RESP TX SCH ×5 (04:00→19:15)
[2021-09-02] MEDS: diphenhydrAMINE CAP 25 MG CAPSULE PO PRN ×3 (04:35→20:45)
[2021-09-02 05:16] LABS: Basophils # 0.1 10*3/uL (0.0-0.2); Basophils % 0.8 % (0.0-0.8); Eosinophils % 0.2 % (0.00-10.9); Immature Granulocytes % 6.8 %; Immature Granulocytes Absolute 0.65 #; Lymphocytes # 3.4 10*3/uL (1.4-4.0); Lymphocytes % 35.9 % (21.3-54.2); Mean Corpuscular HGB Conc 30.3 GM/DL (32-36); Mean Corpuscular Volume 82.7 FL (87-102); Mean Platelet Volume 9.3 FL (9.6-12.0); Monocytes % 4.1 % (1.7-12.7); NRBC # 0.03 10*3/uL; Neutrophils % 52.2 % (38.7-73.9); Platelet Count 224 T/CUMM (130-400); Red Blood Count 3.99 MC/CUMM (3.8-5.5); Red Cell Distribution Width 17.1 % (9.3-17.3); White Blood Count 9.6 T/CUMM (4-12)
[2021-09-02 05:40] LABS: Band Neutrophils 1 % (0-10); Eosinophils 1 % (0-10); Hypochromia 1+; Lymphocytes 31 % (20-55); Metamyelocytes 1 %; Microcytosis 1+; Myelocytes 1 %; Segmented Neutrophils 61 % (50-85); Target Cells Slight; Total Cells Counted 100
[2021-09-02 05:41] LABS: Alanine Aminotransferase 18 U/L (13-56); Albumin 2.3 G/DL (3.4-5.0); Alkaline Phosphatase 91 U/L (45-117); Aspartate Amino Transferase 37 U/L (0-37); Bilirubin,Total < 0.39 MG/DL (0.20-1.00); Blood Urea Nitrogen 24 MG/DL (7-18); Calcium 8.6 MG/DL (8.5-10.1); Carbon Dioxide 29 MMOL/L (21-32); Estimated Glom Filtration Rate 92 ML/MIN; Glucose 141 MG/DL (74-106); Osmolality,Calculated 282.5 MOS/KG (273-304); Platelet Estimate Normal; Potassium 3.6 MMOL/L (3.5-5.1); Sodium 139 MMOL/L (136-145); Total Protein 7.5 G/DL (6.4-8.2)
[2021-09-02] MEDS: LEVOTHYROXINE 100 MCG TABLET PO SCH (06:02)
[2021-09-02] MEDS: ACETYLCYSTEINE 20% 800 MG/4 ML VIAL RESP TX SCH ×2 (07:30)
[2021-09-02] MEDS: DOXYCYCLINE HYCLATE 100 MG CAPSULE PO SCH ×2 (09:30→20:46)
[2021-09-02] MEDS: ASPIRIN EC 81 MG TABLET PO SCH (09:30)
[2021-09-02] MEDS: PANTOPRAZOLE 40 MG TABLET PO SCH (09:30)
[2021-09-02] MEDS: CHOLECALCIFEROL 1,000 UNIT TABLET PO SCH (09:30)
[2021-09-02] MEDS: BENZONATATE 100 MG CAPSULE PO SCH ×2 (09:30→20:46)
[2021-09-02] MEDS: predniSONE 10 MG TABLET PO SCH (09:30)
[2021-09-02] MEDS: SERTRALINE 50 MG TABLET PO SCH (09:31)
[2021-09-02] MEDS: CETIRIZINE 10 MG TABLET PO SCH (09:31)
[2021-09-02] MEDS: LORazepam 0.5 MG TABLET PO PRN ×2 (09:32→20:45)
[2021-09-02] MEDS: POLYETHYLENE GLYCOL POWDER 17 GM PACK PO SCH (09:43)
[2021-09-02] MEDS: amLODIPine 10 MG TABLET PO SCH (09:43)
[2021-09-02] MEDS: INSULIN REGULAR 100 UNIT/ML SUBCUT SCH ×4 (09:43→20:47)
[2021-09-02] MEDS: ENOXAPARIN 40 MG/0.4 ML SYRINGE SUBCUT SCH (20:46)
[2021-09-02] MEDS ORDERED: INSULIN GLARGINE 100 UNIT/ML SUBCUT SCH (21:00)
[2021-09-03] MEDS: ALBUTEROL/IPRATROPIUM 3 ML NEB RESP TX SCH ×6 (00:03→19:45)
[2021-09-03 05:02] LABS: Basophils # 0.1 10*3/uL (0.0-0.2); Basophils % 0.6 % (0.0-0.8); Eosinophils % 0.3 % (0.00-10.9); Hematocrit 35.6 VOL% (35.7-47.0); Hemoglobin 10.6 GM/DL (12.0-16.0); Immature Granulocytes % 9.7 %; Immature Granulocytes Absolute 0.94 #; Lymphocytes # 3.6 10*3/uL (1.4-4.0); Lymphocytes % 36.7 % (21.3-54.2); Mean Corpuscular HGB Conc 29.8 GM/DL (32-36); Mean Corpuscular Volume 83.6 FL (87-102); Mean Platelet Volume 9.4 FL (9.6-12.0); Monocytes % 6.2 % (1.7-12.7); NRBC # 0.03 10*3/uL; Neutrophils % 46.5 % (38.7-73.9); Platelet Count 256 T/CUMM (130-400); Red Blood Count 4.26 MC/CUMM (3.8-5.5); Red Cell Distribution Width 17.3 % (9.3-17.3); White Blood Count 9.7 T/CUMM (4-12)
[2021-09-03 05:24] LABS: Albumin 2.4 G/DL (3.4-5.0); Bilirubin,Total 1.7 MG/DL (0.20-1.00); Calcium 9.1 MG/DL (8.5-10.1); Osmolality,Calculated 284.3 MOS/KG (273-304); Total Protein 7.9 G/DL (6.4-8.2)
[2021-09-03] MEDS: LEVOTHYROXINE 100 MCG TABLET PO SCH (06:08)
[2021-09-03 09:23] LABS: Atypical Lymphocytes Few; Lymphocytes 45 % (20-55); Metamyelocytes 2 %; Segmented Neutrophils 47 % (50-85); Total Cells Counted 100
[2021-09-03 09:24] LABS: Hypochromia 3+; Ovalocytes 1+; Platelet Estimate Normal; Polychromasia Slight; Target Cells Few
[2021-09-03] MEDS: POLYETHYLENE GLYCOL POWDER 17 GM PACK PO SCH (11:05)
[2021-09-03] MEDS: amLODIPine 10 MG TABLET PO SCH (11:05)
[2021-09-03] MEDS: CHOLECALCIFEROL 1,000 UNIT TABLET PO SCH (11:05)
[2021-09-03] MEDS: SERTRALINE 50 MG TABLET PO SCH (11:05)
[2021-09-03] MEDS: DOXYCYCLINE HYCLATE 100 MG CAPSULE PO SCH ×2 (11:06→22:59)
[2021-09-03] MEDS: CETIRIZINE 10 MG TABLET PO SCH (11:06)
[2021-09-03] MEDS: PANTOPRAZOLE 40 MG TABLET PO SCH (11:06)
[2021-09-03] MEDS: BENZONATATE 100 MG CAPSULE PO SCH ×2 (11:06→22:59)
[2021-09-03] MEDS: predniSONE 10 MG TABLET PO SCH (11:07)
[2021-09-03] MEDS: INSULIN REGULAR 100 UNIT/ML SUBCUT SCH ×4 (11:10→23:00)
[2021-09-03] MEDS: ASPIRIN EC 81 MG TABLET PO SCH (11:10)
[2021-09-03] MEDS: diphenhydrAMINE CAP 25 MG CAPSULE PO PRN (11:10)
[2021-09-03] MEDS ORDERED: INSULIN GLARGINE 100 UNIT/ML SUBCUT SCH (21:00)
[2021-09-03] MEDS: ENOXAPARIN 40 MG/0.4 ML SYRINGE SUBCUT SCH (22:59)
[2021-09-04] MEDS: ALBUTEROL/IPRATROPIUM 3 ML NEB RESP TX SCH ×5 (00:18→15:51)
[2021-09-04 06:41] LABS: Osmolality,Calculated 281.5 MOS/KG (273-304); Potassium 4.2 MMOL/L (3.5-5.1)
[2021-09-04] MEDS: LEVOTHYROXINE 100 MCG TABLET PO SCH (06:51)
[2021-09-04] MEDS: ASPIRIN EC 81 MG TABLET PO SCH (09:40)
[2021-09-04] MEDS: CHOLECALCIFEROL 1,000 UNIT TABLET PO SCH (09:40)
[2021-09-04] MEDS: PANTOPRAZOLE 40 MG TABLET PO SCH (09:40)
[2021-09-04] MEDS: SERTRALINE 50 MG TABLET PO SCH (09:40)
[2021-09-04] MEDS: predniSONE 10 MG TABLET PO SCH (09:40)
[2021-09-04] MEDS: amLODIPine 10 MG TABLET PO SCH (09:40)
[2021-09-04] MEDS: BENZONATATE 100 MG CAPSULE PO SCH ×2 (09:40→22:52)
[2021-09-04] MEDS: POLYETHYLENE GLYCOL POWDER 17 GM PACK PO SCH (10:01)
[2021-09-04] MEDS: DOXYCYCLINE HYCLATE 100 MG CAPSULE PO SCH ×2 (10:02→22:52)
[2021-09-04] MEDS: INSULIN REGULAR 100 UNIT/ML SUBCUT SCH ×4 (10:02→22:53)
[2021-09-04] MEDS: CETIRIZINE 10 MG TABLET PO SCH (10:02)
[2021-09-04] MEDS ORDERED: INSULIN GLARGINE 100 UNIT/ML SUBCUT SCH (21:00)
[2021-09-04] MEDS: ENOXAPARIN 40 MG/0.4 ML SYRINGE SUBCUT SCH (22:54)
[2021-09-05] MEDS: ALBUTEROL/IPRATROPIUM 3 ML NEB RESP TX SCH ×8 (00:31→23:24)
[2021-09-05 05:54] LABS: Basophils % 0.5 % (0.0-0.8); Eosinophils # 0.1 10*3/uL (0.0-0.87); Eosinophils % 0.6 % (0.00-10.9); Hematocrit 34.5 VOL% (35.7-47.0); Hemoglobin 10.5 GM/DL (12.0-16.0); Immature Granulocytes % 11.7 %; Immature Granulocytes Absolute 1.01 #; Lymphocytes # 2.5 10*3/uL (1.4-4.0); Lymphocytes % 28.4 % (21.3-54.2); Mean Corpuscular HGB Conc 30.4 GM/DL (32-36); Mean Corpuscular Volume 82.9 FL (87-102); Mean Platelet Volume 9.1 FL (9.6-12.0); Monocytes % 5.2 % (1.7-12.7); Neutrophils % 53.6 % (38.7-73.9); Platelet Count 282 T/CUMM (130-400); Red Blood Count 4.16 MC/CUMM (3.8-5.5); Red Cell Distribution Width 17.4 % (9.3-17.3); White Blood Count 8.6 T/CUMM (4-12)
[2021-09-05 06:14] LABS: Calcium 8.9 MG/DL (8.5-10.1); Osmolality,Calculated 285.5 MOS/KG (273-304); Potassium 4.1 MMOL/L (3.5-5.1)
[2021-09-05] MEDS: LEVOTHYROXINE 100 MCG TABLET PO SCH (06:40)
[2021-09-05 06:46] LABS: Band Neutrophils 2 % (0-10); Hypochromia 1+; Lymphocytes 35 % (20-55); Metamyelocytes 2 %; Microcytosis 1+; Myelocytes 3 %; Segmented Neutrophils 55 % (50-85); Total Cells Counted 100
[2021-09-05 06:47] LABS: Platelet Estimate Normal; Polychromasia Slight
[2021-09-05 08:05] LABS: Bacteria,Urine Occasional /HPF (Few); Bilirubin,Urine Negative (Negative); Blood, Urine Negative (Negative); Glucose,Urine (UA) 50 mg/dL (Negative); Ketones,Urine Negative (Negative); Mucus,Urine Occasional /LPF (Occasional); Nitrite,Urine Negative (Negative); Protein,Urine Negative; RBC,Urine 1 /HPF (0-4); Squamous Epithelial Cell,Urine Occasional /HPF (0-10); Urine Appearance Slightly Hazy (Clear); Urine Color Yellow (Yellow); Urine Specific Gravity 1.019 (1.001-1.035); Urine Urobilinogen < 2.0 EU/DL (<2.0)
[2021-09-05] MEDS: predniSONE 10 MG TABLET PO SCH (10:27)
[2021-09-05] MEDS: amLODIPine 10 MG TABLET PO SCH (10:27)
[2021-09-05] MEDS: SERTRALINE 50 MG TABLET PO SCH (10:27)
[2021-09-05] MEDS: DOXYCYCLINE HYCLATE 100 MG CAPSULE PO SCH ×2 (10:27→22:51)
[2021-09-05] MEDS: CHOLECALCIFEROL 1,000 UNIT TABLET PO SCH (10:27)
[2021-09-05] MEDS: PANTOPRAZOLE 40 MG TABLET PO SCH (10:28)
[2021-09-05] MEDS: BENZONATATE 100 MG CAPSULE PO SCH ×2 (10:28→22:51)
[2021-09-05] MEDS: CETIRIZINE 10 MG TABLET PO SCH (10:28)
[2021-09-05] MEDS: ASPIRIN EC 81 MG TABLET PO SCH (10:28)
[2021-09-05] MEDS: POLYETHYLENE GLYCOL POWDER 17 GM PACK PO SCH (10:29)
[2021-09-05] MEDS: INSULIN REGULAR 100 UNIT/ML SUBCUT SCH ×4 (10:29→22:52)
[2021-09-05] MEDS: MAGNESIUM SULF RIDER 2 GM/50 ML PREMIX IV PRN (10:41)
[2021-09-05] MEDS: HYOSCYAMINE 0.125 MG TABLET PO SCH ×2 (14:51→22:50)
[2021-09-05] MEDS: ENOXAPARIN 40 MG/0.4 ML SYRINGE SUBCUT SCH (22:52)
[2021-09-05] MEDS: INSULIN GLARGINE 100 UNIT/ML SUBCUT SCH (22:52)
[2021-09-06] MEDS: ALBUTEROL/IPRATROPIUM 3 ML NEB RESP TX SCH ×5 (03:23→19:20)
[2021-09-06] MEDS: HYOSCYAMINE 0.125 MG TABLET PO SCH ×3 (04:00→21:58)
[2021-09-06 06:19] LABS: Basophils # 0.1 10*3/uL (0.0-0.2); Basophils % 0.5 % (0.0-0.8); Eosinophils # 0.1 10*3/uL (0.0-0.87); Eosinophils % 0.8 % (0.00-10.9); Hematocrit 37.2 VOL% (35.7-47.0); Hemoglobin 11.2 GM/DL (12.0-16.0); Immature Granulocytes % 10.1 %; Lymphocytes # 3.7 10*3/uL (1.4-4.0); Lymphocytes % 30.8 % (21.3-54.2); Mean Corpuscular HGB Conc 30.1 GM/DL (32-36); Mean Corpuscular Volume 82.7 FL (87-102); Monocytes % 5.2 % (1.7-12.7); Neutrophils % 52.6 % (38.7-73.9); Platelet Count 311 T/CUMM (130-400); Red Cell Distribution Width 17.2 % (9.3-17.3); White Blood Count 11.9 T/CUMM (4-12)
[2021-09-06 06:53] LABS: Calcium 9.4 MG/DL (8.5-10.1); Osmolality,Calculated 277.7 MOS/KG (273-304); Potassium 3.8 MMOL/L (3.5-5.1)
[2021-09-06 07:08] LABS: Band Neutrophils 1 % (0-10); Eosinophils 1 % (0-10); Hypochromia 1+; Lymphocytes 22 % (20-55); Microcytosis 1+; Platelet Estimate Adequate; Segmented Neutrophils 65 % (50-85); Total Cells Counted 100
[2021-09-06] MEDS: PANTOPRAZOLE 40 MG TABLET PO SCH (08:58)
[2021-09-06] MEDS: amLODIPine 10 MG TABLET PO SCH (08:58)
[2021-09-06] MEDS: BENZONATATE 100 MG CAPSULE PO SCH ×2 (08:58→22:00)
[2021-09-06] MEDS: DOXYCYCLINE HYCLATE 100 MG CAPSULE PO SCH ×2 (08:58→21:58)
[2021-09-06] MEDS: ASPIRIN EC 81 MG TABLET PO SCH (08:58)
[2021-09-06] MEDS: CHOLECALCIFEROL 1,000 UNIT TABLET PO SCH (08:58)
[2021-09-06] MEDS: CETIRIZINE 10 MG TABLET PO SCH (08:58)
[2021-09-06] MEDS: SERTRALINE 50 MG TABLET PO SCH (08:58)
[2021-09-06] MEDS: LEVOTHYROXINE 100 MCG TABLET PO SCH (08:58)
[2021-09-06] MEDS: POLYETHYLENE GLYCOL POWDER 17 GM PACK PO SCH (08:58)
[2021-09-06] MEDS: INSULIN REGULAR 100 UNIT/ML SUBCUT SCH ×4 (08:59→21:59)
[2021-09-06] MEDS: ACETAMINOPHEN 325 MG TABLET PO PRN (21:58)
[2021-09-06] MEDS: INSULIN GLARGINE 100 UNIT/ML SUBCUT SCH (21:59)
[2021-09-06] MEDS: ENOXAPARIN 40 MG/0.4 ML SYRINGE SUBCUT SCH (21:59)
[2021-09-06] MEDS: guaiFENesin/DM ER 600-30 MG TABLET PO PRN (21:59)
[2021-09-07] MEDS: ALBUTEROL/IPRATROPIUM 3 ML NEB RESP TX SCH ×6 (00:06→20:42)
[2021-09-07] MEDS: HYOSCYAMINE 0.125 MG TABLET PO SCH ×3 (05:21→21:01)
[2021-09-07] MEDS: LEVOTHYROXINE 100 MCG TABLET PO SCH ×2 (05:21→05:32)
[2021-09-07] MEDS: CHOLECALCIFEROL 1,000 UNIT TABLET PO SCH (08:33)
[2021-09-07] MEDS: ASPIRIN EC 81 MG TABLET PO SCH (08:33)
[2021-09-07] MEDS: BENZONATATE 100 MG CAPSULE PO SCH ×2 (08:33→21:01)
[2021-09-07] MEDS: PANTOPRAZOLE 40 MG TABLET PO SCH (08:33)
[2021-09-07] MEDS: DOXYCYCLINE HYCLATE 100 MG CAPSULE PO SCH ×2 (08:33→21:01)
[2021-09-07] MEDS: SERTRALINE 50 MG TABLET PO SCH (08:33)
[2021-09-07] MEDS: POLYETHYLENE GLYCOL POWDER 17 GM PACK PO SCH (08:34)
[2021-09-07] MEDS: amLODIPine 10 MG TABLET PO SCH (08:34)
[2021-09-07] MEDS: CETIRIZINE 10 MG TABLET PO SCH (08:34)
[2021-09-07] MEDS: INSULIN REGULAR 100 UNIT/ML SUBCUT SCH ×4 (08:34→21:01)
[2021-09-07] MEDS: guaiFENesin/DM ER 600-30 MG TABLET PO PRN (21:01)
[2021-09-07] MEDS: ACETAMINOPHEN 325 MG TABLET PO PRN (21:01)
[2021-09-07] MEDS: ENOXAPARIN 40 MG/0.4 ML SYRINGE SUBCUT SCH (21:01)
[2021-09-07] MEDS: INSULIN GLARGINE 100 UNIT/ML SUBCUT SCH (21:02)
[2021-09-08] MEDS: ALBUTEROL/IPRATROPIUM 3 ML NEB RESP TX SCH ×6 (00:44→20:38)
[2021-09-08] MEDS: HYOSCYAMINE 0.125 MG TABLET PO SCH ×3 (05:02→21:58)
[2021-09-08] MEDS: LEVOTHYROXINE 100 MCG TABLET PO SCH ×2 (05:03→05:37)
[2021-09-08] MEDS: BENZONATATE 100 MG CAPSULE PO SCH ×2 (09:27→21:58)
[2021-09-08] MEDS: ASPIRIN EC 81 MG TABLET PO SCH (09:27)
[2021-09-08] MEDS: CETIRIZINE 10 MG TABLET PO SCH (09:27)
[2021-09-08] MEDS: DOXYCYCLINE HYCLATE 100 MG CAPSULE PO SCH (09:27)
[2021-09-08] MEDS: POLYETHYLENE GLYCOL POWDER 17 GM PACK PO SCH (09:27)
[2021-09-08] MEDS: SERTRALINE 50 MG TABLET PO SCH (09:27)
[2021-09-08] MEDS: guaiFENesin/DM ER 600-30 MG TABLET PO PRN (09:27)
[2021-09-08] MEDS: amLODIPine 10 MG TABLET PO SCH (09:27)
[2021-09-08] MEDS: PANTOPRAZOLE 40 MG TABLET PO SCH (09:28)
[2021-09-08] MEDS: INSULIN REGULAR 100 UNIT/ML SUBCUT SCH ×4 (09:28→21:58)
[2021-09-08] MEDS: CHOLECALCIFEROL 1,000 UNIT TABLET PO SCH (10:24)
[2021-09-08] MEDS ORDERED: DEXTROSE 50% 25 GM/50 ML VIAL IV PRN (14:18)
[2021-09-08] MEDS: ENOXAPARIN 40 MG/0.4 ML SYRINGE SUBCUT SCH (21:58)
[2021-09-08] MEDS: INSULIN GLARGINE 100 UNIT/ML SUBCUT SCH (21:58)
[2021-09-09] MEDS: ALBUTEROL/IPRATROPIUM 3 ML NEB RESP TX SCH ×6 (00:55→20:36)
[2021-09-09] MEDS: HYOSCYAMINE 0.125 MG TABLET PO SCH ×3 (03:20→21:57)
[2021-09-09] MEDS: LEVOTHYROXINE 100 MCG TABLET PO SCH (06:45)
[2021-09-09] MEDS: INSULIN REGULAR 100 UNIT/ML SUBCUT SCH ×4 (08:08→22:01)
[2021-09-09] MEDS: ASPIRIN EC 81 MG TABLET PO SCH (08:55)
[2021-09-09] MEDS: CETIRIZINE 10 MG TABLET PO SCH (08:55)
[2021-09-09] MEDS: SERTRALINE 50 MG TABLET PO SCH (08:55)
[2021-09-09] MEDS: amLODIPine 10 MG TABLET PO SCH (08:55)
[2021-09-09] MEDS: BENZONATATE 100 MG CAPSULE PO SCH ×2 (08:55→21:57)
[2021-09-09] MEDS: CHOLECALCIFEROL 1,000 UNIT TABLET PO SCH (08:55)
[2021-09-09] MEDS: PANTOPRAZOLE 40 MG TABLET PO SCH (08:55)
[2021-09-09] MEDS: POLYETHYLENE GLYCOL POWDER 17 GM PACK PO SCH (08:58)
[2021-09-09] MEDS: ACETAMINOPHEN 325 MG TABLET PO PRN (17:38)
[2021-09-09] MEDS: ENOXAPARIN 40 MG/0.4 ML SYRINGE SUBCUT SCH (21:56)
[2021-09-09] MEDS: INSULIN GLARGINE 100 UNIT/ML SUBCUT SCH (22:00)
[2021-09-10] MEDS: ALBUTEROL/IPRATROPIUM 3 ML NEB RESP TX SCH ×7 (00:45→23:45)
[2021-09-10] MEDS: HYOSCYAMINE 0.125 MG TABLET PO SCH ×3 (04:44→21:01)
[2021-09-10] MEDS: LEVOTHYROXINE 100 MCG TABLET PO SCH (06:50)
[2021-09-10] MEDS: INSULIN REGULAR 100 UNIT/ML SUBCUT SCH ×4 (08:57→21:01)
[2021-09-10] MEDS: CETIRIZINE 10 MG TABLET PO SCH (09:11)
[2021-09-10] MEDS: ASPIRIN EC 81 MG TABLET PO SCH (09:11)
[2021-09-10] MEDS: PANTOPRAZOLE 40 MG TABLET PO SCH (09:11)
[2021-09-10] MEDS: BENZONATATE 100 MG CAPSULE PO SCH ×2 (09:11→21:01)
[2021-09-10] MEDS: SERTRALINE 50 MG TABLET PO SCH (09:11)
[2021-09-10] MEDS: amLODIPine 10 MG TABLET PO SCH (09:11)
[2021-09-10] MEDS: CHOLECALCIFEROL 1,000 UNIT TABLET PO SCH (09:11)
[2021-09-10] MEDS: POLYETHYLENE GLYCOL POWDER 17 GM PACK PO SCH (09:12)
[2021-09-10] MEDS: guaiFENesin/DM ER 600-30 MG TABLET PO PRN (21:01)
[2021-09-10] MEDS: INSULIN GLARGINE 100 UNIT/ML SUBCUT SCH (21:01)
[2021-09-10] MEDS: ENOXAPARIN 40 MG/0.4 ML SYRINGE SUBCUT SCH (21:02)
[2021-09-11] MEDS: ALBUTEROL/IPRATROPIUM 3 ML NEB RESP TX SCH ×5 (03:44→19:44)
[2021-09-11] MEDS: HYOSCYAMINE 0.125 MG TABLET PO SCH ×3 (05:29→21:50)
[2021-09-11] MEDS: LEVOTHYROXINE 100 MCG TABLET PO SCH (05:30)
[2021-09-11] MEDS: INSULIN REGULAR 100 UNIT/ML SUBCUT SCH ×4 (07:41→21:51)
[2021-09-11] MEDS: CHOLECALCIFEROL 1,000 UNIT TABLET PO SCH (09:10)
[2021-09-11] MEDS: BENZONATATE 100 MG CAPSULE PO SCH ×2 (09:10→21:50)
[2021-09-11] MEDS: SERTRALINE 50 MG TABLET PO SCH (09:10)
[2021-09-11] MEDS: CETIRIZINE 10 MG TABLET PO SCH (09:10)
[2021-09-11] MEDS: PANTOPRAZOLE 40 MG TABLET PO SCH (09:10)
[2021-09-11] MEDS: amLODIPine 10 MG TABLET PO SCH (09:10)
[2021-09-11] MEDS: ASPIRIN EC 81 MG TABLET PO SCH (09:10)
[2021-09-11] MEDS: POLYETHYLENE GLYCOL POWDER 17 GM PACK PO SCH (09:13)
[2021-09-11] MEDS: ENOXAPARIN 40 MG/0.4 ML SYRINGE SUBCUT SCH (21:51)
[2021-09-11] MEDS: INSULIN GLARGINE 100 UNIT/ML SUBCUT SCH (21:51)
[2021-09-12] MEDS: ALBUTEROL/IPRATROPIUM 3 ML NEB RESP TX SCH ×7 (00:39→23:24)
[2021-09-12] MEDS: HYOSCYAMINE 0.125 MG TABLET PO SCH ×3 (05:25→21:13)
[2021-09-12] MEDS: LEVOTHYROXINE 100 MCG TABLET PO SCH ×2 (05:25→05:43)
[2021-09-12 05:35] LABS: Basophils % 0.5 % (0.0-0.8); Eosinophils # 0.1 10*3/uL (0.0-0.87); Hematocrit 32.5 VOL% (35.7-47.0); Hemoglobin 9.8 GM/DL (12.0-16.0); Immature Granulocytes % 2.2 %; Immature Granulocytes Absolute 0.14 #; Lymphocytes # 1.6 10*3/uL (1.4-4.0); Lymphocytes % 26.2 % (21.3-54.2); Mean Corpuscular HGB Conc 30.2 GM/DL (32-36); Mean Corpuscular Volume 84.4 FL (87-102); Mean Platelet Volume 9.4 FL (9.6-12.0); Monocytes % 7.7 % (1.7-12.7); Neutrophils % 62.4 % (38.7-73.9); Platelet Count 214 T/CUMM (130-400); Red Blood Count 3.85 MC/CUMM (3.8-5.5); Red Cell Distribution Width 18.3 % (9.3-17.3); White Blood Count 6.2 T/CUMM (4-12)
[2021-09-12 06:06] LABS: Calcium 8.7 MG/DL (8.5-10.1); Osmolality,Calculated 282.3 MOS/KG (273-304); Potassium 3.3 MMOL/L (3.5-5.1)
[2021-09-12] MEDS: SERTRALINE 50 MG TABLET PO SCH (09:59)
[2021-09-12] MEDS: ASPIRIN EC 81 MG TABLET PO SCH (09:59)
[2021-09-12] MEDS: amLODIPine 10 MG TABLET PO SCH (09:59)
[2021-09-12] MEDS: CETIRIZINE 10 MG TABLET PO SCH (09:59)
[2021-09-12] MEDS: PANTOPRAZOLE 40 MG TABLET PO SCH (09:59)
[2021-09-12] MEDS: INSULIN REGULAR 100 UNIT/ML SUBCUT SCH ×4 (09:59→21:14)
[2021-09-12] MEDS: CHOLECALCIFEROL 1,000 UNIT TABLET PO SCH (09:59)
[2021-09-12] MEDS: BENZONATATE 100 MG CAPSULE PO SCH ×2 (10:00→21:13)
[2021-09-12] MEDS: POLYETHYLENE GLYCOL POWDER 17 GM PACK PO SCH (10:00)
[2021-09-12] MEDS: ENOXAPARIN 40 MG/0.4 ML SYRINGE SUBCUT SCH (21:14)
[2021-09-12] MEDS: INSULIN GLARGINE 100 UNIT/ML SUBCUT SCH (21:14)
[2021-09-13] MEDS: ALBUTEROL/IPRATROPIUM 3 ML NEB RESP TX SCH ×6 (03:32→23:48)
[2021-09-13] MEDS: LEVOTHYROXINE 100 MCG TABLET PO SCH (05:56)
[2021-09-13] MEDS: HYOSCYAMINE 0.125 MG TABLET PO SCH ×3 (05:56→21:33)
[2021-09-13] MEDS: INSULIN REGULAR 100 UNIT/ML SUBCUT SCH ×4 (07:32→21:32)
[2021-09-13 08:15] LABS: Osmolality,Calculated 282.3 MOS/KG (273-304); Potassium 3.7 MMOL/L (3.5-5.1)
[2021-09-13] MEDS: POLYETHYLENE GLYCOL POWDER 17 GM PACK PO SCH (10:00)
[2021-09-13] MEDS: POTASSIUM CHLORIDE 20 MEQ TABLET PO PRN (10:00)
[2021-09-13] MEDS: CETIRIZINE 10 MG TABLET PO SCH (10:01)
[2021-09-13] MEDS: BENZONATATE 100 MG CAPSULE PO SCH ×2 (10:01→21:33)
[2021-09-13] MEDS: CHOLECALCIFEROL 1,000 UNIT TABLET PO SCH (10:01)
[2021-09-13] MEDS: ASPIRIN EC 81 MG TABLET PO SCH (10:01)
[2021-09-13] MEDS: PANTOPRAZOLE 40 MG TABLET PO SCH (10:01)
[2021-09-13] MEDS: amLODIPine 10 MG TABLET PO SCH (10:01)
[2021-09-13] MEDS: MAGNESIUM SULF RIDER 2 GM/50 ML PREMIX IV PRN (10:02)
[2021-09-13] MEDS: SERTRALINE 50 MG TABLET PO SCH (10:04)
[2021-09-13] MEDS: INSULIN GLARGINE 100 UNIT/ML SUBCUT SCH (21:32)
[2021-09-13] MEDS: ENOXAPARIN 40 MG/0.4 ML SYRINGE SUBCUT SCH (21:32)
[2021-09-14] MEDS: ALBUTEROL/IPRATROPIUM 3 ML NEB RESP TX SCH ×3 (03:15→11:26)
[2021-09-14 05:34] LABS: Basophils % 0.5 % (0.0-0.8); Eosinophils # 0.1 10*3/uL (0.0-0.87); Eosinophils % 0.9 % (0.00-10.9); Hematocrit 31.1 VOL% (35.7-47.0); Hemoglobin 9.2 GM/DL (12.0-16.0); Immature Granulocytes % 0.9 %; Immature Granulocytes Absolute 0.05 #; Lymphocytes # 1.6 10*3/uL (1.4-4.0); Lymphocytes % 27.7 % (21.3-54.2); Mean Corpuscular HGB Conc 29.6 GM/DL (32-36); Mean Corpuscular Volume 84.7 FL (87-102); Mean Platelet Volume 9.6 FL (9.6-12.0); Monocytes % 10.3 % (1.7-12.7); Neutrophils % 59.7 % (38.7-73.9); Platelet Count 195 T/CUMM (130-400); Red Blood Count 3.67 MC/CUMM (3.8-5.5); Red Cell Distribution Width 18.6 % (9.3-17.3); White Blood Count 5.9 T/CUMM (4-12)
[2021-09-14 05:57] LABS: Calcium 8.6 MG/DL (8.5-10.1); Osmolality,Calculated 288.3 MOS/KG (273-304); Potassium 3.9 MMOL/L (3.5-5.1)
[2021-09-14] MEDS: HYOSCYAMINE 0.125 MG TABLET PO SCH ×2 (06:14→12:55)
[2021-09-14] MEDS: LEVOTHYROXINE 100 MCG TABLET PO SCH (06:14)
[2021-09-14] MEDS: PANTOPRAZOLE 40 MG TABLET PO SCH (08:48)
[2021-09-14] MEDS: BENZONATATE 100 MG CAPSULE PO SCH (08:48)
[2021-09-14] MEDS: POLYETHYLENE GLYCOL POWDER 17 GM PACK PO SCH (08:48)
[2021-09-14] MEDS: CETIRIZINE 10 MG TABLET PO SCH (08:49)
[2021-09-14] MEDS: CHOLECALCIFEROL 1,000 UNIT TABLET PO SCH (08:49)
[2021-09-14] MEDS: ASPIRIN EC 81 MG TABLET PO SCH (08:49)
[2021-09-14] MEDS: SERTRALINE 50 MG TABLET PO SCH (08:49)
[2021-09-14] MEDS: amLODIPine 10 MG TABLET PO SCH (08:49)
[2021-09-14] MEDS: INSULIN REGULAR 100 UNIT/ML SUBCUT SCH ×2 (08:49→12:50)
[2021-09-14 12:42] VITALS: BP 118/59
[2021-09-14] MEDS ORDERED: INSULIN GLARGINE 100 UNIT/ML SUBCUT SCH (21:00)
== END 2021-09-14 14:00 | disposition home health service (06) | DRG 871 ==
LOC: EDUNIT# → EDBD → N.ED 17:21 → N.EDINP 21:43 → SUATTDRO 21:43 → N.5E 22:38
PROVIDERS: ADMIT Internal Medicine; ATTEND Internal Medicine

== ENCOUNTER 2022-01-16 19:25 | Inpatient (IN) ==
[2022-01-16 20:08] LABS: Basophils % 0.3 % (0.0-0.8); Eosinophils # 0.1 10*3/uL (0.0-0.87); Eosinophils % 1.1 % (0.00-10.9); Hematocrit 36.1 VOL% (35.7-47.0); Hemoglobin 11.3 GM/DL (12.0-16.0); Immature Granulocytes % 0.6 %; Immature Granulocytes Absolute 0.04 #; Lymphocytes # 1.8 10*3/uL (1.4-4.0); Lymphocytes % 24.9 % (21.3-54.2); Mean Corpuscular HGB Conc 31.3 GM/DL (32-36); Mean Corpuscular Volume 80.8 FL (87-102); Mean Platelet Volume 9.6 FL (9.6-12.0); Monocytes # 0.5 10*3/uL (0.11-0.8); Monocytes % 7.4 % (1.7-12.7); Neutrophils % 65.7 % (38.7-73.9); Platelet Count 186 T/CUMM (130-400); Red Blood Count 4.47 MC/CUMM (3.8-5.5); Red Cell Distribution Width 16.7 % (9.3-17.3); White Blood Count 7.3 T/CUMM (4-12)
[2022-01-16 20:24] LABS: PT Patient Result 11.1 SECS (10.5-12.0); Partial Thromboplastin Time 24.9 SECS (23.8-32.1)
[2022-01-16 20:25] LABS: Alanine Aminotransferase 18 U/L (13-56); Alkaline Phosphatase 74 U/L (45-117); Aspartate Amino Transferase 22 U/L (0-37); Bilirubin,Total < 0.39 MG/DL (0.20-1.00); Blood Urea Nitrogen 18 MG/DL (7-18); Calcium 8.6 MG/DL (8.5-10.1); Carbon Dioxide 25 MMOL/L (21-32); Chloride 112 MMOL/L (98-107); Estimated Glom Filtration Rate 56 ML/MIN; Glucose 176 MG/DL (74-106); Osmolality,Calculated 286.3 MOS/KG (273-304); Potassium 3.3 MMOL/L (3.5-5.1); Sodium 141 MMOL/L (136-145); Total Protein 8.2 G/DL (6.4-8.2)
[2022-01-16] MEDS ORDERED: POTASSIUM CHLORIDE 20 MEQ TABLET PO STA (22:21)
[2022-01-16] MEDS ORDERED: cefTRIAXone 1,000 MG in SODIUM CHLORIDE 0.9% 100 ML IV STA (23:42)
[2022-01-17] MEDS ORDERED: diphenhydrAMINE CAP 25 MG CAPSULE PO PRN (00:37)
[2022-01-17] MEDS ORDERED: hydrALAZINE 20 MG/1 ML VIAL IV PRN (00:37)
[2022-01-17] MEDS ORDERED: ONDANSETRON 4 MG/2 ML VIAL IV PRN (00:37)
[2022-01-17] MEDS ORDERED: NICOTINE 21 MG/24 HR PATCH TRANSDERM PRN (00:37)
[2022-01-17] MEDS ORDERED: DOCUSATE SODIUM 100 MG CAPSULE PO PRN (00:37)
[2022-01-17] MEDS ORDERED: ZALEPLON 5 MG CAPSULE PO PRN (00:37)
[2022-01-17] MEDS ORDERED: DEXTROSE 50% 25 GM/50 ML VIAL IV PRN (00:37)
[2022-01-17] MEDS ORDERED: GLUCAGON 1 MG VIAL IM PRN ×2 (00:37)
[2022-01-17] MEDS ORDERED: DEXTROSE 10% 250 ML BAG IV PRN (00:43)
[2022-01-17] MEDS: ALBUTEROL/IPRATROPIUM 3 ML NEB RESP TX SCH ×4 (01:10→19:10)
[2022-01-17] MEDS: AZITHROMYCIN INJ 500 MG in SODIUM CHLORIDE 0.9% 250 ML IV SCH (01:44)
[2022-01-17] MEDS: ENOXAPARIN 100 MG/ML SYRINGE SUBCUT SCH ×2 (01:44→13:26)
[2022-01-17 04:11] LABS: Basophils % 0.1 % (0.0-0.8); Eosinophils # 0.1 10*3/uL (0.0-0.87); Eosinophils % 1.1 % (0.00-10.9); Hematocrit 32.4 VOL% (35.7-47.0); Hemoglobin 10.2 GM/DL (12.0-16.0); Immature Granulocytes % 0.7 %; Immature Granulocytes Absolute 0.05 #; Lymphocytes # 1.9 10*3/uL (1.4-4.0); Lymphocytes % 26.3 % (21.3-54.2); Mean Corpuscular HGB Conc 31.5 GM/DL (32-36); Mean Corpuscular Volume 80.6 FL (87-102); Mean Platelet Volume 9.8 FL (9.6-12.0); Monocytes # 0.5 10*3/uL (0.11-0.8); Monocytes % 7.4 % (1.7-12.7); Neutrophils % 64.4 % (38.7-73.9); Platelet Count 193 T/CUMM (130-400); Red Blood Count 4.02 MC/CUMM (3.8-5.5); Red Cell Distribution Width 16.4 % (9.3-17.3); White Blood Count 7.2 T/CUMM (4-12)
[2022-01-17 04:28] LABS: Hypochromia 1+
[2022-01-17 04:29] LABS: Microcytosis 1+; Platelet Estimate Adequate
[2022-01-17 04:46] LABS: Calcium 7.9 MG/DL (8.5-10.1); Osmolality,Calculated 285.3 MOS/KG (273-304); Potassium 3.9 MMOL/L (3.5-5.1); Thyroid Stimulating Hormone 1.55 uIU/ml (0.358-3.74)
[2022-01-17] MEDS: LEVOTHYROXINE 175 MCG TABLET PO SCH (06:49)
[2022-01-17] MEDS: PANTOPRAZOLE 40 MG TABLET PO SCH (10:38)
[2022-01-17] MEDS: LOSARTAN 50 MG TABLET PO SCH (10:38)
[2022-01-17] MEDS: sitaGLIPtin 25 MG TABLET PO SCH (10:38)
[2022-01-17] MEDS: carvediloL 12.5 MG TABLET PO SCH ×2 (10:38→22:07)
[2022-01-17] MEDS: ASPIRIN EC 81 MG TABLET PO SCH (10:39)
[2022-01-17] MEDS: INSULIN LISPRO 100 UNIT/ML SUBCUT SCH ×4 (10:44→21:00)
[2022-01-17] MEDS: methylPREDNISolone SOD SUC 40 MG/1 ML VIAL IV SCH (17:32)
[2022-01-17] MEDS: cefTRIAXone 1,000 MG in SODIUM CHLORIDE 0.9% 100 ML IV SCH (22:07)
[2022-01-18] MEDS: ENOXAPARIN 100 MG/ML SYRINGE SUBCUT SCH (00:17)
[2022-01-18] MEDS: AZITHROMYCIN INJ 500 MG in SODIUM CHLORIDE 0.9% 250 ML IV SCH (00:18)
[2022-01-18] MEDS: methylPREDNISolone SOD SUC 40 MG/1 ML VIAL IV SCH ×3 (00:18→17:31)
[2022-01-18] MEDS: ALBUTEROL/IPRATROPIUM 3 ML NEB RESP TX SCH ×4 (00:20→19:17)
[2022-01-18] MEDS: LEVOTHYROXINE 175 MCG TABLET PO SCH (06:01)
[2022-01-18] MEDS: ASPIRIN EC 81 MG TABLET PO SCH (08:19)
[2022-01-18] MEDS: LOSARTAN 50 MG TABLET PO SCH (08:19)
[2022-01-18] MEDS: sitaGLIPtin 25 MG TABLET PO SCH (08:19)
[2022-01-18] MEDS: carvediloL 12.5 MG TABLET PO SCH ×2 (08:19→21:30)
[2022-01-18] MEDS: PANTOPRAZOLE 40 MG TABLET PO SCH (08:19)
[2022-01-18] MEDS: INSULIN LISPRO 100 UNIT/ML SUBCUT SCH ×4 (08:21→21:30)
[2022-01-18 10:43] LABS: Hematocrit 35.8 VOL% (35.7-47.0); Hemoglobin 11.1 GM/DL (12.0-16.0); Immature Granulocytes % 0.7 %; Immature Granulocytes Absolute 0.06 #; Lymphocytes # 1.2 10*3/uL (1.4-4.0); Lymphocytes % 13.7 % (21.3-54.2); Mean Corpuscular Volume 80.6 FL (87-102); Mean Platelet Volume 9.7 FL (9.6-12.0); Monocytes # 0.3 10*3/uL (0.11-0.8); Monocytes % 2.9 % (1.7-12.7); Neutrophils % 82.7 % (38.7-73.9); Platelet Count 238 T/CUMM (130-400); Red Blood Count 4.44 MC/CUMM (3.8-5.5); Red Cell Distribution Width 16.5 % (9.3-17.3)
[2022-01-18 11:03] LABS: Osmolality,Calculated 285.8 MOS/KG (273-304); Potassium 4.1 MMOL/L (3.5-5.1)
[2022-01-18] MEDS: guaiFENesin/DM ER 600-30 MG TABLET PO PRN ×2 (11:52→21:30)
[2022-01-18] MEDS ORDERED: OXYMETAZOLINE 0.05% NASAL SPRAY 15 ML BOTTLE BOTH NARES PRN (12:50)
[2022-01-18] MEDS: SODIUM CHLORIDE 0.9% 1,000 ML IV SCH (14:08)
[2022-01-18 15:40] LABS: % Iron Saturation 14.1 % (18-50)
[2022-01-18 18:59] LABS: Folate 9.81 NG/ML (5.38-24.0)
[2022-01-18] MEDS: ACETAMINOPHEN 325 MG TABLET PO PRN (21:30)
[2022-01-18] MEDS: cefTRIAXone 1,000 MG in SODIUM CHLORIDE 0.9% 100 ML IV SCH (21:31)
[2022-01-19] MEDS: methylPREDNISolone SOD SUC 40 MG/1 ML VIAL IV SCH ×2 (01:22→10:13)
[2022-01-19 05:43] LABS: Hematocrit 31.7 VOL% (35.7-47.0); Hemoglobin 9.7 GM/DL (12.0-16.0); Immature Granulocytes Absolute 0.09 #; Lymphocytes # 1.1 10*3/uL (1.4-4.0); Lymphocytes % 12.3 % (21.3-54.2); Mean Corpuscular HGB Conc 30.6 GM/DL (32-36); Mean Corpuscular Volume 81.9 FL (87-102); Mean Platelet Volume 10.1 FL (9.6-12.0); Monocytes # 0.4 10*3/uL (0.11-0.8); Monocytes % 4.4 % (1.7-12.7); Neutrophils % 82.3 % (38.7-73.9); Platelet Count 220 T/CUMM (130-400); Red Blood Count 3.87 MC/CUMM (3.8-5.5); Red Cell Distribution Width 16.8 % (9.3-17.3); White Blood Count 8.7 T/CUMM (4-12)
[2022-01-19] MEDS: SODIUM CHLORIDE 0.9% 1,000 ML IV SCH ×2 (05:48→21:24)
[2022-01-19] MEDS: ENOXAPARIN 40 MG/0.4 ML SYRINGE SUBCUT SCH (05:48)
[2022-01-19] MEDS: LEVOTHYROXINE 175 MCG TABLET PO SCH (05:48)
[2022-01-19 05:58] LABS: Calcium 8.4 MG/DL (8.5-10.1); Osmolality,Calculated 293.7 MOS/KG (273-304); Potassium 4.8 MMOL/L (3.5-5.1)
[2022-01-19] MEDS: ALBUTEROL/IPRATROPIUM 3 ML NEB RESP TX SCH ×4 (07:50→19:45)
[2022-01-19] MEDS: INSULIN LISPRO 100 UNIT/ML SUBCUT SCH ×4 (10:11→21:26)
[2022-01-19] MEDS: LOSARTAN 50 MG TABLET PO SCH (10:12)
[2022-01-19] MEDS: ASPIRIN EC 81 MG TABLET PO SCH (10:12)
[2022-01-19] MEDS: carvediloL 12.5 MG TABLET PO SCH ×2 (10:12→21:27)
[2022-01-19] MEDS: sitaGLIPtin 25 MG TABLET PO SCH (10:13)
[2022-01-19] MEDS: PANTOPRAZOLE 40 MG TABLET PO SCH (10:13)
[2022-01-19] MEDS: AZITHROMYCIN 250 MG TABLET PO SCH (10:14)
[2022-01-19] MEDS: cefTRIAXone 1,000 MG in SODIUM CHLORIDE 0.9% 100 ML IV SCH (21:25)
[2022-01-19] MEDS: FERROUS SULFATE 325 MG TABLET PO SCH (21:27)
[2022-01-19] MEDS: guaiFENesin/DM ER 600-30 MG TABLET PO PRN (21:27)
[2022-01-19] MEDS: ACETAMINOPHEN 325 MG TABLET PO PRN (21:27)
[2022-01-20] MEDS: ALBUTEROL/IPRATROPIUM 3 ML NEB RESP TX SCH (00:50)
[2022-01-20] MEDS: LEVOTHYROXINE 175 MCG TABLET PO SCH (05:34)
[2022-01-20] MEDS: guaiFENesin/DM ER 600-30 MG TABLET PO PRN (05:34)
[2022-01-20 08:04] VITALS: BP 128/54
[2022-01-20] MEDS: AZITHROMYCIN 250 MG TABLET PO SCH (08:48)
[2022-01-20] MEDS: LOSARTAN 50 MG TABLET PO SCH (08:48)
[2022-01-20] MEDS: INSULIN LISPRO 100 UNIT/ML SUBCUT SCH (08:48)
[2022-01-20] MEDS: sitaGLIPtin 25 MG TABLET PO SCH (08:48)
[2022-01-20] MEDS: ASPIRIN EC 81 MG TABLET PO SCH (08:49)
[2022-01-20] MEDS: SODIUM CHLORIDE 0.9% 1,000 ML IV SCH (08:49)
[2022-01-20] MEDS: FERROUS SULFATE 325 MG TABLET PO SCH (08:49)
[2022-01-20] MEDS: carvediloL 12.5 MG TABLET PO SCH (08:49)
[2022-01-20] MEDS: ENOXAPARIN 40 MG/0.4 ML SYRINGE SUBCUT SCH (08:50)
[2022-01-20] MEDS: PANTOPRAZOLE 40 MG TABLET PO SCH (08:54)
[2022-01-20] MEDS ORDERED: predniSONE 20 MG TABLET PO SCH (09:00)
== END 2022-01-20 12:15 | disposition home or self-care (01) | DRG 194 ==
LOC: EDUNIT# → EDBD → N.ED 19:25 → N.EDINP 01-17 00:37 → N.5E 01-17 05:15
PROVIDERS: ADMIT Internal Medicine; ATTEND Internal Medicine